=== PATIENT | female | born 1950 | race Caucasian/White ===

== ENCOUNTER 2016-04-27 16:01 | Emergency (ER) | payer MEDICARE, OTHER ==
[~2016-04-27] VITALS: Ht 152.4 cm; Wt 118.0 kg
[~2016-04-27 16:01] MED LIST: ACTO30TA10 PO; ALBU6.7H INH; AMLO10TA2 PO; AMLO2.5T PO; ATEN25TA PO; BD P31MI2; CAPT50TA PO; CARB200T PO; CARI350T20 PO; CHRO200T2; CONTOUR TEST STRIPS; CREON24 PO; CYTO5TAB PO; DICL75TA PO; ENOX60IN SQ; ENOX60P SQ; FURO1TAB60 PO; FURO40TA PO; GABA400C5 PO; GLIM1TAB PO; HUMA75IN SQ; HUMSS SQ; HYDR-3535 PO; HYDR10SO PO; INSU1INJ5 SQ; LEVO50TA4 PO; LIDO5DIS35 TOPICAL; LINA145C PO; MIRA33504 PO; NADO20TA PO; NADO40TA PO; NOVOINJ SQ; OMEP40CA2 PO; REST15CA PO; ROSU40 PO; SENN8.6T5 PO; SIME80CH CHEW; TEMA15CA PO; TRAZ100T4 PO; ZITHTAB PO; [UNRECOGNIZED DRUG - SUPPLY]
[2016-04-27 17:00] VITALS: BP 198/66; PULSE 52; RESP 18; TEMP 97.7; O2SAT 95
[2016-04-27] MEDS ORDERED: SODIUM CHLORIDE 0.9% FLUSH 5 ML FLUSH IVF PRN (17:15)
--- NOTE | 2016-04-27 17:16 | PD ---
HPI Chief Complaint: Syncope/Near-Syncope Time Seen by Provider: 16:53 Travel History International Travel<30 days: No Contact w/Intl Traveler<30days: No Traveled to known affect area: No History of Present Illness HPI The patient was seen and examined in the presence of the nurse. This patient complains of syncopal episode. She was feeling dizzy and lightheaded shortly after eating a meal at a [employer] restaurant. She passed out and fell. She struck the back of her head on the ground. She does complain of headache at the site of impact. She denies any neck pain. No other neurologic complaint. She is no longer dizzy or lightheaded. Her headache is only complaint she has. I do not consider it a distracting injury. She denies blood thinners. She does have history of hypertension and presents with a significant elevated blood pressure. She reports that she has white coat syndrome on top of her blood pressure issues and is hesitant to take anything for it and we compromised on a dose of procardia. Duration was about 5 minutes prior to the syncopal episode. Severity of symptoms is moderate. No alleviating factors PFSH Past Medical History Hx Anticoagulant Therapy: Yes (LOVENOX) Anemia: Yes Arthritis: Yes (OA, RA, SA, FIBRO) Asthma: Yes Autoimmune Disease: No Blood Disorders: Yes (pt is on lovenox ) Anxiety: Yes Depression: Yes Heart Rhythm Problems: Yes (MURMUR) Cancer: No Cardiovascular Problems: No High Cholesterol: Yes Chemotherapy: No Chest Pain: No Congestive Heart Failure: No COPD: No Cerebrovascular Accident: Yes Diabetes: Yes Diminished Hearing: No Deep Vein Thrombosis: Yes Endocrine: Yes Fibromyalgia: Yes Gastrointestinal Disorders: Yes (excessive gas,) GERD: No Genitourinary: No Hepatitis: No Hiatal Hernia: Yes Hypertension: Yes Immune Disorder: No Implanted Vascular Access Dvce: Yes Kidney Stones: No Musculoskeletal: Yes Neurologic: Yes (cva-residual none) Psychiatric: No Reproductive: Yes Respiratory: Yes (ASTHMA) Immunizations Current: Yes Migraines: No Pneumonia: Yes Radiation Therapy: No Renal Failure: No Seizures: Yes (AUGUST 2011) Sickle Cell Disease: No Sleep Apnea: No Thyroid Disease: No Ulcer: No Menopausal: Yes : 1 Para: 1 Dilation and Curettage (D&C): Yes Past Surgical History Abdominal Surgery: Yes ( ABDOMINAL TUMORS REMOVED) AICD: No Arteriovenous Shunt: No Cardiac Surgery: No Cholecystectomy: Yes Ear Surgery: No Endocrine Surgery: No Eye Surgery: No Genitourinary Surgery: Yes (R URETERAL STENT) Gynecologic Surgery: Yes (D&C X4, TOTAL HYSTERECTOMY, BILATERAL OOPHORECTOMY ) Hysterectomy: Yes Insulin Pump: No Joint Replacement: Yes (RIGHT and left KNEE) Neurologic Surgery: Yes (BRAIN -- MENINGIOMA REMOVED 1999) Oral Surgery: Yes (TONSILLECTOMY) Pacemaker: No Tonsillectomy: Yes Other Surgery: Yes (filter placed for blood clots) Social History Alcohol Use: Yes (RARELY) Tobacco Use: No Substance Use: No Allergies-Medications (Allergen,Severity, Reaction): Coded Allergies: Adhesives (Verified Allergy, Severe, skin pealing, 04/27/16) Aspirin (Verified Allergy, Severe, HIVES, 04/27/16) Clonidine (Verified Allergy, Severe, Psychosis. Leg edema, , 04/27/16) "MAKES ME FEEL LOOPY" Compazine (Verified Allergy, Severe, b/p drop, 04/27/16) Coumadin (Verified Allergy, Severe, PT DOES NOT KNOW REACTION, 04/27/16) Erythromycin (Verified Allergy, Severe, 04/27/16) Keflex (Verified Allergy, Severe, Nausea/Vomiting, 04/27/16) Mobic (Verified Allergy, Severe, 04/27/16) PT STATES SHE CAN'T TAKE NSAIDS Morphine (Verified Allergy, Severe, Hallucinations, 04/27/16) Nonsteroidal Anti-Inflammatory Agts (Verified Allergy, Severe, 04/27/16) Percocet (Verified Allergy, Severe, Hallucinations, 04/27/16) Tetracycline (Verified Allergy, Severe, UNKNOWN REACTION PER PT, 04/27/16) Theophylline (Verified Allergy, Severe, Nausea/Vomiting, 04/27/16) Amoxicillin (Verified Allergy, Intermediate, ITCHING, 04/27/16) Antivert (Verified Adverse Reaction, Severe, Nausea/Vomiting,dizzy, ) Cipro (Verified Adverse Reaction, Severe, Nausea/Vomiting, 04/27/16) Effexor (Verified Adverse Reaction, Severe, All the SE, 04/27/16) Glucophage (Verified Adverse Reaction, Severe, Got hypoglycemic and passed out x 2. Dr MAULIK Ridley , 04/27/16) advised her never to take again. Lipitor (Verified Adverse Reaction, Severe, numbness of both legs. , 04/27) Promethazine (Verified Adverse Reaction, Severe, low blood pressure, ) by history according to patient. Uncoded Allergies: NICKEL (Allergy, Severe, RASH, 08/31/13) swelling Ice (Adverse Reaction, Severe, Severe muscle spasms and cramps, 08/31/13) Reported Meds & Prescriptions Reported Meds & Active Scripts Active Lasix (Furosemide) 40 Mg Tab 40 Mg PO DAILY Diclofenac Sodium DR (Diclofenac Sodium) 75 Mg Tabdr 75 Mg PO BID Trazodone (Trazodone HCl) 100 Mg Tab 100 Mg PO HS take this with 150mg tab for sleep Carisoprodol 350 Mg Tab 350 Mg PO TID PRN Lortab (Hydrocodone-Acetaminophen) 10-325 Mg Tab 1 Tab PO Q4H PRN 1-2 three times a day for pain Linzess (Linaclotide) 145 Mcg Cap 145 Mcg PO DAILY Carbamazepine 200 Mg Tab 400 Mg PO TID Levothyroxine (Levothyroxine Sodium) 50 Mcg Tab 50 Mcg PO DAILY Crestor (Rosuvastatin Calcium) 40 Mg Tab 40 Mg PO HS Atenolol 25 Mg Tab 25 Mg PO DAILY Proventil Hfa 6.7 GM Inh (Albuterol Sulfate) 90 Mcg/Act Aer 2 Puff INH Q4HR PRN Captopril 50 Mg Tab 50 Mg PO BIDAC Take 1 hour before meals. Miralax Powder (Polyethylene Glycol 3350 Powder) 17 Gm Powd 17 Gm PO DAILY Mix and dissolve one measuring cap-ful (17 grams) in water or juice. Glimepiride 1 Mg Tab 2 Tab PO BID Take with breakfast or first main meal Actos (Pioglitazone HCl) 30 Mg Tab 30 Mg PO DAILY Temazepam 15 Mg Cap 15 Mg PO HS PRN Amlodipine (Amlodipine Besylate) 2.5 Mg Tab 2.5 Mg PO BID Nadolol 20 Mg Tab 20 Mg PO DAILY Reported Creon (Amylase/Lipase/Protease) 24,000-76,000-120,000 Units Cap 1 Cap PO BID Humalog Inj (Insulin Human Lispro) 1,000 Unit/10 Ml Vial 2-12 Units SQ ACHS Max dose at bedtime:( )units; sugars < 70,(0)units; sugars 150-199,(2)units; sugars 200-249,(4)units; sugars 250-299,(7)units; sugars 300-349,(10)units; sugars more than 349,(12)units. Levemir Flextouch Pen Inj (Insulin Detemir) 300 unit/3 ML Pen 20 Units SQ HS Simethicone 80 Mg Chw 80 Mg CHEW QID PRN Senna (Sennosides) 8.6 Mg Tab 2 Tab PO BID HOLD FOR LOOSE STOOL Lidoderm Patch 12 HR (Lidocaine) 5% Patch 1 Patch TOPICAL DAILY PRN Remove patch after 12 hours Gabapentin 400 Mg Cap 2 Cap PO BID Cytomel (Liothyronine Sodium) 5 Mcg Tab 5 Mcg PO DAILY Omeprazole 40 Mg Cap 40 Mg PO DAILY Enoxaparin Inj (Enoxaparin Sodium) 60 Mg/0.6 Ml Syr 60 Mg SQ BID Review of Systems General / Constitutional: No: Fever Eyes: No: Visual changes HENT: Positive: Headaches, Lightheadedness Cardiovascular: Positive: Syncope, No: Chest Pain or Discomfort Respiratory: No: Shortness of Breath Gastrointestinal: No: Abdominal Pain Genitourinary: No: Dysuria Musculoskeletal: No: Pain Skin: No Rash Neurologic: Positive: Dizziness, Syncope, Headache, No: Weakness Psychiatric: No: Depression Endocrine: No: Polydipsia Hematologic/Lymphatic: No: Easy Bruising Physical Exam Narrative GENERAL: Well-nourished, well-developed patient in no apparent distress. SKIN: Warm and dry. HEAD: Swollen area on the right posterior scalp without laceration. Normocephalic. EYES: Pupils equal and round. No scleral icterus. No injection or drainage. ENT: No nasal bleeding or discharge. Mucous membranes pink and moist. NECK: Trachea midline. No JVD. No midline tenderness CARDIOVASCULAR: Regular rate and rhythm. No murmur appreciated. RESPIRATORY: No accessory muscle use. Clear to auscultation. Breath sounds equal bilaterally. GASTROINTESTINAL: Abdomen soft, non-tender, nondistended. Hepatic and splenic margins not palpable. MUSCULOSKELETAL: No obvious deformities. No clubbing. No cyanosis. No edema. NEUROLOGICAL: Awake and alert. No obvious cranial nerve deficits. Motor grossly within normal limits. Normal speech. PSYCHIATRIC: Appropriate mood and affect; insight and judgment normal. Data Data Last Documented VS Vital Signs Date Time Temp Pulse Resp B/P Pulse Ox O2 Delivery O2 Flow Rate FiO2 04/27/16 17:00 97.7 52 18 198/66 95 04/27/16 17:00 Room Air Orders Electrocardiogram (04/27/16 17:08) Basic Metabolic Panel (Bmp) (04/27/16 17:08) Complete Blood Count With Diff (04/27/16 17:08) Ecg Monitoring (04/27/16 17:08) Iv Access Insert/Monitor (04/27/16 17:08) Sodium Chloride 0.9% Flush (Ns Flush) (04/27/16 17:15) Ct Brain W/O Iv Contrast(Rout) (04/27/16 ) Nifedipine (Procardia) (04/27/16 17:30) Labs Laboratory Tests Test 04/27/16 17:20 White Blood Count 3.9 TH/MM3 Red Blood Count 3.97 MIL/MM3 Hemoglobin 12.1 GM/DL Hematocrit 36.1 % Mean Corpuscular Volume 90.9 FL Mean Corpuscular Hemoglobin 30.5 PG Mean Corpuscular Hemoglobin 33.5 % Concent Red Cell Distribution Width 12.7 % Platelet Count 151 TH/MM3 Mean Platelet Volume 6.3 FL Neutrophils (%) (Auto) 55.7 % Lymphocytes (%) (Auto) 33.3 % Monocytes (%) (Auto) 6.4 % Eosinophils (%) (Auto) 4.0 % Basophils (%) (Auto) 0.6 % Neutrophils # (Auto) 2.2 TH/MM3 Lymphocytes # (Auto) 1.3 TH/MM3 Monocytes # (Auto) 0.2 TH/MM3 Eosinophils # (Auto) 0.2 TH/MM3 Basophils # (Auto) 0.0 TH/MM3 CBC Comment DIFF FINAL Differential Comment Sodium Level 130 MEQ/L Potassium Level 4.2 MEQ/L Chloride Level 94 MEQ/L Carbon Dioxide Level 29.1 MEQ/L Anion Gap 7 MEQ/L Blood Urea Nitrogen 11 MG/DL Creatinine 0.85 MG/DL Estimat Glomerular Filtration 67 ML/MIN Rate Random Glucose 161 MG/DL Calcium Level 8.2 MG/DL [facility] Medical Decision Making Medical Screen Exam Complete: Yes Emergency Medical Condition: Yes Medical Record Reviewed: Yes Differential Diagnosis Intracranial hemorrhage, concussion, vasovagal episode, cardiac arrhythmia Narrative Course I have reviewed the patient's electronic medical record. Patient is neurologically intact. Given her head injury and headache and ordered brain CT. I reviewed her EKG which shows sinus rhythm without ectopy Extended cardiac monitoring shows sinus rhythm without ectopy CBC is normal Metabolic profile is normal except for hyponatremia of 130. She says that she always has hyponatremia and does not want to alter her diuretic dosing. I gave her dose of 10 mg PO procardia and will reassess her blood pressure Repeat blood pressure is still elevated but lower Patient feels fine and wants to go home Brain CT is negative for intracranial injury She should check and record her blood pressure daily and follow up with primary care Diagnosis Primary Impression: Syncopal episodes Qualified Code: R55 - Syncope, unspecified syncope type Additional Impressions: Head injury, acute Qualified Code: S09.90XA - Head injury, acute, initial encounter Accelerated hypertension Additional Instructions: The patient was advised to follow up with their physician and return if they worsen. Check and record blood pressure daily Med/Other Pt SpecificInfo: Other Disposition: 01 DISCHARGE HOME Condition: Stable Sarkis Alaniz MD Apr 27, 2016 17:16
[2016-04-27] MEDS ORDERED: HUMALOG SQ (17:21)
[2016-04-27] MEDS ORDERED: CREON24 PO (17:21)
[2016-04-27] MEDS ORDERED: INSU1INJ5 SQ (17:21)
[2016-04-27] MEDS ORDERED: NIFEdipine 10 MG CAP PO ONE (17:30)
[2016-04-27 17:34] LABS: AUTOMATED NEUTROPHIL # 2.2 TH/MM3 (1.8-7.7); BASOPHIL % 0.6 % (0.0-2.0); EOSINOPHIL # 0.2 TH/MM3 (0-0.4); HEMATOCRIT 36.1 % (35.0-46.0); HEMO FLAGS DIFF FINAL; LYMPH % 33.3 % (9.0-44.0); LYMPHOCYTE # 1.3 TH/MM3 (1.0-4.8); MEAN CELL VOLUME 90.9 FL (80.0-100.0); MEAN CORPUSCULAR HEMOGLOBIN 30.5 PG (27.0-34.0); MEAN CORPUSCULAR HGB CONC 33.5 % (32.0-36.0); MONO % 6.4 % (0.0-8.0); NEUT % 55.7 % (16.0-70.0); PLATELET COUNT 151 TH/MM3 (150-450); RED BLOOD COUNT 3.97 MIL/MM3 (4.00-5.30); RED CELL DISTRIBUTION WIDTH 12.7 % (11.6-17.2); WHITE BLOOD COUNT 3.9 TH/MM3 (4.0-11.0)
[2016-04-27 17:41] LABS: POTASSIUM 4.2 MEQ/L (3.5-5.1)
[2016-04-27 17:44] LABS: BICARBONATE 29.1 MEQ/L (21.0-32.0)
--- NOTE | 2016-04-27 18:14 | RADHPO ---
EXAM DATE/TIME: 04/27/2016 17:37 [facility] COMPARISON: CT BRAIN W/O CONTRAST, August 27, 2015, 18:31. INDICATIONS : Syncope, mass. RADIATION DOSE: 56.75 CTDIvol (mGy) MEDICAL HISTORY : Cerebrovascular disease. Hypertension. Asthma SURGICAL HISTORY : Craniotomy. ENCOUNTER: Initial ACUITY: 1 day PAIN SCALE: 5/10 LOCATION: cranial TECHNIQUE: Multiple contiguous axial images were obtained of the head. Using automated exposure control and adj ustment of the mA and/or kV according to patient size, radiation dose was kept as low as reasonably a chievable to obtain optimal diagnostic quality images. FINDINGS: CEREBRUM: The ventricles are normal for age. Probable dystrophic type calcifications along the anterior aspect of the right temporal lobe are presumably postsurgical with a right temporoparietal craniotomy. No ev idence of midline shift, mass lesion, hemorrhage or acute infarction. No extra-axial fluid collectio ns are seen. POSTERIOR FOSSA: The cerebellum and brainstem are intact. The 4th ventricle is midline. The cerebellopontine angle i s unremarkable. EXTRACRANIAL: The visualized portion of the orbits is intact. SKULL: The calvaria is intact. No evidence of skull fracture. CONCLUSION: 1. Stable postsurgical changes in the right temporal region. 2. No acute intracranial process. Roe Salgado MD on April 27, 2016 at 18:10 Board Certified Radiologist. This report was verified electronically.
[2016-04-27 18:48] VITALS: BP 181/63; PULSE 50; RESP 18; O2SAT 95
--- NOTE | 2016-04-28 09:20 | EKG ---
Date Performed: 04/27/2016 Time Performed: 17:32:32 PTAGE: 65 years EKG: Sinus bradycardia with borderline 1st degree A-V block IV conduction defect Abnormal ECG PREVIOUS TRACING : 06/03/2015 21.44 Compared to prior tracing no significant change DOCTOR: Joey Bradshaw Interpretating Date/Time 04/28/2016 09:19:12
[2016-05-19] MEDS ORDERED: HYDR-3535 PO (11:00)
[2016-05-19] MEDS ORDERED: CARI350T20 PO (11:01)
[2016-05-21] MEDS ORDERED: OMEP40CA2 PO (11:25)
[2016-05-22] MEDS ORDERED: AMLO2.5T PO (13:22)
[2016-05-22] MEDS ORDERED: MIRA33504 PO (13:22)
[2016-05-27] MEDS ORDERED: VENTAER INH (11:56)
[2016-06-03] MEDS ORDERED: INSU1INJ5 SQ (08:50)
[2016-06-19] MEDS ORDERED: CARI350T20 PO (11:21)
[2016-06-19] MEDS ORDERED: TRAZ100T4 PO (11:22)
[2016-06-19] MEDS ORDERED: HYDR-3535 PO (15:19)
[2016-06-19] MEDS ORDERED: ATEN25TA PO (15:28)
[2016-07-03] MEDS ORDERED: HYDR-3535 PO (15:55)
[2016-07-20] MEDS ORDERED: CARI350T20 PO (19:08)
[2016-07-23] MEDS ORDERED: GABA400C5 PO (07:19)
[2016-08-04] MEDS ORDERED: NOVOLOGP2 SQ (11:38)
[2016-08-07] MEDS ORDERED: HYDR-3535 PO (15:30)
[2016-08-20] MEDS ORDERED: TRAZ100T4 PO (15:27)
[2016-08-25] MEDS ORDERED: SOMA350T PO (15:18)
[2016-08-27] MEDS ORDERED: LANTINJ SQ (09:12)
[2016-09-01] MEDS ORDERED: REST15CA PO (08:27)
[2016-09-01] MEDS ORDERED: DIFL150T PO (11:29)
[2016-09-01] MEDS ORDERED: HYDR-3535 PO (11:31)
== END 2016-04-27 18:57 | disposition home or self-care (01) ==
LOC: PHEFT 16:01
DX: R55 Syncope and collapse (principal); S09.90XA Unspecified injury of head, initial encounter; I10 Essential (primary) hypertension; R51 Headache; R94.31 Abnormal electrocardiogram [ECG] [EKG]; E78.00 Pure hypercholesterolemia, unspecified; E11.9 Type 2 diabetes mellitus without complications; W18.39XA Other fall on same level, initial encounter; Z79.01 Long term (current) use of anticoagulants; Z79.4 Long term (current) use of insulin; Z86.2 Personal history of diseases of the blood and blood-forming organs and certain disorders involving the immune mechanism; Z87.39 Personal history of other diseases of the musculoskeletal system and connective tissue; Z87.09 Personal history of other diseases of the respiratory system; Z86.79 Personal history of other diseases of the circulatory system; Z86.718 Personal history of other venous thrombosis and embolism; Z87.19 Personal history of other diseases of the digestive system; Z86.69 Personal history of other diseases of the nervous system and sense organs; Z86.73 Personal history of transient ischemic attack (TIA), and cerebral infarction without residual deficits; Z86.59 Personal history of other mental and behavioral disorders
CPT/HCPCS: 70450; 80048; 85025; 93005

== ENCOUNTER 2016-06-07 17:19 | Inpatient (IN) | payer MEDICARE, OTHER ==
[~2016-06-07 17:19] MED LIST changes: -AMLO10TA2 PO; -BD P31MI2; -CHRO200T2; -CONTOUR TEST STRIPS; -ENOX60P SQ; -FURO40TA PO; -HUMA75IN SQ; +HUMALOG SQ; -HUMSS SQ; -HYDR10SO PO; -NADO20TA PO; -NADO40TA PO; -NOVOINJ SQ; -REST15CA PO; +VENTAER INH; -ZITHTAB PO; -[UNRECOGNIZED DRUG - SUPPLY]
[2016-06-07 17:33] VITALS: BP 221/92; PULSE 61; RESP 20; TEMP 97.3; O2SAT 95
--- NOTE | 2016-06-07 18:24 | PD ---
HPI Chief Complaint: Cardiac Complaint Time Seen by Provider: 18:22 Travel History International Travel<30 days: No Contact w/Intl Traveler<30days: No Traveled to known affect area: No History of Present Illness HPI 65-year-old female with history of hypertension, recent history of syncopal episodes, has a Holter monitor and has been following up with [facility], recently, her monitor has been going off and she has had intermittent episodes of dizziness. She was sent in by Dr. Bradshaw today because she is going to need a pacemaker she is told. She denies any current chest pains, shortness of breath, or dizziness. She denies any other issues. Modifying Factors: None Associated Signs & Symptoms: Intermittent dizziness and syncopal episodes, sent in by signals intelligence analysis manager, needs pacemaker, abnormal Holter results Risk Factors: None PFSH Past Medical History Hx Anticoagulant Therapy: Yes (LOVENOX) Anemia: Yes Arthritis: Yes (OA, RA, SA, FIBRO) Asthma: Yes Autoimmune Disease: No Blood Disorders: Yes (pt is on lovenox ) Anxiety: Yes Depression: Yes Heart Rhythm Problems: Yes (MURMUR) Cancer: No Cardiovascular Problems: Yes High Cholesterol: Yes Chemotherapy: No Chest Pain: No Congestive Heart Failure: No COPD: No Cerebrovascular Accident: Yes Diabetes: Yes Patient Takes Glucophage: No Diminished Hearing: No Deep Vein Thrombosis: Yes Endocrine: Yes Fibromyalgia: Yes Gastrointestinal Disorders: Yes (excessive gas,) GERD: No Genitourinary: No Hepatitis: No Hiatal Hernia: Yes Hypertension: Yes Immune Disorder: No Implanted Vascular Access Dvce: Yes Kidney Stones: No Medical other: Yes (FIBROMYALGIA, RA, OA, PSORIATIC ARTHRITIS, STROKE, HX OF SEIZURES) Musculoskeletal: Yes Neurologic: Yes (cva-residual none) Psychiatric: No Reproductive: Yes Respiratory: Yes (ASTHMA) Immunizations Current: Yes Migraines: No Pneumonia: Yes Radiation Therapy: No Renal Failure: No Seizures: Yes (AUGUST 2011) Sickle Cell Disease: No Sleep Apnea: No Thyroid Disease: No Ulcer: No Menopausal: Yes : 1 Para: 1 Dilation and Curettage (D&C): Yes Past Surgical History Abdominal Surgery: Yes ( ABDOMINAL TUMORS REMOVED) AICD: No Arteriovenous Shunt: No Cardiac Surgery: No Cholecystectomy: Yes Ear Surgery: No Endocrine Surgery: No Eye Surgery: No Genitourinary Surgery: Yes (R URETERAL STENT) Gynecologic Surgery: Yes (D&C X4, TOTAL HYSTERECTOMY, BILATERAL OOPHORECTOMY ) Hysterectomy: Yes Insulin Pump: No Joint Replacement: Yes (RIGHT and left KNEE) Neurologic Surgery: Yes (BRAIN -- MENINGIOMA REMOVED 1999) Oral Surgery: Yes (TONSILLECTOMY) Pacemaker: No Tonsillectomy: Yes Other Surgery: Yes (filter placed for blood clots) Social History Alcohol Use: Yes (RARELY) Tobacco Use: No Substance Use: No Allergies-Medications (Allergen,Severity, Reaction): Coded Allergies: Adhesives (Verified Allergy, Severe, skin pealing, 06/07/16) Aspirin (Verified Allergy, Severe, HIVES, 06/07/16) Clonidine (Verified Allergy, Severe, Psychosis. Leg edema, , 06/07/16) "MAKES ME FEEL LOOPY" Compazine (Verified Allergy, Severe, b/p drop, 06/07/16) Coumadin (Verified Allergy, Severe, PT DOES NOT KNOW REACTION, 06/07/16) Erythromycin (Verified Allergy, Severe, 06/07/16) Keflex (Verified Allergy, Severe, Nausea/Vomiting, 06/07/16) Mobic (Verified Allergy, Severe, 06/07/16) PT STATES SHE CAN'T TAKE NSAIDS Morphine (Verified Allergy, Severe, Hallucinations, 06/07/16) Nonsteroidal Anti-Inflammatory Agts (Verified Allergy, Severe, 06/07/16) Percocet (Verified Allergy, Severe, Hallucinations, 06/07/16) Tetracycline (Verified Allergy, Severe, UNKNOWN REACTION PER PT, 06/07/16) Theophylline (Verified Allergy, Severe, Nausea/Vomiting, 06/07/16) Amoxicillin (Verified Allergy, Intermediate, ITCHING, 06/07/16) Formaldehyde (Verified Allergy, Unknown, not specifically related., ) Antivert (Verified Adverse Reaction, Severe, Nausea/Vomiting,dizzy, ) Cipro (Verified Adverse Reaction, Severe, Nausea/Vomiting, 06/07/16) Effexor (Verified Adverse Reaction, Severe, All the SE, 06/07/16) Glucophage (Verified Adverse Reaction, Severe, Got hypoglycemic and passed out x 2. Dr MAULIK Ridley , 06/07/16) advised her never to take again. Lipitor (Verified Adverse Reaction, Severe, numbness of both legs. , 06/07) Promethazine (Verified Adverse Reaction, Severe, low blood pressure, ) by history according to patient. Uncoded Allergies: NICKEL (Allergy, Severe, RASH, 08/31/13) swelling Ice (Adverse Reaction, Severe, Severe muscle spasms and cramps, 08/31/13) Reported Meds & Prescriptions Reported Meds & Active Scripts Active Ventolin Hfa 18 GM Inh (Albuterol Sulfate) 90 Mcg/Act Aer 2 Puff INH Q6H PRN Carisoprodol 350 Mg Tab 350 Mg PO TID PRN Lortab (Hydrocodone-Acetaminophen) 10-325 Mg Tab 1 Tab PO Q4H PRN 1-2 three times a day for pain Lasix (Furosemide) 40 Mg Tab 40 Mg PO DAILY Linzess (Linaclotide) 145 Mcg Cap 145 Mcg PO DAILY Carbamazepine 200 Mg Tab 400 Mg PO TID Levothyroxine (Levothyroxine Sodium) 50 Mcg Tab 50 Mcg PO DAILY Crestor (Rosuvastatin Calcium) 40 Mg Tab 40 Mg PO HS Glimepiride 1 Mg Tab 2 Tab PO BID Take with breakfast or first main meal Actos (Pioglitazone HCl) 30 Mg Tab 30 Mg PO DAILY Reported Diclofenac Sodium DR (Diclofenac Sodium) 75 Mg Tabdr 75 Mg PO DAILY Gabapentin 800 Mg Tab 800 Mg PO TID Levemir Flextouch Pen Inj (Insulin Detemir) 300 unit/3 ML Pen 20 Units SQ HS Lisinopril 20 Mg Tab 20 Mg PO HS Omeprazole 40 Mg Cap 40 Mg PO HS Miralax Powder (Polyethylene Glycol 3350 Powder) 17 Gm Powd 17 Gm PO DAILY PRN Mix and dissolve one measuring cap-ful (17 grams) in water or juice. Restoril (Temazepam) 15 Mg Cap 15 Mg PO HS Trazodone (Trazodone HCl) 100 Mg Tab 250 Mg PO HS Creon (Amylase/Lipase/Protease) 24,000-76,000-120,000 Units Cap 1 Cap PO BID Humalog Inj (Insulin Human Lispro) 1,000 Unit/10 Ml Vial 2-12 Units SQ ACHS Max dose at bedtime:( )units; sugars < 70,(0)units; sugars 150-199,(2)units; sugars 200-249,(4)units; sugars 250-299,(7)units; sugars 300-349,(10)units; sugars more than 349,(12)units. Lidoderm Patch 12 HR (Lidocaine) 5% Patch 1 Patch TOPICAL DAILY PRN Remove patch after 12 hours Cytomel (Liothyronine Sodium) 5 Mcg Tab 5 Mcg PO HS Review of Systems Except as stated in HPI: all other systems reviewed are Neg Physical Exam Narrative GENERAL: Pleasant elderly white female patient currently not in acute distress. She is awake and oriented 3. SKIN: Focused skin assessment warm/dry. HEAD: Atraumatic. Normocephalic. EYES: Pupils equal and round. No scleral icterus. No injection or drainage. ENT: No nasal bleeding or discharge. Mucous membranes pink and moist. NECK: Trachea midline. No JVD. CARDIOVASCULAR: Regular rate and rhythm. No murmur appreciated. RESPIRATORY: No accessory muscle use. Clear to auscultation. Breath sounds equal bilaterally. GASTROINTESTINAL: Abdomen soft, non-tender, nondistended. Hepatic and splenic margins not palpable. MUSCULOSKELETAL: No obvious deformities. No clubbing. No cyanosis. No edema. NEUROLOGICAL: Awake and alert. No obvious cranial nerve deficits. Motor grossly within normal limits. Normal speech. PSYCHIATRIC: Appropriate mood and affect; insight and judgment normal. Data Data Last Documented VS Vital Signs Date Time Temp Pulse Resp B/P Pulse Ox O2 Delivery O2 Flow Rate FiO2 06/07/16 18:08 18 06/07/16 17:33 97.3 61 221/92 95 Room Air Orders Electrocardiogram (06/07/16 18:17) Ckmb (Isoenzyme) Profile (06/07/16 18:17) Complete Blood Count With Diff (06/07/16 18:17) Comprehensive Metabolic Panel (06/07/16 18:17) Magnesium (Mg) (06/07/16 18:17) Prothrombin Time / Inr (Pt) (06/07/16 18:17) Act Partial Throm Time (Ptt) (06/07/16 18:17) Troponin I (06/07/16 18:17) Chest, Single Ap (06/07/16 18:17) Ecg Monitoring (06/07/16 18:17) Bilateral Bp Monitoring (06/07/16 18:17) Iv Access Insert/Monitor (06/07/16 18:17) Oximetry (06/07/16 18:17) Oxygen Administration (06/07/16 18:17) Sodium Chloride 0.9% Flush (Ns Flush) (06/07/16 18:30) Labs Laboratory Tests Test 06/07/16 18:30 White Blood Count 3.9 TH/MM3 Red Blood Count 3.61 MIL/MM3 Hemoglobin 11.1 GM/DL Hematocrit 32.8 % Mean Corpuscular Volume 90.9 FL Mean Corpuscular Hemoglobin 30.8 PG Mean Corpuscular Hemoglobin 33.8 % Concent Red Cell Distribution Width 13.5 % Platelet Count 146 TH/MM3 Mean Platelet Volume 7.4 FL Neutrophils (%) (Auto) 36.4 % Lymphocytes (%) (Auto) 48.1 % Monocytes (%) (Auto) 9.2 % Eosinophils (%) (Auto) 5.5 % Basophils (%) (Auto) 0.8 % Neutrophils # (Auto) 1.4 TH/MM3 Lymphocytes # (Auto) 1.9 TH/MM3 Monocytes # (Auto) 0.4 TH/MM3 Eosinophils # (Auto) 0.2 TH/MM3 Basophils # (Auto) 0.0 TH/MM3 CBC Comment DIFF FINAL Differential Comment Prothrombin Time 10.4 SEC Prothromb Time International 0.9 RATIO Ratio Activated Partial 28.3 SEC Thromboplast Time MDM Medical Decision Making Medical Screen Exam Complete: Yes Emergency Medical Condition: Yes Medical Record Reviewed: Yes Differential Diagnosis Syncopal episodes, dizziness, abnormal heart rhythmsrule out metabolic issues versus dehydration, versus current dysrhythmia Narrative Course Lab work and chest x-ray ordered for the patient. Physician Communication Physician Communication Case signed out to Dr. Lang at 7 PM awaiting workup. Planning for admission. Diagnosis Primary Impression: Dysrhythmias Additional Impression: Syncope Admitting Information Admitting Physician Requests: Admit Laura Berrios MD Jun 07, 2016 18:24
[2016-06-07] MEDS ORDERED: SODIUM CHLORIDE 0.9% FLUSH 10 ML FLUSH IVF PRN (18:30)
[2016-06-07] MEDS ORDERED: TRAZ100T4 PO (18:56)
[2016-06-07] MEDS ORDERED: REST15CA PO (18:56)
[2016-06-07 18:57] LABS: AUTOMATED NEUTROPHIL # 1.4 TH/MM3 (1.8-7.7); BASOPHIL % 0.8 % (0.0-2.0); EOSINOPHIL # 0.2 TH/MM3 (0-0.4); EOSINOPHIL % 5.5 % (0.0-4.0); HEMATOCRIT 32.8 % (35.0-46.0); HEMO FLAGS DIFF FINAL; LYMPH % 48.1 % (9.0-44.0); LYMPHOCYTE # 1.9 TH/MM3 (1.0-4.8); MEAN CELL VOLUME 90.9 FL (80.0-100.0); MEAN CORPUSCULAR HEMOGLOBIN 30.8 PG (27.0-34.0); MEAN CORPUSCULAR HGB CONC 33.8 % (32.0-36.0); MONO % 9.2 % (0.0-8.0); NEUT % 36.4 % (16.0-70.0); PLATELET COUNT 146 TH/MM3 (150-450); RED BLOOD COUNT 3.61 MIL/MM3 (4.00-5.30); RED CELL DISTRIBUTION WIDTH 13.5 % (11.6-17.2); WHITE BLOOD COUNT 3.9 TH/MM3 (4.0-11.0)
[2016-06-07] MEDS ORDERED: OMEP40CA2 PO (18:59)
[2016-06-07] MEDS ORDERED: MIRA33504 PO (18:59)
[2016-06-07] MEDS ORDERED: LISI-515 PO (18:59)
[2016-06-07] MEDS ORDERED: INSU1INJ5 SQ (19:01)
[2016-06-07] MEDS ORDERED: GABA800T PO (19:03)
[2016-06-07] MEDS ORDERED: DICL75TA PO (19:05)
[2016-06-07 19:08] LABS: APTT (PATIENT) 28.3 SEC (24.3-30.1); INTERNATIONAL NORMALIZED RATIO 0.9 RATIO; PROTHROMBIN TIME - PATIENT 10.4 SEC (9.8-11.6)
[2016-06-07 19:17] LABS: ANION GAP 9 MEQ/L (5-15); AST (GOT) 22 U/L (15-37); BICARBONATE 27.5 MEQ/L (21.0-32.0); BLOOD UREA NITROGEN 15 MG/DL (7-18); CHLORIDE 92 MEQ/L (98-107); GLOMERULAR FILTRATION RATE 68 ML/MIN (>89); SODIUM (NA) 128 MEQ/L (136-145)
[2016-06-07 19:24] LABS: POTASSIUM 4.5 MEQ/L (3.5-5.1)
[2016-06-07 19:27] LABS: ALKALINE PHOSPHATASE 84 U/L (45-117); ALT (GPT) 25 U/L (10-53); CREATINE KINASE 229 U/L (26-192); TOTAL BILIRUBIN ADULT 0.3 MG/DL (0.2-1.0)
[2016-06-07 19:29] VITALS: BP 174/74; PULSE 51; RESP 16; TEMP 98; O2SAT 95
--- NOTE | 2016-06-07 19:36 | RADRPT ---
EXAM DATE/TIME: 06/07/2016 18:41 [facility] COMPARISON: CHEST SINGLE AP, August 08, 2014, 19:40. INDICATIONS : Shortness of breath. MEDICAL HISTORY : Diabetes mellitus type II. Hiatal hernia. Hypertension. Asthma SURGICAL HISTORY : Cholecystectomy. ENCOUNTER: Initial ACUITY: 1 day PAIN SCORE: 0/10 LOCATION: Bilateral chest FINDINGS: A single view of the chest demonstrates the lungs to be symmetrically aerated without evidence of mas s, infiltrate or effusion. Minimal basilar atelectasis. The cardiomediastinal contours are mildly pro minent. Osseous structures are intact. CONCLUSION: 1. Cardiomegaly with minimal basilar atelectasis. Salvatore Oleary MD on June 07, 2016 at 19:34 Board Certified Radiologist. This report was verified electronically.
[2016-06-07 19:40] LABS: CKMB 5.9 NG/ML (0.5-3.6)
--- NOTE | 2016-06-07 20:11 | PD ---
Data Data Last Documented VS Vital Signs Date Time Temp Pulse Resp B/P Pulse Ox O2 Delivery O2 Flow Rate FiO2 06/07/16 19:29 98.0 51 16 174/74 95 Room Air Orders Electrocardiogram (06/07/16 18:17) Ckmb (Isoenzyme) Profile (06/07/16 18:17) Complete Blood Count With Diff (06/07/16 18:17) Comprehensive Metabolic Panel (06/07/16 18:17) Magnesium (Mg) (06/07/16 18:17) Prothrombin Time / Inr (Pt) (06/07/16 18:17) Act Partial Throm Time (Ptt) (06/07/16 18:17) Troponin I (06/07/16 18:17) Chest, Single Ap (06/07/16 18:17) Ecg Monitoring (06/07/16 18:17) Bilateral Bp Monitoring (06/07/16 18:17) Iv Access Insert/Monitor (06/07/16 18:17) Oximetry (06/07/16 18:17) Oxygen Administration (06/07/16 18:17) Sodium Chloride 0.9% Flush (Ns Flush) (06/07/16 18:30) CKMB (06/07/16 18:30) CKMB% (06/07/16 18:30) Sodium Chlor 0.9% 1000 Ml Inj (Ns 1000 M (06/07/16 20:15) Admit Order (Ed Use Only) (06/07/16 20:22) Labs Laboratory Tests Test 06/07/16 18:30 White Blood Count 3.9 TH/MM3 Red Blood Count 3.61 MIL/MM3 Hemoglobin 11.1 GM/DL Hematocrit 32.8 % Mean Corpuscular Volume 90.9 FL Mean Corpuscular Hemoglobin 30.8 PG Mean Corpuscular Hemoglobin 33.8 % Concent Red Cell Distribution Width 13.5 % Platelet Count 146 TH/MM3 Mean Platelet Volume 7.4 FL Neutrophils (%) (Auto) 36.4 % Lymphocytes (%) (Auto) 48.1 % Monocytes (%) (Auto) 9.2 % Eosinophils (%) (Auto) 5.5 % Basophils (%) (Auto) 0.8 % Neutrophils # (Auto) 1.4 TH/MM3 Lymphocytes # (Auto) 1.9 TH/MM3 Monocytes # (Auto) 0.4 TH/MM3 Eosinophils # (Auto) 0.2 TH/MM3 Basophils # (Auto) 0.0 TH/MM3 CBC Comment DIFF FINAL Differential Comment Prothrombin Time 10.4 SEC Prothromb Time International 0.9 RATIO Ratio Activated Partial 28.3 SEC Thromboplast Time Sodium Level 128 MEQ/L Potassium Level 4.5 MEQ/L Chloride Level 92 MEQ/L Carbon Dioxide Level 27.5 MEQ/L Anion Gap 9 MEQ/L Blood Urea Nitrogen 15 MG/DL Creatinine 0.84 MG/DL Estimat Glomerular Filtration 68 ML/MIN Rate Random Glucose 103 MG/DL Calcium Level 8.4 MG/DL Magnesium Level 2.0 MG/DL Total Bilirubin 0.3 MG/DL Aspartate Amino Transf 22 U/L (AST/SGOT) Alanine Aminotransferase 25 U/L (ALT/SGPT) Alkaline Phosphatase 84 U/L Total Creatine Kinase 229 U/L Creatine Kinase MB 5.9 NG/ML Creatine Kinase MB % 2.6 % Troponin I LESS THAN 0.02 NG/ML Total Protein 7.2 GM/DL Albumin 3.9 GM/DL [facility] Medical Record Reviewed: Yes Supervised Visit with LITTLE: No Narrative Course CBC & BMP Diagram 06/07/16 18:30 Total CK 229 Tn < 0.02 INR 0.9 The patient assessed at about 8 PM. No complaints are p.m. The patient will be admitted to the family law attorney service. Discussed with Dr. Greenfield. Diagnosis Primary Impression: Dysrhythmias Qualified Code: I49.9 - Cardiac arrhythmia, unspecified cardiac arrhythmia type Additional Impression: Syncope Qualified Code: R55 - Syncope, unspecified syncope type Admitting Information Admitting Physician Requests: Admit Eder Lang MD Jun 07, 2016 20:11
[2016-06-07] MEDS ORDERED: SODIUM CHLOR 0.9% 1000 ML INJ 1,000 ML IV ONE (20:15)
--- NOTE | 2016-06-07 20:20 | HHI.HP ---
[facility] Service Family Medicine Primary Care Physician Javier Dill MD Admission Diagnosis Diagnoses: International Travel<30 Days: No Contact w/Intl Traveler<30days: No Known Affected Area: No History of Present Illness This is a 65-year-old female with history of multiple syncopal episodes in the past 2 years who is being followed by heel pricker Dr. Sanders and cardiothoracic surgeon Dr. Bradshaw. The patient has had a Holter monitor placed which has been recording episodes of dysrhythmia. Recently, her monitor has been going off more than usual. Over the past 24 hours she has had "countless" episodes where she has felt dizzy. She does not feel palpitations, however she feels them" in her head." She feels very dizzy during these episodes and must sit down. She called her heel pricker who informed her to come to the emergency room where she will be admitted with cardiology consultation for a pacemaker placement during this hospitalization. Otherwise, the patient is doing fine and has no complaints. Denies chest pain, nausea, vomiting, shortness of breath. No dysuria. Review of Systems Constitutional: DENIES: Fever, Chills Eyes: DENIES: Blurred vision, Diplopia Respiratory: DENIES: Apneas, Cough Cardiovascular: COMPLAINS OF: Syncope, DENIES: Chest pain, Palpitations Gastrointestinal: DENIES: Abdominal pain, Black stools, Bloody stools, Constipation, Diarrhea, Nausea, Vomiting Genitourinary: DENIES: Urinary frequency, Urinary incontinence, Dysuria Musculoskeletal: COMPLAINS OF: Joint pain, Muscle aches Integumentary: DENIES: Pruritus, Rash Neurologic: DENIES: Abnormal gait, Headache Psychiatric: DENIES: Anxiety, Confusion Past Family Social History Past Medical History Benign Meningioma 1999 with recurrance 2001 (13 mo later) UTI w/hospitalization Oct 2011 Low back pain Arthritis Edema Constipation Seizures Hypothyroid Hyperlipidemia Diabetes- takes 20 units of Levemir nightly with lispro sliding scale. Insomnia Past Surgical History TRINIDAD & BSO [address] 21 [address] Frank Wilder D&C x 4 before that 70-71 T&A age 18 Laparoscopy age 39 R Knee replace 2004 Dr Bermudez Reported Medications Reported Meds & Active Scripts Active Ventolin Hfa 18 GM Inh (Albuterol Sulfate) 90 Mcg/Act Aer 2 Puff INH Q6H PRN Carisoprodol 350 Mg Tab 350 Mg PO TID PRN Lortab (Hydrocodone-Acetaminophen) 10-325 Mg Tab 1 Tab PO Q4H PRN 1-2 three times a day for pain Lasix (Furosemide) 40 Mg Tab 40 Mg PO DAILY Linzess (Linaclotide) 145 Mcg Cap 145 Mcg PO DAILY Carbamazepine 200 Mg Tab 400 Mg PO TID- seizures Levothyroxine (Levothyroxine Sodium) 50 Mcg Tab 50 Mcg PO DAILY Crestor (Rosuvastatin Calcium) 40 Mg Tab 40 Mg PO HS Glimepiride 1 Mg Tab 2 Tab PO BID Take with breakfast or first main meal Actos (Pioglitazone HCl) 30 Mg Tab 30 Mg PO DAILY Reported Diclofenac Sodium DR (Diclofenac Sodium) 75 Mg Tabdr 75 Mg PO DAILY Gabapentin 800 Mg Tab 800 Mg PO TID -seizures Levemir Flextouch Pen Inj (Insulin Detemir) 300 unit/3 ML Pen 20 Units SQ HS Lisinopril 20 Mg Tab 20 Mg PO HS Omeprazole 40 Mg Cap 40 Mg PO HS Miralax Powder (Polyethylene Glycol 3350 Powder) 17 Gm Powd 17 Gm PO DAILY PRN Mix and dissolve one measuring cap-ful (17 grams) in water or juice. Restoril (Temazepam) 15 Mg Cap 15 Mg PO HS Trazodone (Trazodone HCl) 100 Mg Tab 250 Mg PO HS Creon (Amylase/Lipase/Protease) 24,000-76,000-120,000 Units Cap 1 Cap PO BID Humalog Inj (Insulin Human Lispro) 1,000 Unit/10 Ml Vial 2-12 Units SQ ACHS Max dose at bedtime:( )units; sugars < 70,(0)units; sugars 150-199,(2)units; sugars 200-249,(4)units; sugars 250-299,(7)units; sugars 300-349,(10)units; sugars more than 349,(12)units. Lidoderm Patch 12 HR (Lidocaine) 5% Patch 1 Patch TOPICAL DAILY PRN Remove patch after 12 hours Cytomel (Liothyronine Sodium) 5 Mcg Tab 5 Mcg PO HS Allergies: Coded Allergies: Adhesives (Verified Allergy, Severe, skin pealing, 06/07/16) Aspirin (Verified Allergy, Severe, HIVES, 06/07/16) Clonidine (Verified Allergy, Severe, Psychosis. Leg edema, , 06/07/16) "MAKES ME FEEL LOOPY" Compazine (Verified Allergy, Severe, b/p drop, 06/07/16) Coumadin (Verified Allergy, Severe, PT DOES NOT KNOW REACTION, 06/07/16) Erythromycin (Verified Allergy, Severe, 06/07/16) Keflex (Verified Allergy, Severe, Nausea/Vomiting, 06/07/16) Mobic (Verified Allergy, Severe, 06/07/16) PT STATES SHE CAN'T TAKE NSAIDS Morphine (Verified Allergy, Severe, Hallucinations, 06/07/16) Nonsteroidal Anti-Inflammatory Agts (Verified Allergy, Severe, 06/07/16) Percocet (Verified Allergy, Severe, Hallucinations, 06/07/16) Tetracycline (Verified Allergy, Severe, UNKNOWN REACTION PER PT, 06/07/16) Theophylline (Verified Allergy, Severe, Nausea/Vomiting, 06/07/16) Amoxicillin (Verified Allergy, Intermediate, ITCHING, 06/07/16) Formaldehyde (Verified Allergy, Unknown, not specifically related., ) Antivert (Verified Adverse Reaction, Severe, Nausea/Vomiting,dizzy, ) Cipro (Verified Adverse Reaction, Severe, Nausea/Vomiting, 06/07/16) Effexor (Verified Adverse Reaction, Severe, All the SE, 06/07/16) Glucophage (Verified Adverse Reaction, Severe, Got hypoglycemic and passed out x 2. Dr MAULIK Ridley , 06/07/16) advised her never to take again. Lipitor (Verified Adverse Reaction, Severe, numbness of both legs. , 06/07) Promethazine (Verified Adverse Reaction, Severe, low blood pressure, ) by history according to patient. Uncoded Allergies: NICKEL (Allergy, Severe, RASH, 08/31/13) swelling Ice (Adverse Reaction, Severe, Severe muscle spasms and cramps, 08/31/13) Active Ordered Medications Active Medications Sodium Chloride (NS 1000 ml Inj) 1,000 ml @ 999 mls/hr BOLUS ONCE IV; Start at 20:15; Stop 06/07/16 at 21:15 Sodium Chloride 2 ml 2 ml UNSCH PRN IVF; Start 06/07/16 at 18:30 Family History CAD with 2 5way bypasses before DM 2 in real mother Cancers: Fathers great aunt ovarian cancer. Mother of pancreatic cancer . Social History Marrital Status: x 3. 3 times. Lost 3rd one over a yr ago. Living Situation: mobile home. Lives alone. Education: BA in Safety[employer] and Social Work history: Currently disabled and just got her disability approved. Tobacco: 2 mo of smoking in teens. Alcohol: Never Illicit drug use: none Physical Exam Vital Signs Vital Signs Date Time Temp Pulse Resp B/P Pulse Ox O2 Delivery O2 Flow Rate FiO2 06/07/16 19:29 98.0 51 16 174/74 95 Room Air 06/07/16 19:29 94 Room Air 06/07/16 18:08 18 06/07/16 17:33 97.3 61 20 221/92 95 Room Air Physical Exam GENERAL: This is a well-nourished, well-developed patient, in no apparent distress. SKIN: No rashes. Lower left leg ecchymoses. Cool and dry. HEAD: Atraumatic. Normocephalic. No temporal or scalp tenderness. EYES: Pupils equal round and reactive. Extraocular motions intact. No scleral icterus. No injection or drainage. ENT: Nose without bleeding, purulent drainage or septal hematoma. Throat without erythema, tonsillar hypertrophy or exudate. Uvula midline. Airway patent. NECK: Trachea midline. No JVD or lymphadenopathy. Supple, nontender, no meningeal signs. CARDIOVASCULAR: Regular rate and rhythm without murmurs, gallops, or rubs. RESPIRATORY: Clear to auscultation. Breath sounds equal bilaterally. No wheezes , rales, or rhonchi. GASTROINTESTINAL: Abdomen soft, non-tender, nondistended. No hepato-splenomegaly , or palpable masses. No guarding. MUSCULOSKELETAL: Extremities without clubbing, cyanosis, or edema. No joint tenderness, effusion, or edema noted. No calf tenderness. Negative Homans sign bilaterally. NEUROLOGICAL: Awake and alert. Cranial nerves II through XII intact. Motor and sensory grossly within normal limits. Five out of 5 muscle strength in all muscle groups. Normal speech. Laboratory Laboratory Tests Test 06/07/16 18:30 White Blood Count 3.9 Red Blood Count 3.61 Hemoglobin 11.1 Hematocrit 32.8 Mean Corpuscular Volume 90.9 Mean Corpuscular Hemoglobin 30.8 Mean Corpuscular Hemoglobin 33.8 Concent Red Cell Distribution Width 13.5 Platelet Count 146 Mean Platelet Volume 7.4 Neutrophils (%) (Auto) 36.4 Lymphocytes (%) (Auto) 48.1 Monocytes (%) (Auto) 9.2 Eosinophils (%) (Auto) 5.5 Basophils (%) (Auto) 0.8 Neutrophils # (Auto) 1.4 Lymphocytes # (Auto) 1.9 Monocytes # (Auto) 0.4 Eosinophils # (Auto) 0.2 Basophils # (Auto) 0.0 CBC Comment DIFF FINAL Differential Comment Prothrombin Time 10.4 Prothromb Time International 0.9 Ratio Activated Partial 28.3 Thromboplast Time Sodium Level 128 Potassium Level 4.5 Chloride Level 92 Carbon Dioxide Level 27.5 Anion Gap 9 Blood Urea Nitrogen 15 Creatinine 0.84 Estimat Glomerular Filtration 68 Rate Random Glucose 103 Calcium Level 8.4 Magnesium Level 2.0 Total Bilirubin 0.3 Aspartate Amino Transf 22 (AST/SGOT) Alanine Aminotransferase 25 (ALT/SGPT) Alkaline Phosphatase 84 Total Creatine Kinase 229 Creatine Kinase MB 5.9 Creatine Kinase MB % 2.6 Troponin I LESS THAN 0.02 Total Protein 7.2 Albumin 3.9 Result Diagram: 06/07/16182906/07/161829 Imaging Last Impressions Chest X-Ray 06/07/161816 Signed Impressions: Service Date/Time: Tuesday, June 07, 2016 18:41 - CONCLUSION: 1. Cardiomegaly with minimal basilar atelectasis. Salvatore Oleary MD Assessment and Plan Assessment and Plan 65-year-old female with history of multiple syncopal episodes presents after contacting her heel pricker office with episodes of dizziness and in which her Holter monitor showed episodes of long pauses between beats. Patient will be admitted for cardiology consultation for pacemaker implantation. Code Status Full Discussed Condition With Dr. Dill; he is out of town and will not be able to partake in the patient' s care Problem List: (1) Dysrhythmias Status: Acute Plan: Patient has known dysrhythmia which is caused syncopal episodes. She presents with dizziness from this. That is post Holter monitor implantation. Patient will be admitted for pacemaker implantation. Cardiology consulted, Dr. Bradshaw Nothing by mouth after midnight for expected procedure Place patient on telemetry (2) FEN/PPX Status: Acute Plan: Fluids: Normal saline 100 mils per hour while the patient is nothing by mouth Electrolytes: Monitor and replace when necessary Nutrition: Heart healthy diet. Nothing by mouth after midnight for expected procedure Prophylaxis: Bilateral SCDs Chronic medical problems: * Low back pain- continue Soma 350 mg 3 times a day when necessary, Lortab every 4 hours when necessary * Arthritis- continue pain medications as above * Edema- continue Lasix 40 mg daily * Constipation- continue when necessary stool softeners/laxatives * Seizures- continue carbamazepine 200 mg by mouth 3 times a day * Hypothyroid- continue Synthroid 50 g by mouth daily * Hyperlipidemia- continue Crestor * Diabetes- normally patient takes 20 units of Levemir nightly with lispro sliding scale; will decrease to 5 units Levemir as the patient will be nothing by mouth at midnight. Cover with sliding scale. Holding oral diabetic medications * Insomnia- continue trazodone 250 mg by mouth at bedtime, temazepam 15 mg by mouth at bedtime Physician Certification 2 Midnight Certification Type: Admission for Inpatient Services Order for Inpatient Services The services are ordered in accordance with Medicare regulations or non- Medicare payer requirements, as applicable. In the case of services not specified as inpatient-only, they are appropriately provided as inpatient services in accordance with the 2-midnight benchmark. Estimated LOS (days): 2 days is the estimated time the patient will need to remain in the hospital, assuming treatment plan goals are met and no additional complications. Post-Hospital Plan: Not yet determined Problem Qualifiers (1) Dysrhythmias: Qualified Code: I49.9 - Cardiac arrhythmia, unspecified cardiac arrhythmia type Matthew Greenfield MD R2 Jun 07, 2016 20:20
[2016-06-07] MEDS ORDERED: SODIUM CHLOR 0.9% 1000 ML INJ 1,000 ML IV SCH (21:00)
[2016-06-07] MEDS ORDERED: DEXTROSE 50% IN WATER 50 ML VIAL(D50) IV PUSH PRN (21:15)
[2016-06-07] MEDS ORDERED: POLYETHYLENE GLYCOL 17 GM PKG PO PRN (21:15)
[2016-06-07] MEDS ORDERED: GLUCAGON 1 MG/ML VIAL OTHER PRN (21:15)
[2016-06-07] MEDS ORDERED: PILL SPLITTER OTHER PRN (21:15)
[2016-06-07] MEDS ORDERED: ACETAMINOPHEN/HYDROcodone 325 MG/10 MG TAB PO PRN (21:15)
[2016-06-07] MEDS ORDERED: ALBUTEROL SULFATE 90 MCG/ACT HFA 8 GM INHALER INH PRN (21:15)
[2016-06-07] MEDS ORDERED: SODIUM CHLORIDE 0.9% FLUSH 10 ML FLUSH IV FLUSH PRN (21:15)
[2016-06-07] MEDS ORDERED: NALOXONE HCL 0.4 MG/ML AMP IV PRN (21:15)
[2016-06-07] MEDS ORDERED: INSULIN DETEMIR 100 UNITS/ML VIAL SQ SCH (21:15)
[2016-06-07 22:12] VITALS: BP 211/88; PULSE 54; RESP 20; TEMP 98; O2SAT 98
[2016-06-07] MEDS ORDERED: LISINOPRIL 20 MG TAB PO ONE (23:15)
[2016-06-07] MEDS: hydrALAZINE HCL 20 MG/ML VIAL IV PRN (23:20)
[2016-06-07 23:28] VITALS: BP 177/76; PULSE 57; RESP 21; O2SAT 97
[2016-06-08] VITALS (19 sets, daily range): BP systolic 138–181; BP diastolic 62–77; PULSE 55–63; RESP 16–20; TEMP 97.4–97.9; O2SAT 94–99
[2016-06-08] MEDS ORDERED: PROMETHAZINE HCL 25 MG TAB PO ONE (02:30)
[2016-06-08] MEDS: CARISOPRODOL 350 MG TAB PO PRN ×2 (04:24→21:28)
[2016-06-08 05:14] LABS: AUTOMATED NEUTROPHIL # 1.8 TH/MM3 (1.8-7.7); BASOPHIL % 0.6 % (0.0-2.0); EOSINOPHIL # 0.2 TH/MM3 (0-0.4); EOSINOPHIL % 5.2 % (0.0-4.0); HEMATOCRIT 31.7 % (35.0-46.0); HEMO FLAGS DIFF FINAL; LYMPH % 36.6 % (9.0-44.0); LYMPHOCYTE # 1.3 TH/MM3 (1.0-4.8); MEAN CELL VOLUME 90.2 FL (80.0-100.0); MEAN CORPUSCULAR HEMOGLOBIN 31.4 PG (27.0-34.0); MEAN CORPUSCULAR HGB CONC 34.8 % (32.0-36.0); MONO % 8.6 % (0.0-8.0); PLATELET COUNT 133 TH/MM3 (150-450); RED BLOOD COUNT 3.52 MIL/MM3 (4.00-5.30); RED CELL DISTRIBUTION WIDTH 13.9 % (11.6-17.2); WHITE BLOOD COUNT 3.6 TH/MM3 (4.0-11.0)
[2016-06-08 05:24] LABS: ALKALINE PHOSPHATASE 78 U/L (45-117); ALT (GPT) 22 U/L (10-53); ANION GAP 8 MEQ/L (5-15); AST (GOT) 15 U/L (15-37); BICARBONATE 27.7 MEQ/L (21.0-32.0); BLOOD UREA NITROGEN 12 MG/DL (7-18); CHLORIDE 93 MEQ/L (98-107); GLOMERULAR FILTRATION RATE 84 ML/MIN (>89); POTASSIUM 4.4 MEQ/L (3.5-5.1); SODIUM (NA) 129 MEQ/L (136-145); TOTAL BILIRUBIN ADULT 0.4 MG/DL (0.2-1.0)
[2016-06-08] MEDS: LEVOTHYROXINE SODIUM 50 MCG TAB PO SCH (05:52)
[2016-06-08] MEDS: INSULIN NovoLIN REGULAR SUPPLEMENTAL SCALE SQ SCH ×4 (07:00→21:25)
[2016-06-08] MEDS ORDERED: SODIUM CHLOR 0.9% 1000 ML INJ 1,000 ML IV SCH (07:43)
[2016-06-08] MEDS ORDERED: CHLORHEXIDINE GLUCONATE 2 % 1 PACK (2 CLOTHS) TOP SCH (07:45)
[2016-06-08] MEDS ORDERED: POVIDONE IODINE 5% (ANTISEPSIS KIT) 4 APPLICATIONS EACH NARE SCH (07:45)
[2016-06-08] MEDS ORDERED: MUPIROCIN 2% OINT 1 APPLIC/GM SYR NASAL SCH (07:45)
[2016-06-08] MEDS: LIPASE/PROTEASE/AMYLASE (24,000/76,000/120,000) CAP PO SCH ×2 (08:29→21:28)
[2016-06-08] MEDS: SODIUM CHLORIDE 0.9% FLUSH 10 ML FLUSH IV FLUSH SCH ×2 (08:30→21:00)
[2016-06-08] MEDS: carBAMazepine 200 MG TAB PO SCH ×3 (08:31→17:25)
[2016-06-08] MEDS: FUROSEMIDE 40 MG TAB PO SCH (08:31)
[2016-06-08] MEDS: GABAPENTIN 400 MG CAP PO SCH ×3 (08:31→17:25)
--- NOTE | 2016-06-08 08:31 | MB ---
cc: GREYSON KRISHNAMURTHY M.D. DATE OF CONSULTATION 06/08/2016 REASON FOR CONSULTATION Evaluation treatment of symptomatic bradycardia. HISTORY OF PRESENT ILLNESS Binta Flaherty is a 65-year-old female initially referred to me by Dr. Ronny Sanders last week for pauses detected on an extended awning erector. The patient has a 2-1/2-year history of syncope and presyncopal episodes as much as two times in a week. I saw her in the office last week and her last report episode was 13 days ago. She has been having further episodes, not of complete syncope but close enough to scare her; she lives alone and has been quite worried. She was currently contacted after having a very prolonged pause I am told in the 3 to 6 second range and someone got hold of her and told her to come into the ER. She was admitted through the ER yesterday. She has not had any complete syncope and has not had any trauma. She denies any angina. She has a sedentary lifestyle. She has not been diagnosed with sleep apnea, denies any snoring. She had chest pain in the past and had an abnormal stress test. She has some mild chronic lower extremity edema and otherwise denies any acute illnesses. She has not had any recent infections that she is aware of. She has no dysuria, no cough, no sore throat. MEDICATIONS Her medication list is quite extensive, she is on - 1. Carbamazepine 4 mg every 12 hours. 2. Carisoprodol 350 mg t.i.d. and at bedtime. 3. Chromium picolinate 200 mcg daily artery oral capsules 2 b.i.d. 4. Diclofenac 75 daily p.r.n. 5. Folic acid 400 mcg daily. 6. Gabapentin 800 mg daily. 7. Glimepiride 2 mg b.i.d. 8. Furosemide 40 mg daily 11. 9. Levemir insulin with individualized dosing. 10. Levofloxacin 50 mcg daily. 11. Linzess 145 mcg oral capsule once daily on empty stomach, at least 30 minutes before the first meal of the day. 12. Liothyronine 5 mcg tablet daily. 13. She is on Lovenox 60 mg every 12 hours but has not had this now for at least a day. 14. Omeprazole 40 mg daily. 15. Pioglitazone 30 mg daily. 16. Rosuvastatin 40 mg at bedtime. 17. Temazepam 15 mg at bedtime as needed. 18. Trazodone 100 mg daily at bedtime. 19. Vitamin D 50,000 units weekly. ALLERGIES List is extensive includes - AMOXICILLIN. ANTIVERT. ASPIRIN. CIPROFLOXACIN. CODEINE. COUMADIN. EFFEXOR. ERYTHROMYCIN. GLUCOPHAGE. KEFLEX. MOBIC. MORPHINE. PERCOCET. TETRACYCLINE I have asked specifically and she has not had an allergic history to the x-ray contrast. FAMILY HISTORY Positive for coronary artery disease. Her father had two five-way bypasses. Her mother of pancreatic cancer. SOCIAL HISTORY She has occasional wine only. Tobacco she has never smoked. She is . REVIEW OF SYSTEMS Unremarkable. PHYSICAL EXAMINATION GENERAL: Physical exam reveals a morbidly obese, anxious white female, otherwise in no acute distress. VITAL SIGNS: She is mildly bradycardic. Blood pressure has been normal to elevated here in the hospital. HEENT: Exam is unremarkable. NECK: Reveals no obvious JVD. Carotid upstrokes are normal. There are no bruits. CHEST: Clear to auscultation. CARDIAC: Exam shows a normal S1-S2 with mild bradycardia and no murmurs, no gallops. ABDOMEN: Soft. No masses or tenderness. EXTREMITIES: Slight venous insufficiency with trace edema. NEUROLOGICALLY: She is alert and oriented with appropriate mood and affect. SKIN: Shows no rashes or xanthoma. EKG Her EKG demonstrates sinus bradycardia. There are nondiagnostic Q-waves in the lateral leads. Her axis is -28 degrees. LABORATORY DATA Her laboratory work shows a serum sodium of 129, potassium normal at 4.4, creatinine normal at 0.7. Troponin yesterday was less than 0.02. PT/PTT are normal. White count is depressed at 3600, hematocrit is depressed at 31.7, platelet count is mildly depressed at 133. CHEST X-RAY Her chest x-ray shows cardiomegaly with minimal basilar atelectasis. Verbal report from Dr. Sanders is that she has had a recent echo showing preserved left ventricular systolic function. She has she has been wearing a awning erector. She has had multiple pauses in excess of 3 seconds. IMPRESSION 1. Symptomatic bradycardia. She was referred to me last week for pacemaker. I believe that she needs a permanent pacemaker. I have obtained informed consent for dual-chamber pacemaker. First availability from Anesthesia is today at about 10:30 in the morning, so will plan to place it about that time. 2. Mild pancytopenia, etiology unclear. This will be handled by her primary service. 3. Hyponatremia, etiology unclear. This will be handled by her primary service. 4. Morbid obesity. 5. Hypertension. Blood pressure is mildly elevated. She is very anxious right now. The bradycardia may be causing some increased catecholamine state. I am not going to aggressively add anything at this point and I think inserting the pacemaker would be the next best step. PLAN Plan is to insert a dual-chamber pacemaker. She is right handed so will place it in the left chest. I have gone over the risks and benefits, indications and alternatives with the patient. Her risks are elevated due to her morbid obesity but I told her I would be as careful as possible. We will have an IV in her left arm to help with contrast administration to eliminate her vein to make her subclavian stick easier. We will practice usual infection prophylaxis with preop antibiotics as well as nasal Bactroban and Hibiclens bath prior to her procedure. Thank you for asking me to see her. MD WILLIAM Herbert/TAM /7:38 AM /8:00 AM
[2016-06-08] MEDS ORDERED: PT:LINZESS 145 MCG PO SCH (09:00)
[2016-06-08] MEDS ORDERED: NON-FORMULARY DRUG (Linaclotide (Linzess) 145 MCG) PO SCH (09:00)
[2016-06-08] MEDS ORDERED: VANCOMYCIN INJ 1,000 MG in SODIUM CHLOR 0.9% 250 ML INJ 250 ML IV SCH (10:00)
[2016-06-08] MEDS ORDERED: VANCOMYCIN 500 MG VIAL ONE (10:04)
[2016-06-08] MEDS ORDERED: VANCOMYCIN HCL 1000 MG VIAL ONE (10:05)
[2016-06-08] MEDS ORDERED: SODIUM CHLOR 0.9% 250 ML INJ 250 ML ONE (10:05)
[2016-06-08] MEDS ORDERED: LIDOCAINE HCL 2% 50 ML VIAL ONE (10:05)
[2016-06-08] MEDS ORDERED: ACETAMINOPHEN 325 MG TAB PO PRN (12:15)
--- NOTE | 2016-06-08 13:06 | HHI.HP ---
[facility] Service Family Medicine Primary Care Physician Javier Dill MD Admission Diagnosis Diagnoses: (1) Dysrhythmias Diagnosis: Principal (2) FEN/PPX Diagnosis: Principal International Travel<30 Days: No Contact w/Intl Traveler<30days: No Known Affected Area: No History of Present Illness Ms Flaherty is a 65-year-old female with history of multiple syncopal episodes in the past 2 years who is being followed by cardiologists Dr. Sanders and Dr. Bradshaw. The patient has had a Holter monitor placed which has been recording episodes of dysrhythmia. Recently, her monitor has been going off more than usual. Over the past 24 hours she has had "countless" episodes where she has felt dizzy. She does not feel palpitations, however she feels them" in her head." She feels very dizzy during these episodes and must sit down. She called her bicycle subassembler who informed her to come to the emergency room where she will be admitted with cardiology consultation for a pacemaker placement during this hospitalization. Otherwise, the patient is doing fine and has no complaints. Denies chest pain, nausea, vomiting, shortness of breath. No dysuria. She received her pacemaker this am and feels improved so far. She is concerned about her possibility of bleeding or clotting as she has had so many problems in the past. She is back on her seizure meds and other meds now but was concerned about missing some doses when she was NPO. Review of Systems Other Constitutional: DENIES: Fever, Chills Eyes: DENIES: Blurred vision, Diplopia Respiratory: DENIES: Apneas, Cough Cardiovascular: COMPLAINS OF: Syncope, DENIES: Chest pain, Palpitations Gastrointestinal: DENIES: Abdominal pain, Black stools, Bloody stools, Constipation, Diarrhea, Nausea, Vomiting Genitourinary: DENIES: Urinary frequency, Urinary incontinence, Dysuria Musculoskeletal: COMPLAINS OF: Joint pain, Muscle aches Integumentary: DENIES: Pruritus, Rash Neurologic: DENIES: Abnormal gait, Headache Psychiatric: DENIES: Anxiety, Confusion Past Family Social History Past Medical History Benign Meningioma 1999 with recurrance 2001 (13 mo later) UTI w/hospitalization Oct 2011 Low back pain Arthritis Edema Constipation Seizures Hypothyroid Hyperlipidemia Diabetes- takes 20 units of Levemir nightly with lispro sliding scale. Insomnia retroperitoneal bleed in past and history of clots Past Surgical History TRINIDAD & BSO [address] 21 [address] Frank Wilder D&C x 4 before that 70-71 T&A age 18 Laparoscopy age 39 R Knee replaced 2004 Dr Bermudez Allergies: Coded Allergies: Adhesives (Verified Allergy, Severe, skin pealing, 06/07/16) Aspirin (Verified Allergy, Severe, HIVES, 06/07/16) Clonidine (Verified Allergy, Severe, Psychosis. Leg edema, , 06/07/16) "MAKES ME FEEL LOOPY" Compazine (Verified Allergy, Severe, b/p drop, 06/07/16) Coumadin (Verified Allergy, Severe, PT DOES NOT KNOW REACTION, 06/07/16) Erythromycin (Verified Allergy, Severe, 06/07/16) Keflex (Verified Allergy, Severe, Nausea/Vomiting, 06/07/16) Mobic (Verified Allergy, Severe, 06/07/16) PT STATES SHE CAN'T TAKE NSAIDS Morphine (Verified Allergy, Severe, Hallucinations, 06/07/16) Nonsteroidal Anti-Inflammatory Agts (Verified Allergy, Severe, 06/07/16) Percocet (Verified Allergy, Severe, Hallucinations, 06/07/16) Tetracycline (Verified Allergy, Severe, UNKNOWN REACTION PER PT, 06/07/16) Theophylline (Verified Allergy, Severe, Nausea/Vomiting, 06/07/16) Amoxicillin (Verified Allergy, Intermediate, ITCHING, 06/07/16) Formaldehyde (Verified Allergy, Unknown, not specifically related., ) Antivert (Verified Adverse Reaction, Severe, Nausea/Vomiting,dizzy, ) Cipro (Verified Adverse Reaction, Severe, Nausea/Vomiting, 06/07/16) Effexor (Verified Adverse Reaction, Severe, All the SE, 06/07/16) Glucophage (Verified Adverse Reaction, Severe, Got hypoglycemic and passed out x 2. Dr MAULIK Ridley , 06/07/16) advised her never to take again. Lipitor (Verified Adverse Reaction, Severe, numbness of both legs. , 06/07) Promethazine (Verified Adverse Reaction, Severe, low blood pressure, ) by history according to patient. Uncoded Allergies: NICKEL (Allergy, Severe, RASH, 08/31/13) swelling Ice (Adverse Reaction, Severe, Severe muscle spasms and cramps, 08/31/13) Family History CAD with 2 5way bypasses before DM 2 in real mother Cancers: Fathers great aunt ovarian cancer. Mother of pancreatic cancer . Social History Marrital Status: x 3. 3 times. Lost 3rd one over a yr ago. Living Situation: mobile home. Lives alone. Education: BA in [employer] and Social Work history: Currently disabled and just got her disability approved. Tobacco: 2 mo of smoking in teens. Alcohol: Never Illicit drug use: none Physical Exam Vital Signs Vital Signs Date Time Temp Pulse Resp B/P Pulse Ox O2 Delivery O2 Flow Rate FiO2 06/08/16 07:00 97.4 56 18 165/69 97 06/08/16 06:22 56 06/08/16 05:53 150/67 06/08/16 05:10 60 06/08/16 04:59 97.4 62 16 181/70 94 06/08/16 03:28 98 06/07/16 23:28 57 21 177/76 97 Room Air 06/07/16 22:12 98.0 54 20 211/88 98 Room Air 06/07/16 19:29 98.0 51 16 174/74 95 Room Air 06/07/16 19:29 94 Room Air 06/07/16 18:08 18 06/07/16 17:33 97.3 61 20 221/92 95 Room Air Physical Exam GENERAL: This is a well-nourished, well-developed patient, in no apparent distress. has arm bandaged on left SKIN: No rashes. Lower left leg ecchymoses. Cool and dry. HEAD: Atraumatic. Normocephalic. EYES: Pupils equal round and reactive. Extraocular motions intact. No scleral icterus. No injection or drainage. ENT: Nose without bleeding, purulent drainage or septal hematoma. Throat without erythema, tonsillar hypertrophy or exudate. Uvula midline. Airway patent. NECK: Trachea midline. No JVD or lymphadenopathy. Supple, nontender, no meningeal signs. CARDIOVASCULAR: Regular rate and rhythm without murmurs, gallops, or rubs. RESPIRATORY: Clear to auscultation. Breath sounds equal bilaterally. No wheezes , rales, or rhonchi. GASTROINTESTINAL: Abdomen soft, non-tender, nondistended. No hepato-splenomegaly , or palpable masses. No guarding. MUSCULOSKELETAL: Extremities without clubbing, cyanosis, or edema. No joint tenderness, effusion, or edema noted. No calf tenderness. Negative Homans sign bilaterally. NEUROLOGICAL: Awake and alert. Cranial nerves II through XII intact. Motor and sensory grossly within normal limits. Five out of 5 muscle strength in all muscle groups. Normal speech. Laboratory Laboratory Tests Test 06/07/16 06/08/16 18:30 04:54 White Blood Count 3.9 3.6 Red Blood Count 3.61 3.52 Hemoglobin 11.1 11.1 Hematocrit 32.8 31.7 Mean Corpuscular Volume 90.9 90.2 Mean Corpuscular Hemoglobin 30.8 31.4 Mean Corpuscular Hemoglobin 33.8 34.8 Concent Red Cell Distribution Width 13.5 13.9 Platelet Count 146 133 Mean Platelet Volume 7.4 6.9 Neutrophils (%) (Auto) 36.4 49.0 Lymphocytes (%) (Auto) 48.1 36.6 Monocytes (%) (Auto) 9.2 8.6 Eosinophils (%) (Auto) 5.5 5.2 Basophils (%) (Auto) 0.8 0.6 Neutrophils # (Auto) 1.4 1.8 Lymphocytes # (Auto) 1.9 1.3 Monocytes # (Auto) 0.4 0.3 Eosinophils # (Auto) 0.2 0.2 Basophils # (Auto) 0.0 0.0 CBC Comment DIFF FINAL DIFF FINAL Differential Comment Prothrombin Time 10.4 Prothromb Time International 0.9 Ratio Activated Partial 28.3 Thromboplast Time Sodium Level 128 129 Potassium Level 4.5 4.4 Chloride Level 92 93 Carbon Dioxide Level 27.5 27.7 Anion Gap 9 8 Blood Urea Nitrogen 15 12 Creatinine 0.84 0.70 Estimat Glomerular Filtration 68 84 Rate Random Glucose 103 132 Calcium Level 8.4 8.5 Magnesium Level 2.0 Total Bilirubin 0.3 0.4 Aspartate Amino Transf 22 15 (AST/SGOT) Alanine Aminotransferase 25 22 (ALT/SGPT) Alkaline Phosphatase 84 78 Total Creatine Kinase 229 Creatine Kinase MB 5.9 Creatine Kinase MB % 2.6 Troponin I LESS THAN 0.02 Total Protein 7.2 6.6 Albumin 3.9 3.9 Result Diagram: 06/08/16 0454 06/08/16 0454 Imaging Last Impressions Chest X-Ray 06/07/167 Signed Impressions: Service Date/Time: Tuesday, June 07, 2016 18:41 - CONCLUSION: 1. Cardiomegaly with minimal basilar atelectasis. Salvatore Oleary MD Assessment and Plan Assessment and Plan 65-year-old female with history of multiple syncopal episodes presents after contacting her bicycle subassembler office with episodes of dizziness and in which her Holter monitor showed episodes of long pauses between beats. Patient was admitted for cardiology consultation for pacemaker implantation. Problem List: (1) Dysrhythmias Status: Acute Plan: Patient has known dysrhythmia which is caused syncopal episodes. She presents with dizziness from this. That is post Holter monitor implantation. Patient will be admitted for pacemaker implantation. Cardiology consulted, Dr. Bradshaw Placed patient on telemetry she had her pacer placed this am (2) FEN/PPX Status: Acute Plan: Fluids: Normal saline 100 mils per hour while the patient is nothing by mouth, can heplock as she is taking po now Electrolytes: Monitor and replace when necessary Nutrition: Heart healthy diet. Nothing by mouth after midnight for expected procedure Prophylaxis: Bilateral SCDs Chronic medical problems: * Low back pain- continue Soma 350 mg 3 times a day when necessary, Lortab every 4 hours when necessary * Arthritis- continue pain medications as above * Edema- continue Lasix 40 mg daily * Constipation- continue when necessary stool softeners/laxatives * Seizures- continue carbamazepine 200 mg by mouth 3 times a day * Hypothyroid- continue Synthroid 50 g by mouth daily * Hyperlipidemia- continue Crestor * Diabetes- normally patient takes 20 units of Levemir nightly with lispro sliding scale; will decrease to 5 units Levemir as the patient will be nothing by mouth at midnight. Cover with sliding scale. Holding oral diabetic medications * Insomnia- continue trazodone 250 mg by mouth at bedtime, temazepam 15 mg by mouth at bedtime * because of bleeding history and clotting, will consult Hematology Physician Certification 2 Midnight Certification Type: Admission for Inpatient Services Order for Inpatient Services The services are ordered in accordance with Medicare regulations or non- Medicare payer requirements, as applicable. In the case of services not specified as inpatient-only, they are appropriately provided as inpatient services in accordance with the 2-midnight benchmark. Estimated LOS (days): 3 3 days is the estimated time the patient will need to remain in the hospital, assuming treatment plan goals are met and no additional complications. Post-Hospital Plan: Home Problem Qualifiers (1) Dysrhythmias: Qualified Code: I49.9 - Cardiac arrhythmia, unspecified cardiac arrhythmia type Ceci Mckinnon MD Jun 08, 2016 13:06
--- NOTE | 2016-06-08 13:16 | RADRPT ---
EXAM DATE/TIME: 06/08/2016 12:31 [place] COMPARISON: CHEST SINGLE AP, June 07, 2016, 18:41. INDICATIONS : Short of breath, evaluate for pneumothorax post pacemaker insertion MEDICAL HISTORY : Diabetes mellitus type II. Hiatal hernia. Hypertension. Asthma SURGICAL HISTORY : Cholecystectomy. Pacemaker. ENCOUNTER: Subsequent ACUITY: 2 days PAIN SCORE: 10/10 LOCATION: Bilateral chest FINDINGS: Pacemaker is present on the left without pneumothorax. Lungs clear, heart and pulmonary vascularity normal. Portion of bony skeleton visualized unremarkable. CONCLUSION: Pacer in good position without pneumothorax. Dony Hinojosa MD FACR on June 08, 2016 at 13:10 Board Certified Radiologist. This report was verified electronically.
[2016-06-08] MEDS ORDERED: MIDAZOLAM HCL 2 MG/2 ML VIAL ONE (13:35)
[2016-06-08] MEDS: ACETAMINOPHEN/HYDROcodone 325 MG/5 MG TAB PO PRN (17:36)
[2016-06-08] MEDS ORDERED: NON-FORMULARY DRUG (Omeprazole 40 MG) PO SCH (21:00)
[2016-06-08] MEDS ORDERED: NON-FORMULARY DRUG (Rosuvastatin (Crestor) 40 MG) PO SCH (21:00)
[2016-06-08] MEDS: ATORVASTATIN 80 MG TAB PO SCH (21:00)
[2016-06-08] MEDS: INSULIN DETEMIR 100 UNITS/ML VIAL SQ SCH (21:25)
[2016-06-08] MEDS: LISINOPRIL 20 MG TAB PO SCH (21:27)
[2016-06-08] MEDS: PANTOPRAZOLE SOD 40 MG DELAYED RELEASE TAB PO SCH (21:28)
[2016-06-08] MEDS: ACETAMINOPHEN/HYDROcodone 325 MG/10 MG TAB PO PRN (22:03)
[2016-06-08] MEDS: TEMAZEPAM 15 MG CAP PO SCH (22:45)
[2016-06-08] MEDS: traZODone HCL 100 MG TAB PO SCH (22:46)
[2016-06-09] VITALS (29 sets, daily range): BP systolic 112–190; BP diastolic 41–70; PULSE 58–70; RESP 18; TEMP 97.6–98.3; O2SAT 92–99
[2016-06-09] MEDS: INSULIN NovoLIN REGULAR SUPPLEMENTAL SCALE SQ SCH ×4 (05:52→21:28)
[2016-06-09] MEDS: LEVOTHYROXINE SODIUM 50 MCG TAB PO SCH (06:00)
[2016-06-09 06:03] LABS: AUTOMATED NEUTROPHIL # 2.1 TH/MM3 (1.8-7.7); BASOPHIL % 0.8 % (0.0-2.0); EOSINOPHIL # 0.2 TH/MM3 (0-0.4); EOSINOPHIL % 3.9 % (0.0-4.0); HEMATOCRIT 31.8 % (35.0-46.0); HEMO FLAGS DIFF FINAL; LYMPH % 35.8 % (9.0-44.0); LYMPHOCYTE # 1.5 TH/MM3 (1.0-4.8); MEAN CELL VOLUME 90.8 FL (80.0-100.0); MEAN CORPUSCULAR HEMOGLOBIN 30.6 PG (27.0-34.0); MEAN CORPUSCULAR HGB CONC 33.7 % (32.0-36.0); MONO % 8.6 % (0.0-8.0); NEUT % 50.9 % (16.0-70.0); PLATELET COUNT 118 TH/MM3 (150-450); RED BLOOD COUNT 3.51 MIL/MM3 (4.00-5.30); RED CELL DISTRIBUTION WIDTH 13.4 % (11.6-17.2); WHITE BLOOD COUNT 4.2 TH/MM3 (4.0-11.0)
[2016-06-09 06:25] LABS: POTASSIUM 4.2 MEQ/L (3.5-5.1)
[2016-06-09] MEDS: FUROSEMIDE 40 MG TAB PO SCH (08:01)
[2016-06-09] MEDS: GABAPENTIN 400 MG CAP PO SCH ×3 (08:01→17:09)
[2016-06-09] MEDS: carBAMazepine 200 MG TAB PO SCH ×3 (08:01→17:10)
[2016-06-09] MEDS: LIPASE/PROTEASE/AMYLASE (24,000/76,000/120,000) CAP PO SCH ×2 (08:01→21:28)
[2016-06-09] MEDS: hydrALAZINE HCL 20 MG/ML VIAL IV PRN (08:02)
[2016-06-09] MEDS: SODIUM CHLORIDE 0.9% FLUSH 10 ML FLUSH IV FLUSH SCH ×2 (08:02→21:00)
--- NOTE | 2016-06-09 11:17 | HHI.FPPN ---
Subjective Remarks Ms Flaherty feels much better overall after her pacemaker placement. She is able to get up and walk in the zayas and was shown her new wonderfully regular heart rhythm. She still feels some "dizziness" on exertion but does not have any presyncopal episodes or syncope since her pacer was placed. She is very anxious as she had so many problems before she came in with such frequent 5 second or more pauses. She had many episodes of syncope and problems prior to this. She was seen by PT today who felt she did not need rehab or PT at home as she has good strength and balance. She was reported to be orthostatic so she is getting a bolus of fluid and can be reassessed. Had a discussion with her about her heart rhythm and the problems these pauses were causing in blood flow to her brain and muscles. Explained that her recent weakness and "spells" should all be improved now that her lowest heart rate was about 60 on the monitor. Objective Vitals Vital Signs Date Time Temp Pulse Resp B/P Pulse Ox O2 Delivery O2 Flow Rate FiO2 06/09/16 10:24 60 06/09/16 10:08 60 06/09/16 09:30 65 06/09/16 08:35 146/66 06/09/16 08:00 60 06/09/16 07:45 97.8 60 18 190/59 99 06/09/16 07:00 59 06/09/16 06:00 58 06/09/16 05:00 60 06/09/16 04:00 60 06/09/16 04:00 97.8 60 18 163/65 96 06/09/16 03:00 60 06/09/16 02:00 58 06/09/16 01:00 58 06/09/16 00:00 97.9 59 18 140/68 96 06/09/16 00:00 59 06/08/16 23:00 58 06/08/16 22:00 60 06/08/16 21:00 61 06/08/16 20:00 59 06/08/16 20:00 97.9 60 18 141/72 96 06/08/16 19:00 58 06/08/16 18:21 61 06/08/16 17:48 59 06/08/16 17:27 138/62 06/08/16 16:07 60 06/08/16 15:34 97.8 60 17 152/63 95 06/08/16 15:00 61 06/08/16 14:41 63 06/08/16 13:00 58 06/08/16 12:30 60 06/08/16 12:30 61 20 156/77 99 I/O 06/08/16 06/08/16 06/08/16 06/09/16 06/09/16 06/09/16 07:00 15:00 23:00 07:00 15:00 23:00 Intake Total 533 ml 680 ml 480 ml Output Total 1750 ml Balance 533 ml -1070 ml 480 ml Intake Oral 0 ml 480 ml 480 ml IV Total 533 ml 200 ml Output Urine Total 1750 ml # Voids 2 2 # Bowel Movements 0 Result Diagram: 06/09/16 0435 06/09/16434 Objective Remarks GENERAL: This is a well-nourished, well-developed patient, in no apparent distress except anxiety over all her recent problems. SKIN: No rashes. Lower left leg ecchymoses. Cool and dry. HEAD: Atraumatic. Normocephalic. EYES: Pupils equal round and reactive. Extraocular motions intact. No scleral icterus. No injection or drainage. ENT: Nose without bleeding, purulent drainage or septal hematoma. Airway patent. NECK: Trachea midline. No JVD or lymphadenopathy. Supple, nontender, no meningeal signs. CARDIOVASCULAR: Regular rate and rhythm without murmurs, gallops, or rubs. RESPIRATORY: Clear to auscultation. Breath sounds equal bilaterally. No wheezes , rales, or rhonchi. GASTROINTESTINAL: Abdomen soft, non-tender, nondistended. No hepato-splenomegaly , or palpable masses. No guarding. MUSCULOSKELETAL: Extremities without clubbing, cyanosis, or edema. No joint tenderness, effusion, or edema noted. No calf tenderness. Negative Homans sign bilaterally. NEUROLOGICAL: Awake and alert. Cranial nerves II through XII intact. Motor and sensory grossly within normal limits. Five out of 5 muscle strength in all muscle groups. Normal speech. 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 Patient was admitted for cardiology consultation for pacemaker implantation. Problem List: (1) Dysrhythmias Status: Acute Plan: Patient has known dysrhythmia which is caused syncopal episodes. She presented with dizziness from this as shown by her Holter monitor. She was admitted for pacemaker implantation and is improved with her new pacer Cardiology consulted, Dr. Bradshaw she had her pacer placed this yesterday am and was cleared by Cardiology to go home. She was also cleared by PT to go home and does not need rehab, however, she was reported to be orthostatic and will receive a bolus of fluid and be re assessed. (2) FEN/PPX Status: Acute Plan: Fluids: getting bolus today. she was taking po yesterday but her BUN is elevated compared to before. Electrolytes: Monitor and replace when necessary, her sodium is slightly low but improving since admission. she probably had some CHF with all her bradycardia/pauses Nutrition: Heart healthy diet. Prophylaxis: Bilateral SCDs. will start back on her usual 60 mg BID Lovenox tomorrow Chronic medical problems: * Low back pain- continue Soma 350 mg 3 times a day when necessary, Lortab every 4 hours when necessary * Arthritis- continue pain medications as above * Edema- continue Lasix 40 mg daily, she may be able cut down on this as her bradycardia and pauses are gone now * Constipation- continue when necessary stool softeners/laxatives * Seizures- continue carbamazepine 200 mg by mouth 3 times a day * Hypothyroid- continue Synthroid 50 g by mouth daily * Hyperlipidemia- continue Crestor * Diabetes- normally patient takes 20 units of Levemir nightly with lispro sliding scale; will decrease to 5 units Levemir as the patient was nothing by mouth at midnight. Cover with sliding scale. Holding oral diabetic medications * Insomnia- continue trazodone 250 mg by mouth at bedtime, temazepam 15 mg by mouth at bedtime * because of bleeding history and clotting, consulted Hematology, spoke to them and will follow their instructions (3) Clotting disorder Status: Chronic Plan: Her anticoagulation was held with her procedure. On discussion with Hematology, the recommendation is to go back to her Lovenox 60 mg BID that she has been taking for about 4 years, starting tomorrow. She will follow up with Hematology as she was scheduled to be seen 4 - 6 months after her January 2016 appointment. Problem Qualifiers (1) Dysrhythmias: Qualified Code: I49.9 - Cardiac arrhythmia, unspecified cardiac arrhythmia type Ceci Mckinnon MD Jun 09, 2016 11:17
[2016-06-09] MEDS ORDERED: ENOX60IN SQ (11:39)
[2016-06-09] MEDS ORDERED: ONDANSETRON HCL 4 MG/2 ML VIAL IV PUSH PRN (12:00)
[2016-06-09] MEDS ORDERED: SODIUM CHLOR 0.9% 1000 ML INJ 1,000 ML IV ONE (12:15)
[2016-06-09] MEDS: ACETAMINOPHEN/HYDROcodone 325 MG/10 MG TAB PO PRN ×2 (14:54→21:33)
--- NOTE | 2016-06-09 15:49 | HHI.FF ---
Face to Face Verification Diagnosis: (1) Syncopal episodes Physical Therapy Order: Evaluate and Treat, Improve ambulation, Strength and gait training Home Health Nursing Order: Medical education Signs/symptoms of disease process Nursing assessment with vital signs I have seen patient Yanet Flaherty on 06/09/16. My clinical findings support the need for the requested home health care services because: Ltd mobility - disease progression High risk of falls I certify that my clinical findings support that this patient is homebound because: Post-op weakness Unsteady gait/balance Brett Porter MD R3 Jun 09, 2016 15:49
[2016-06-09] MEDS: ATORVASTATIN 80 MG TAB PO SCH (21:00)
[2016-06-09] MEDS: LISINOPRIL 20 MG TAB PO SCH (21:28)
[2016-06-09] MEDS: PANTOPRAZOLE SOD 40 MG DELAYED RELEASE TAB PO SCH (21:28)
[2016-06-09] MEDS: INSULIN DETEMIR 100 UNITS/ML VIAL SQ SCH (21:29)
[2016-06-09] MEDS: traZODone HCL 100 MG TAB PO SCH (22:11)
[2016-06-09] MEDS: TEMAZEPAM 15 MG CAP PO SCH (22:11)
[2016-06-09] MEDS: CARISOPRODOL 350 MG TAB PO PRN (22:11)
[2016-06-10] VITALS (11 sets, daily range): BP systolic 142–157; BP diastolic 60–71; PULSE 58–60; RESP 18; TEMP 97.6–98; O2SAT 96
[2016-06-10] MEDS: LEVOTHYROXINE SODIUM 50 MCG TAB PO SCH (06:33)
[2016-06-10] MEDS: INSULIN NovoLIN REGULAR SUPPLEMENTAL SCALE SQ SCH ×2 (06:51→11:00)
[2016-06-10] MEDS: SODIUM CHLORIDE 0.9% FLUSH 10 ML FLUSH IV FLUSH SCH (09:00)
[2016-06-10] MEDS ORDERED: ENOXAPARIN SODIUM 40 MG/0.4 ML SYRINGE SQ SCH (09:00)
[2016-06-10] MEDS: LIPASE/PROTEASE/AMYLASE (24,000/76,000/120,000) CAP PO SCH (09:07)
[2016-06-10] MEDS: GABAPENTIN 400 MG CAP PO SCH (09:07)
[2016-06-10] MEDS: carBAMazepine 200 MG TAB PO SCH (09:07)
[2016-06-10] MEDS: FUROSEMIDE 40 MG TAB PO SCH (09:07)
--- NOTE | 2016-06-10 10:24 | HHI.FPPN ---
Subjective Remarks Patient seen this morning. No acute events overnight. Vitals this morning are essentially WNL. Ms. Flaherty feels ready for DC home today. Has been ambulating without assistance. No dizziness, CP, or SOB. Tolerating PO diet. Appetite good. Trying to drink >64 oz water per day. She has no complaints today. Denies any F/C. (Brett Porter MD R3) Objective Vitals Vital Signs Date Time Temp Pulse Resp B/P Pulse Ox O2 Delivery O2 Flow Rate FiO2 06/10/16 06:00 60 06/10/16 05:00 59 06/10/16 05:00 97.6 60 18 157/71 96 06/10/16 04:00 59 06/10/16 03:00 59 06/10/16 02:00 60 06/10/16 01:00 60 06/10/16 00:00 97.9 60 18 147/65 96 06/10/16 00:00 58 06/09/16 23:00 62 06/09/16 22:00 68 06/09/16 21:00 58 06/09/16 20:00 61 06/09/16 20:00 97.6 64 18 120/67 96 06/09/16 19:00 58 06/09/16 18:08 60 06/09/16 17:23 59 06/09/16 16:28 61 06/09/16 16:27 59 06/09/16 15:45 138/64 136/66 136/69 06/09/16 15:45 98.0 64 18 115/41 97 06/09/16 14:11 70 06/09/16 13:00 64 06/09/16 12:05 60 06/09/16 11:15 98.3 68 18 112/70 92 06/09/16 11:00 59 06/09/16 10:24 60 I/O 06/09/16 06/09/16 06/09/16 06/10/16 06/10/16 06/10/16 07:00 15:00 23:00 07:00 15:00 23:00 Intake Total 480 ml 1720 ml 360 ml Balance 480 ml 1720 ml 360 ml Intake Oral 480 ml 720 ml 360 ml IV Total 1000 ml # Voids 2 2 2 (Brett Porter MD R3) Result Diagram: 06/09/16 0435 06/09/16 043 Objective Remarks GENERAL: Well-appearing, well-developed patient. Sitting up in bed this morning. In NAD. SKIN: No rashes. Lower left leg ecchymoses. Cool and dry. Dressing over left chest at site of pacemaker placement present. Wound appears c/d/i. NECK: Trachea midline. No JVD or lymphadenopathy. Supple, nontender, no meningeal signs. CARDIOVASCULAR: Regular rate and rhythm without murmurs, gallops, or rubs. RESPIRATORY: Clear to auscultation. Breath sounds equal bilaterally. No wheezes , rales, or rhonchi. GASTROINTESTINAL: Abdomen soft, non-tender, nondistended. No hepato-splenomegaly , or palpable masses. No guarding. MUSCULOSKELETAL: Extremities without clubbing, cyanosis, or edema. No joint tenderness, effusion, or edema noted. No calf tenderness. Negative Homans sign bilaterally. NEUROLOGICAL: Awake and alert. Cranial nerves II through XII intact. Motor and sensory grossly within normal limits. Five out of 5 muscle strength in all muscle groups. Normal speech. 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 Patient was admitted for cardiology consultation for pacemaker implantation. Now s/p placement of PPM on 06/08. Discharge Planning Discharge home with HH today. Seen and discussed with Dr. Mckinnon (Brett Porter MD R3) Attending Attestation Patient seen and examined. Case reviewed and discussed with the resident team. Agree with plan of care as discussed with me and documented in the resident note. she is doing very well this am. she asked first thing about going home and wanted her daughter and her to see on the monitor how well her heart rate was. She delighted in it's regularity. Can consider decreasing her meds over the next days to weeks as she should be much better overall with her cardiac function. she has a follow up with Cardiology next week (Ceci Mckinnon MD ) Problem List: (1) Dysrhythmias Status: Acute Plan: Patient has known dysrhythmia which is caused syncopal episodes. She presented with dizziness from this as shown by her Holter monitor. She was admitted for pacemaker implantation and is improved with her new pacer Cardiology consulted, Dr. Bradshaw 06/08. -cleared for DC by cards -cleared by PT yesterday with suggestion of possible HH with PT. Did have orthostasis yesterday, which resolved with 1L fluid bolus. (2) Clotting disorder Status: Chronic Plan: Her anticoagulation was held with her procedure. On discussion with Hematology, the recommendation is to go back to her Lovenox 60 mg BID that she has been taking for about 4 years, starting today. She will follow up with Hematology as she was scheduled to be seen 4 - 6 months after her January 2016 appointment. (3) FEN/PPX Status: Acute Plan: Fluids: SLIV. Received fluid bolus yesterday. Electrolytes: Monitor and replace when necessary, her sodium is slightly low but improving since admission. she probably had some CHF with all her bradycardia/pauses Nutrition: Heart healthy diet. Prophylaxis: Bilateral SCDs. will start back on her usual 60 mg BID Lovenox today Chronic medical problems: * Low back pain- continue Soma 350 mg 3 times a day when necessary, Lortab every 4 hours when necessary * Arthritis- continue pain medications as above * Edema- continue Lasix 40 mg daily, she may be able cut down on this as her bradycardia and pauses are gone now. Defer to cardiology. * Constipation- continue when necessary stool softeners/laxatives * Seizures- continue carbamazepine 200 mg by mouth 3 times a day * Hypothyroid- continue Synthroid 50 g by mouth daily * Hyperlipidemia- continue Crestor * Diabetes- 2u ss requirement over the past 24 hours. On 5u HS levemir here in the hospital. Resume home regimen on discharge. * Insomnia- continue trazodone 250 mg by mouth at bedtime, temazepam 15 mg by mouth at bedtime * because of bleeding history and clotting, consulted Hematology, spoke to them and will follow their instructions (Brett Porter MD R3) Problem Qualifiers (1) Dysrhythmias: Qualified Code: I49.9 - Cardiac arrhythmia, unspecified cardiac arrhythmia type Brett Porter MD R3 Jun 10, 2016 10:24 Ceci Mckinnon MD Jun 10, 2016 14:33
--- NOTE | 2016-06-10 10:29 | MP ---
cc: GREYSON KRISHNAMURTHY MD DATE OF SURGERY 06/08/2016 PROCEDURE PERFORMED Permanent pacemaker implant PREOPERATIVE DIAGNOSIS Symptomatic bradycardia POSTOPERATIVE DIAGNOSIS Symptomatic bradycardia PROCEDURE Insertion of dual chamber rate responsive MRI safe pacemaker. DESCRIPTION OF PROCEDURE The patient was brought to the cardiac geochemical laboratory technician in a fasting state. She had a slew of drug allergies. She was not allergic to vancomycin so she received one gram of vancomycin preoperatively. Sedation was provided by Anesthesia. She was prepped and draped in a sterile fashion. Using 1% lidocaine for local anesthesia, an incision was made parallel to and below the left clavicle. Using blunt and sharp dissection with Bovie for hemostasis, a pocket was fashioned above the pectoralis muscle. Next, the left subclavian vein was then punctured twice a utilizing fluoroscopy with two guidewires placed into the superior vena cava. Over the first guidewire, a 7-Afghan peel-away sheath was introduced. Through this, a ventricle lead was inserted and screwed into the right ventricle at the very lower portion of the septum with excellent sensing and pacing thresholds. The peel-away sheath was removed over the second guidewire and a 7-Afghan peel-away sheath was introduced. Through this, the atrial lead was inserted and screwed into the right atrial appendage with good sensing and pacing thresholds. Both leads were then secured to the underlying fascia using three 2-0 silk sutures for each Silastic cuff and making sure the adequate slack was on each lead. The leads were then connected to the pacemaker generator which was then secured to the floor of the pocket with the leads coiled behind it and it was secured to the floor of the pocket with a single 2-0 silk suture. The wound was then irrigated with antibiotic solution and then closed in layers using several interrupted 2-0 Vicryl sutures for the deep fascial layers, multiple 3-0 Vicryl subcutaneous stitches and then a running 4-0 Monocryl stitch and then Steri-Strips and a 4x4 dressing. Estimated blood loss was about 30 cc. There were no complications. The patient tolerated the procedure well. She is being moved back to the DOC unit while this is being dictated. The pacemaker is a Medtronic model A2DR01, one model number Advisa DRMRI, serial number [id number]. The atrial lead is a Medtronic CapSureFix Novus model 4076, length 45 cm, serial number [id number] with a P-wave of 5.4 mV, threshold of 1.3 volts, impedance of 785 ohms. The ventricular lead is a Medtronic model 22936, length 52-cm serial number [id number] with an R-wave of 10.8 mV, threshold of a 0.9 volts and an impedance of 1218 ohms. The pacemaker is programmed in an MVP mode at a rate of 60-130 with a paced AV delay of 180 and a sensed AV delay of 150 with 3.5 volts output for atrial and ventricular leads. Chest x-ray pending. MD WILLIAM Herbert/PJ /12:23 PM /10:17 AM
[2016-06-10] MEDS: ACETAMINOPHEN/HYDROcodone 325 MG/5 MG TAB PO PRN (12:16)
--- NOTE | 2016-06-10 20:41 | EKG ---
Date Performed: 06/07/2016 Time Performed: 19:23:23 PTAGE: 65 years EKG: SINUS BRADYCARDIA WITH FIRST DEGREE AV BLOCK POSSIBLE LATERAL MYOCARDIAL INFARCTION ABNORMA L ECG PREVIOUS TRACING : 04/27/2016 17.32 Compared to prior tracing no significant change DOCTOR: Ben Aguayo Interpretating Date/Time 06/10/2016 20:39:33
--- NOTE | 2016-06-12 16:37 | HHI.FPPN ---
Addendum to progress note ADDENDUM Reason for addendum: Additonal documentation Additional information Additional documentation from 06/09/2016 - Discussed discharge needs with PT in the AM. Physical therapist recommended patient could go home without HH PT, however, there was concern over significant orthostasis. Apparently blood pressure on standing dropped to 81/49 when checked by physical therapy. Patient also endorsed dizziness with standing at that time. A 1L fluid bolus was ordered. Orthostatic vitals were re-checked at 1545 and were WNL. I discussed plan to discharge with nursing, at which point I was informed patient c/o significant dizziness and concern for potential fall at home. I shared this concern with attending physician (Dr. Mckinnon) and decision was made to keep patient an additional night for observation, push PO fluids, and reassess in the AM. Brett Porter MD R3 Jun 12, 2016 16:36
[2016-06-19] MEDS ORDERED: CARI350T20 PO (11:21)
[2016-06-19] MEDS ORDERED: TRAZ100T4 PO (11:22)
[2016-06-19] MEDS ORDERED: HYDR-3535 PO (15:19)
[2016-06-19] MEDS ORDERED: ATEN25TA PO (15:28)
[2016-07-03] MEDS ORDERED: HYDR-3535 PO (15:55)
[2016-07-20] MEDS ORDERED: CARI350T20 PO (19:08)
[2016-07-23] MEDS ORDERED: GABA400C5 PO (07:19)
[2016-08-04] MEDS ORDERED: NOVOLOGP2 SQ (11:38)
[2016-08-07] MEDS ORDERED: HYDR-3535 PO (15:30)
--- NOTE | 2016-08-13 11:56 | HHI.DS ---
Discharge Summary Admission Date Jun 07, 2016 at 20:24 Discharge Date: Jun 12, 2016 Admitting Diagnosis (1) Dysrhythmias Diagnosis: Principal Plan: Patient has known dysrhythmia which is caused syncopal episodes. She presented with dizziness from this as shown by her Holter monitor. She was admitted for pacemaker implantation and is improved with her new pacer Cardiology consulted, Dr. Bradshaw 06/08. -cleared for DC by cards -cleared by PT yesterday with suggestion of possible HH with PT. Did have orthostasis yesterday, which resolved with 1L fluid bolus. (2) Clotting disorder Diagnosis: Secondary Plan: Her anticoagulation was held with her procedure. On discussion with Hematology, the recommendation is to go back to her Lovenox 60 mg BID that she has been taking for about 4 years, starting today. She will follow up with Hematology as she was scheduled to be seen 4 - 6 months after her January 2016 appointment. (3) FEN/PPX Diagnosis: Secondary Plan: Fluids: SLIV. Received fluid bolus yesterday. Electrolytes: Monitor and replace when necessary, her sodium is slightly low but improving since admission. she probably had some CHF with all her bradycardia/pauses Nutrition: Heart healthy diet. Prophylaxis: Bilateral SCDs. will start back on her usual 60 mg BID Lovenox today Chronic medical problems: * Low back pain- continue Soma 350 mg 3 times a day when necessary, Lortab every 4 hours when necessary * Arthritis- continue pain medications as above * Edema- continue Lasix 40 mg daily, she may be able cut down on this as her bradycardia and pauses are gone now. Defer to cardiology. * Constipation- continue when necessary stool softeners/laxatives * Seizures- continue carbamazepine 200 mg by mouth 3 times a day * Hypothyroid- continue Synthroid 50 g by mouth daily * Hyperlipidemia- continue Crestor * Diabetes- 2u ss requirement over the past 24 hours. On 5u HS levemir here in the hospital. Resume home regimen on discharge. * Insomnia- continue trazodone 250 mg by mouth at bedtime, temazepam 15 mg by mouth at bedtime * because of bleeding history and clotting, consulted Hematology, spoke to them and will follow their instructions Brief History Ms Flaherty is a 65-year-old female with history of multiple syncopal episodes in the past 2 years who is being followed by cardiologists Dr. Sanders and Dr. Bradshaw. The patient has had a Holter monitor placed which has been recording episodes of dysrhythmia. Recently, her monitor has been going off more than usual. Over the past 24 hours she has had "countless" episodes where she has felt dizzy. She does not feel palpitations, however she feels them" in her head." She feels very dizzy during these episodes and must sit down. She called her cash applications analyst who informed her to come to the emergency room where she will be admitted with cardiology consultation for a pacemaker placement during this hospitalization. Otherwise, the patient is doing fine and has no complaints. Denies chest pain, nausea, vomiting, shortness of breath. No dysuria. She received her pacemaker this am and feels improved so far. She is concerned about her possibility of bleeding or clotting as she has had so many problems in the past. She is back on her seizure meds and other meds now but was concerned about missing some doses when she was NPO. PE at Discharge GENERAL: Well-appearing, well-developed patient. Sitting up in bed this morning. In NAD. SKIN: No rashes. Lower left leg ecchymoses. Cool and dry. Dressing over left chest at site of pacemaker placement present. Wound appears c/d/i. NECK: Trachea midline. No JVD or lymphadenopathy. Supple, nontender, no meningeal signs. CARDIOVASCULAR: Regular rate and rhythm without murmurs, gallops, or rubs. RESPIRATORY: Clear to auscultation. Breath sounds equal bilaterally. No wheezes , rales, or rhonchi. GASTROINTESTINAL: Abdomen soft, non-tender, nondistended. No hepato-splenomegaly , or palpable masses. No guarding. MUSCULOSKELETAL: Extremities without clubbing, cyanosis, or edema. No joint tenderness, effusion, or edema noted. No calf tenderness. Negative Homans sign bilaterally. NEUROLOGICAL: Awake and alert. Cranial nerves II through XII intact. Motor and sensory grossly within normal limits. Five out of 5 muscle strength in all muscle groups. Normal speech. Hospital Course 66 year-old female admitted with c/o syncope. Known h/o dysrhythmia. Sent by cash applications analyst for pacemaker placement. Dual chamber pacemaker placed 06/08. PT consulted. Dizziness improved with pacemaker placement, but did have orthostatic hypotension when evaluated by PT 06/09 with BP 81/49. A 1L fluid bolus was given and repeat orthostatic vitals were WNL. Plan was to discharge patient home that day, however, she continued to c/o significant dizziness and concern for potential fall at home. Patient was kept overnight after discussion with attending physician. Patient was encouraged to push fluids overnight. By , dizziness had significantly improved and patient was discharged home with scheduled cards f/u. Pt Condition on Discharge: Stable Discharge Disposition: Discharge Home Discharge Instructions DIET: Follow Instructions for: Heart Healthy Diet Activities you can perform: Regular-No Restrictions Brett Porter MD R3 Aug 13, 2016 11:56
[2016-08-20] MEDS ORDERED: TRAZ100T4 PO (15:27)
[2016-08-25] MEDS ORDERED: SOMA350T PO (15:18)
[2016-08-27] MEDS ORDERED: LANTINJ SQ (09:12)
[2016-09-01] MEDS ORDERED: REST15CA PO (08:27)
[2016-09-01] MEDS ORDERED: DIFL150T PO (11:29)
[2016-09-01] MEDS ORDERED: HYDR-3535 PO (11:31)
== END 2016-06-10 12:29 | disposition home health service (06) | DRG 243 ==
LOC: NEPC 17:19 → NEDA 20:24 → NEDH 06-08 00:03 → HCIS 06-08 03:38
PROVIDERS: ADMIT Family Medicine; ATTEND Family Medicine
PROC: 02H63JZ Insertion of Pacemaker Lead into Right Atrium, Percutaneous Approach (ICD-10-PCS; 2016-06-08)
PROC: 02HK3JZ Insertion of Pacemaker Lead into Right Ventricle, Percutaneous Approach (ICD-10-PCS; 2016-06-08)
PROC: 0JH606Z Insertion of Pacemaker, Dual Chamber into Chest Subcutaneous Tissue and Fascia, Open Approach (ICD-10-PCS; principal; 2016-06-08 10:30)
PROC: 4B02XSZ Measurement of Cardiac Pacemaker, External Approach (ICD-10-PCS; 2016-06-09)
DX: R00.1 Bradycardia, unspecified (principal); E87.1 Hypo-osmolality and hyponatremia; D61.818 Other pancytopenia; D68.9 Coagulation defect, unspecified; I50.9 Heart failure, unspecified; E66.01 Morbid (severe) obesity due to excess calories; F32.9 Major depressive disorder, single episode, unspecified; F41.9 Anxiety disorder, unspecified; J45.909 Unspecified asthma, uncomplicated; M06.9 Rheumatoid arthritis, unspecified; M19.90 Unspecified osteoarthritis, unspecified site; M79.7 Fibromyalgia; E78.00 Pure hypercholesterolemia, unspecified; E11.9 Type 2 diabetes mellitus without complications; K59.00 Constipation, unspecified; I10 Essential (primary) hypertension; Z79.4 Long term (current) use of insulin; Z88.1 Allergy status to other antibiotic agents; Z88.5 Allergy status to narcotic agent; Z88.8 Allergy status to other drugs, medicaments and biological substances; Z86.73 Personal history of transient ischemic attack (TIA), and cerebral infarction without residual deficits; M54.5 Low back pain; E03.9 Hypothyroidism, unspecified; E78.5 Hyperlipidemia, unspecified; G47.00 Insomnia, unspecified; G40.909 Epilepsy, unspecified, not intractable, without status epilepticus; Z83.3 Family history of diabetes mellitus; Z82.49 Family history of ischemic heart disease and other diseases of the circulatory system; Z80.41 Family history of malignant neoplasm of ovary; Z79.02 Long term (current) use of antithrombotics/antiplatelets; Z80.8 Family history of malignant neoplasm of other organs or systems
CPT/HCPCS: 33208; 36415; 71010; 80048; 80053; 82550; 82552; 82948; 83735; 84484; 85025; 85610; 85730; 87641; 93005; C1785; C1898; J0360; J1650; J2250; J2405; J3010; J3370; J7030; J7050; Q0169

== ENCOUNTER 2016-06-24 16:24 | Observation (INO) | payer MEDICARE, OTHER ==
[~2016-06-24] VITALS: Ht 175.3 cm; Wt 100.0 kg
[~2016-06-24 16:24] MED LIST changes: -ALBU6.7H INH; -AMLO2.5T PO; -CAPT50TA PO; -GABA400C5 PO; +GABA800T PO; +LISI-515 PO; +REST15CA PO; -SENN8.6T5 PO; -SIME80CH CHEW; -TEMA15CA PO
[2016-06-24 16:41] VITALS: BP 185/74; PULSE 62; RESP 18; TEMP 98.6; O2SAT 98
[2016-06-24] MEDS ORDERED: SODIUM CHLORIDE 0.9% FLUSH 10 ML FLUSH IVF PRN (16:45)
[2016-06-24] MEDS: NITROGLYCERIN 0.4 MG SL 25 TABS/BTL SL SCH ×3 (16:50→17:19)
[2016-06-24 16:52] VITALS: BP_SYST 166; BP_SYST 168; BP_DIAS 72; BP_DIAS 79; PULSE 60; RESP 16; O2SAT 98
--- NOTE | 2016-06-24 16:59 | PD ---
HPI Chief Complaint: Chest Pain Time Seen by Provider: 16:55 Travel History International Travel<30 days: No Contact w/Intl Traveler<30days: No Traveled to known affect area: No History of Present Illness HPI Patient comes in complaining of substernal chest pain has been ongoing since having a pacemaker placed twice last month. Patient states last night she had pain in her left jaw and tingling in her left fingers as well with this. Patient denies anything making this better. Pain is worse with exertion. Patient reports associated night sweats and dyspnea. Denies any nausea, vomiting, or headaches. Patient states she has not with her lead recoverer about this yet has an appointment with Dr. Bradshaw, who placed the pacemaker, tomorrow , but her lead recoverer is Dr. Sanders. [facility] Past Medical History Hx Anticoagulant Therapy: Yes (LOVENOX) Anemia: Yes Arthritis: Yes (OA, RA, SA, FIBRO) Asthma: Yes Autoimmune Disease: No Blood Disorders: Yes (pt is on lovenox ) Anxiety: Yes Depression: Yes Heart Rhythm Problems: Yes (MURMUR) Cancer: No Cardiac Catheterization: No Cardiovascular Problems: Yes High Cholesterol: Yes Chemotherapy: No Chest Pain: No Congestive Heart Failure: No COPD: No Cerebrovascular Accident: Yes Diabetes: Yes Patient Takes Glucophage: No Diminished Hearing: No Deep Vein Thrombosis: Yes Endocrine: Yes Fibromyalgia: Yes Gastrointestinal Disorders: Yes (excessive gas,) GERD: No Genitourinary: No Hepatitis: No Hiatal Hernia: Yes Hypertension: Yes Immune Disorder: No Implanted Vascular Access Dvce: Yes Kidney Stones: No Musculoskeletal: Yes Neurologic: Yes (cva-residual none) Psychiatric: No Reproductive: Yes Respiratory: Yes (ASTHMA) Immunizations Current: Yes Migraines: No Pneumonia: Yes Radiation Therapy: No Renal Failure: No Seizures: Yes (AUGUST 2011) Sickle Cell Disease: No Sleep Apnea: No Thyroid Disease: No Ulcer: No Influenza Vaccination: No ?: Unknown Menopausal: Yes : 1 Para: 1 Dilation and Curettage (D&C): Yes Past Surgical History Abdominal Aneurysm Repair: No Abdominal Surgery: Yes ( ABDOMINAL TUMORS REMOVED) AICD: No Appendectomy: No Arteriovenous Shunt: No Cardiac Surgery: No Cholecystectomy: No Coronary Artery Bypass Graft: No Coronary Stent: No Ear Surgery: No Endocrine Surgery: No Eye Surgery: No Genitourinary Surgery: Yes (R URETERAL STENT) Gynecologic Surgery: Yes (D&C X4, TOTAL HYSTERECTOMY, BILATERAL OOPHORECTOMY ) Hysterectomy: Yes (1971) Insulin Pump: No Joint Replacement: No Mastectomy: No Neurologic Surgery: Yes (BRAIN -- MENINGIOMA REMOVED 1999) Oral Surgery: Yes (TA) Pacemaker: No Prostatectomy: No Tonsillectomy: No Tympanostomy Tube: No Valve Replacement: No Other Surgery: Yes (filter placed for blood clots) Social History Alcohol Use: No Tobacco Use: No Substance Use: No Allergies-Medications (Allergen,Severity, Reaction): Coded Allergies: Adhesives (Verified Allergy, Severe, skin pealing, 06/24/16) Aspirin (Verified Allergy, Severe, HIVES, 06/24/16) Clonidine (Verified Allergy, Severe, Psychosis. Leg edema, , 06/24/16) "MAKES ME FEEL LOOPY" Compazine (Verified Allergy, Severe, b/p drop, 06/24/16) Coumadin (Verified Allergy, Severe, PT DOES NOT KNOW REACTION, 06/24/16) Erythromycin (Verified Allergy, Severe, 06/24/16) Keflex (Verified Allergy, Severe, Nausea/Vomiting, 06/24/16) Mobic (Verified Allergy, Severe, 06/24/16) PT STATES SHE CAN'T TAKE NSAIDS Morphine (Verified Allergy, Severe, Hallucinations, 06/24/16) Nonsteroidal Anti-Inflammatory Agts (Verified Allergy, Severe, 06/24/16) Percocet (Verified Allergy, Severe, Hallucinations, 06/24/16) Tetracycline (Verified Allergy, Severe, UNKNOWN REACTION PER PT, 06/24/16) Theophylline (Verified Allergy, Severe, Nausea/Vomiting, 06/24/16) Amoxicillin (Verified Allergy, Intermediate, ITCHING, 06/24/16) Formaldehyde (Verified Allergy, Unknown, not specifically related., ) Antivert (Verified Adverse Reaction, Severe, Nausea/Vomiting,dizzy, ) Cipro (Verified Adverse Reaction, Severe, Nausea/Vomiting, 06/24/16) Effexor (Verified Adverse Reaction, Severe, All the SE, 06/24/16) Glucophage (Verified Adverse Reaction, Severe, Got hypoglycemic and passed out x 2. Dr MAULIK Ridley , 06/24/16) advised her never to take again. Lipitor (Verified Adverse Reaction, Severe, numbness of both legs. , 06/24) Promethazine (Verified Adverse Reaction, Severe, low blood pressure, ) by history according to patient. Uncoded Allergies: NICKEL (Allergy, Severe, RASH, 08/31/13) swelling Ice (Adverse Reaction, Severe, Severe muscle spasms and cramps, 08/31/13) Reported Meds & Prescriptions Reported Meds & Active Scripts Active Atenolol 25 Mg Tab 25 Mg PO DAILY Lortab (Hydrocodone-Acetaminophen) 10-325 Mg Tab 1 Tab PO Q4H PRN 1-2 three times a day for pain Trazodone (Trazodone HCl) 100 Mg Tab 250 Mg PO HS Carisoprodol 350 Mg Tab 350 Mg PO TID PRN Ventolin Hfa 18 GM Inh (Albuterol Sulfate) 90 Mcg/Act Aer 2 Puff INH Q6H PRN Lasix (Furosemide) 40 Mg Tab 40 Mg PO DAILY Linzess (Linaclotide) 145 Mcg Cap 145 Mcg PO DAILY Carbamazepine 200 Mg Tab 400 Mg PO TID Levothyroxine (Levothyroxine Sodium) 50 Mcg Tab 50 Mcg PO DAILY Crestor (Rosuvastatin Calcium) 40 Mg Tab 40 Mg PO HS Glimepiride 1 Mg Tab 2 Tab PO BID Take with breakfast or first main meal Actos (Pioglitazone HCl) 30 Mg Tab 30 Mg PO DAILY Reported Enoxaparin Inj (Enoxaparin Sodium) 60 Mg/0.6 Ml Syr 60 Mg SQ BID Diclofenac Sodium DR (Diclofenac Sodium) 75 Mg Tabdr 75 Mg PO DAILY Gabapentin 800 Mg Tab 800 Mg PO TID Levemir Flextouch Pen Inj (Insulin Detemir) 300 unit/3 ML Pen 20 Units SQ HS Lisinopril 20 Mg Tab 20 Mg PO HS Omeprazole 40 Mg Cap 40 Mg PO HS Miralax Powder (Polyethylene Glycol 3350 Powder) 17 Gm Powd 17 Gm PO DAILY PRN Mix and dissolve one measuring cap-ful (17 grams) in water or juice. Restoril (Temazepam) 15 Mg Cap 15 Mg PO HS Creon (Amylase/Lipase/Protease) 24,000-76,000-120,000 Units Cap 1 Cap PO BID Humalog Inj (Insulin Human Lispro) 1,000 Unit/10 Ml Vial 2-12 Units SQ ACHS Max dose at bedtime:( )units; sugars < 70,(0)units; sugars 150-199,(2)units; sugars 200-249,(4)units; sugars 250-299,(7)units; sugars 300-349,(10)units; sugars more than 349,(12)units. Lidoderm Patch 12 HR (Lidocaine) 5% Patch 1 Patch TOPICAL DAILY PRN Remove patch after 12 hours Cytomel (Liothyronine Sodium) 5 Mcg Tab 5 Mcg PO HS Review of Systems Except as stated in HPI: all other systems reviewed are Neg Physical Exam Narrative GENERAL: Well-developed, overly nourished, in no acute distress, and non-ill appearing. SKIN: Focused skin assessment warm and dry. HEAD: Atraumatic. Normocephalic. EYES: Pupils equal and round. EOMI. No scleral icterus. No injection or drainage. ENT: No nasal bleeding or discharge. Mucous membranes pink and moist. NECK: Trachea midline. No JVD. Supple. No nuclear rigidity. CARDIOVASCULAR: Regular rate and rhythm. No murmur appreciated. RESPIRATORY: No accessory muscle use. No respiratory distress. Clear to auscultation. Breath sounds equal bilaterally. MUSCULOSKELETAL: No obvious deformities. No clubbing. No cyanosis. No edema. Full range of motion. NEUROLOGICAL: Awake and alert. No obvious cranial nerve deficits. Motor grossly within normal limits. Normal speech. PSYCHIATRIC: Appropriate mood and affect; insight and judgment normal. Data Data Last Documented VS Vital Signs Date Time Temp Pulse Resp B/P Pulse Ox O2 Delivery O2 Flow Rate FiO2 06/24/16 16:52 60 16 168/72 98 Room Air 166/79 06/24/16 16:41 98.6 Orders Electrocardiogram (06/24/16 16:45) Basic Metabolic Panel (Bmp) (06/24/16 16:45) Ckmb (Isoenzyme) Profile (06/24/16 16:45) Complete Blood Count With Diff (06/24/16 16:45) Magnesium (Mg) (06/24/16 16:45) Prothrombin Time / Inr (Pt) (06/24/16 16:45) Act Partial Throm Time (Ptt) (06/24/16 16:45) Troponin I (06/24/16 16:45) Chest, Single Ap (06/24/16 16:45) Ecg Monitoring (06/24/16 16:45) Bilateral Bp Monitoring (06/24/16 16:45) Iv Access Insert/Monitor (06/24/16 16:45) Oximetry (06/24/16 16:45) Oxygen Administration (06/24/16 16:45) Sodium Chloride 0.9% Flush (Ns Flush) (06/24/16 16:45) Nitroglycerin Sl (Nitrostat Sl) (06/24/16 16:45) CKMB (06/24/16 17:00) CKMB% (06/24/16 17:00) Labs Laboratory Tests Test 06/24/16 17:00 White Blood Count 3.7 TH/MM3 Red Blood Count 3.46 MIL/MM3 Hemoglobin 10.6 GM/DL Hematocrit 31.9 % Mean Corpuscular Volume 92.2 FL Mean Corpuscular Hemoglobin 30.5 PG Mean Corpuscular Hemoglobin 33.1 % Concent Red Cell Distribution Width 13.9 % Platelet Count 146 TH/MM3 Mean Platelet Volume 6.9 FL Neutrophils (%) (Auto) 43.5 % Lymphocytes (%) (Auto) 43.0 % Monocytes (%) (Auto) 8.3 % Eosinophils (%) (Auto) 4.0 % Basophils (%) (Auto) 1.2 % Neutrophils # (Auto) 1.6 TH/MM3 Lymphocytes # (Auto) 1.6 TH/MM3 Monocytes # (Auto) 0.3 TH/MM3 Eosinophils # (Auto) 0.1 TH/MM3 Basophils # (Auto) 0.0 TH/MM3 CBC Comment DIFF FINAL Differential Comment Prothrombin Time 10.8 SEC Prothromb Time International 1.0 RATIO Ratio Activated Partial 28.5 SEC Thromboplast Time Sodium Level 135 MEQ/L Potassium Level 4.3 MEQ/L Chloride Level 100 MEQ/L Carbon Dioxide Level 30.1 MEQ/L Anion Gap 5 MEQ/L Blood Urea Nitrogen 18 MG/DL Creatinine 0.83 MG/DL Estimat Glomerular Filtration 69 ML/MIN Rate Random Glucose 135 MG/DL Calcium Level 8.7 MG/DL Magnesium Level 2.0 MG/DL Total Creatine Kinase 259 U/L Creatine Kinase MB 5.3 NG/ML Creatine Kinase MB % 2.0 % Troponin I 0.02 NG/ML MDM Medical Decision Making Medical Screen Exam Complete: Yes Emergency Medical Condition: Yes Interpretation(s) EKG reviewed by Dr. Nicholas, shows paced rhythm with a rate of 59. No STEMI. Differential Diagnosis Acute coronary syndrome, atypical chest pain, pneumonia, electrolyte abnormality , other Narrative Course 1820 patient reassessed resting comfortably in bed in no acute distress. Reports no chest pain currently. Patient is uncertain if the nitroglycerin helped her chest pain or not. [address] Nicholas who recommends touching base with patients lead recoverer. 1836 discussed all findings and plan of care with patient was agreeable for admission. All questions were answered. Physician Communication Physician Communication [phone] Peralta, lead recoverer on-call for Dr. Sanders, who recommends and patient placed in the chest pain center. Diagnosis Primary Impression: Chest pain Qualified Code: R07.9 - Chest pain, unspecified type Admitting Information Admitting Physician Requests: Observation Condition: Stable Sabino Reich Jun 24, 2016 16:58
--- NOTE | 2016-06-24 17:31 | RADRPT ---
EXAM DATE/TIME: 06/24/2016 16:45 [facility] COMPARISON: CHEST SINGLE AP, June 08, 2016, 12:31. INDICATIONS : Chest pain. MEDICAL HISTORY : Cerebrovascular disease. Hypertension. Asthma. SURGICAL HISTORY : Craniotomy. ENCOUNTER: Initial ACUITY: 1 week PAIN SCORE: 5/10 LOCATION: Bilateral chest FINDINGS: Cardiomegaly. Clear lungs. Dual-lead pacer again noted. Osseous structures are intact. CONCLUSION: No acute disease. Osei Schrader MD on June 24, 2016 at 17:30 Board Certified Radiologist. This report was verified electronically.
[2016-06-24 17:51] LABS: AUTOMATED NEUTROPHIL # 1.6 TH/MM3 (1.8-7.7); BASOPHIL % 1.2 % (0.0-2.0); EOSINOPHIL # 0.1 TH/MM3 (0-0.4); HEMATOCRIT 31.9 % (35.0-46.0); HEMO FLAGS DIFF FINAL; LYMPHOCYTE # 1.6 TH/MM3 (1.0-4.8); MEAN CELL VOLUME 92.2 FL (80.0-100.0); MEAN CORPUSCULAR HEMOGLOBIN 30.5 PG (27.0-34.0); MEAN CORPUSCULAR HGB CONC 33.1 % (32.0-36.0); MONO % 8.3 % (0.0-8.0); NEUT % 43.5 % (16.0-70.0); PLATELET COUNT 146 TH/MM3 (150-450); RED BLOOD COUNT 3.46 MIL/MM3 (4.00-5.30); RED CELL DISTRIBUTION WIDTH 13.9 % (11.6-17.2); WHITE BLOOD COUNT 3.7 TH/MM3 (4.0-11.0)
[2016-06-24 17:59] LABS: APTT (PATIENT) 28.5 SEC (24.3-30.1); PROTHROMBIN TIME - PATIENT 10.8 SEC (9.8-11.6)
[2016-06-24 18:12] LABS: BICARBONATE 30.1 MEQ/L (21.0-32.0); POTASSIUM 4.3 MEQ/L (3.5-5.1)
[2016-06-24 18:28] LABS: CKMB 5.3 NG/ML (0.5-3.6)
[2016-06-24 20:11] VITALS: BP 184/77; PULSE 62; RESP 20; TEMP 97.9; O2SAT 100
[2016-06-24 21:00] VITALS: PULSE 63
[2016-06-24] MEDS: SODIUM CHLORIDE 0.9% FLUSH 10 ML FLUSH IV FLUSH PRN (22:02)
[2016-06-24 22:15] LABS: CKMB 4.4 NG/ML (0.5-3.6)
[2016-06-24] MEDS ORDERED: traZODone HCL 100 MG TAB PO PRN (23:15)
[2016-06-24] MEDS ORDERED: TEMAZEPAM 15 MG CAP PO PRN (23:15)
[2016-06-24 23:55] VITALS: BP 189/86; PULSE 60; RESP 20; TEMP 98.5; O2SAT 99
[2016-06-25] VITALS: PULSE 59
[2016-06-25 00:29] LABS: CKMB 4.4 NG/ML (0.5-3.6)
[2016-06-25 03:44] VITALS: BP 186/72; PULSE 60; RESP 20; TEMP 98.5; O2SAT 96
[2016-06-25 04:00] VITALS: PULSE 60
[2016-06-25 08:51] VITALS: PULSE 61
[2016-06-25] MEDS ORDERED: ONDANSETRON HCL 4 MG/2 ML VIAL IV PRN (09:00)
[2016-06-25] MEDS ORDERED: NITROGLYCERIN 0.4 MG SL 25 TABS/BTL SL PRN (09:00)
[2016-06-25] MEDS ORDERED: FUROSEMIDE 40 MG TAB PO SCH (09:00)
[2016-06-25] MEDS ORDERED: LEVOTHYROXINE SODIUM 50 MCG TAB PO SCH (09:00)
[2016-06-25] MEDS ORDERED: ATENOLOL 25 MG TAB PO SCH (09:00)
[2016-06-25] MEDS ORDERED: REGADENOSON INJ 0.4 MG/5 ML SYR ONE (09:35)
--- NOTE | 2016-06-25 09:36 | HHI.HP ---
HPI Primary Care Physician Javier Dill MD Chief Complaint Chest pain History of Present Illness 66-year-old female with diabetes, hypertension, hyperlipidemia, and recent pacemaker placed presents to the emergency room for further evaluation of chest discomfort. Pacemaker placed 06/08/16 and since this time she has had intermittent substernal chest discomfort. After speaking with one of her friends she decided she should have further evaluation she states "I've never had chest discomfort until after pacemaker was placed." Chest discomfort starts in substernal area with radiation under her left breast, duration last seconds, characterized as a "small elephant sitting on my chest." No associated symptoms. Endorses over the last couple of nights she has had night sweats and dyspnea. Chest discomfort is nonexertional. No known precipitating factors. Relieving factors occasionally is putting pressure on affected area. Endorses Wednesday evening she was awakened from left jaw pain and left arm numbness, no chest discomfort during this episode. Review of Systems General: No fatigue,weakness, fever, chills, or recent illness HEENT: No HAWKINS, no vision changes, no nasal congestion or drainage, no dysphasia CV: As stated above, No current CP. No pressure, palpitations, intermittent leg pain, dizziness RESP: No SOB, cough, wheeze, or asthma GI: No nausea, vomiting, bowel changes, diarrhea, constipation, pain, distention , melena, blood in the stool. No change in appetite, no unintentional weight gain or weight loss : No dysuria, urgency, frequency EXT: No lower leg edema, no paraesthesias MS: No discomfort or change in ROM NEURO: No change in memory, dizziness, difficulty with balance, LOC, motor/ sensory deficits PSYCH: No anxiety or depression SKIN: No rashes, no concerning lesions Past Family Social History Allergies: Coded Allergies: Adhesives (Verified Allergy, Severe, skin pealing, 06/24/16) Aspirin (Verified Allergy, Severe, HIVES, 06/24/16) Clonidine (Verified Allergy, Severe, Psychosis. Leg edema, , 06/24/16) "MAKES ME FEEL LOOPY" Compazine (Verified Allergy, Severe, b/p drop, 06/24/16) Coumadin (Verified Allergy, Severe, PT DOES NOT KNOW REACTION, 06/24/16) Erythromycin (Verified Allergy, Severe, 06/24/16) Keflex (Verified Allergy, Severe, Nausea/Vomiting, 06/24/16) Mobic (Verified Allergy, Severe, 06/24/16) PT STATES SHE CAN'T TAKE NSAIDS Morphine (Verified Allergy, Severe, Hallucinations, 06/24/16) Nonsteroidal Anti-Inflammatory Agts (Verified Allergy, Severe, 06/24/16) Percocet (Verified Allergy, Severe, Hallucinations, 06/24/16) Tetracycline (Verified Allergy, Severe, UNKNOWN REACTION PER PT, 06/24/16) Theophylline (Verified Allergy, Severe, Nausea/Vomiting, 06/24/16) Amoxicillin (Verified Allergy, Intermediate, ITCHING, 06/24/16) Formaldehyde (Verified Allergy, Unknown, not specifically related., ) Antivert (Verified Adverse Reaction, Severe, Nausea/Vomiting,dizzy, ) Cipro (Verified Adverse Reaction, Severe, Nausea/Vomiting, 06/24/16) Effexor (Verified Adverse Reaction, Severe, All the SE, 06/24/16) Glucophage (Verified Adverse Reaction, Severe, Got hypoglycemic and passed out x 2. Dr MAULIK Ridley , 06/24/16) advised her never to take again. Lipitor (Verified Adverse Reaction, Severe, numbness of both legs. , 06/24) Promethazine (Verified Adverse Reaction, Severe, low blood pressure, ) by history according to patient. Uncoded Allergies: NICKEL (Allergy, Severe, RASH, 08/31/13) swelling Ice (Adverse Reaction, Severe, Severe muscle spasms and cramps, 08/31/13) Past Medical History Diabetes, hypertension, hyperlipidemia, CVA, asthma, pacemaker, hyperhomocysteinemia Past Surgical History Hysterectomy, bilateral oophorectomy, right total knee replacement, meningioma removed, right ureteral stent Reported Medications Reported Meds & Active Scripts Active Atenolol 25 Mg Tab 25 Mg PO DAILY Lortab (Hydrocodone-Acetaminophen) 10-325 Mg Tab 1 Tab PO Q4H PRN 1-2 three times a day for pain Trazodone (Trazodone HCl) 100 Mg Tab 250 Mg PO HS Carisoprodol 350 Mg Tab 350 Mg PO TID PRN Ventolin Hfa 18 GM Inh (Albuterol Sulfate) 90 Mcg/Act Aer 2 Puff INH Q6H PRN Lasix (Furosemide) 40 Mg Tab 40 Mg PO DAILY Linzess (Linaclotide) 145 Mcg Cap 145 Mcg PO DAILY Carbamazepine 200 Mg Tab 400 Mg PO TID Levothyroxine (Levothyroxine Sodium) 50 Mcg Tab 50 Mcg PO DAILY Crestor (Rosuvastatin Calcium) 40 Mg Tab 40 Mg PO HS Glimepiride 1 Mg Tab 2 Tab PO BID Take with breakfast or first main meal Reported Enoxaparin Inj (Enoxaparin Sodium) 60 Mg/0.6 Ml Syr 60 Mg SQ BID Diclofenac Sodium DR (Diclofenac Sodium) 75 Mg Tabdr 75 Mg PO DAILY Gabapentin 800 Mg Tab 800 Mg PO TID Levemir Flextouch Pen Inj (Insulin Detemir) 300 unit/3 ML Pen 20 Units SQ HS Lisinopril 20 Mg Tab 20 Mg PO HS Omeprazole 40 Mg Cap 40 Mg PO HS Miralax Powder (Polyethylene Glycol 3350 Powder) 17 Gm Powd 17 Gm PO DAILY PRN Mix and dissolve one measuring cap-ful (17 grams) in water or juice. Restoril (Temazepam) 15 Mg Cap 15 Mg PO HS Creon (Amylase/Lipase/Protease) 24,000-76,000-120,000 Units Cap 1 Cap PO BID Humalog Inj (Insulin Human Lispro) 1,000 Unit/10 Ml Vial 2-12 Units SQ ACHS Max dose at bedtime:( )units; sugars < 70,(0)units; sugars 150-199,(2)units; sugars 200-249,(4)units; sugars 250-299,(7)units; sugars 300-349,(10)units; sugars more than 349,(12)units. Lidoderm Patch 12 HR (Lidocaine) 5% Patch 1 Patch TOPICAL DAILY PRN Remove patch after 12 hours Cytomel (Liothyronine Sodium) 5 Mcg Tab 5 Mcg PO HS Active Ordered Medications Current Medications Medications (Trade) Dose Ordered Sig/Tamara Route Start Time Stop Time Status Last Admin (NS Flush) 2 ml UNSCH PRN IVF 06/24/16 16:45 (NS Flush) 2 ml UNSCH PRN IV FLUSH 06/24/16 18:45 06/24/16 22:02 (Restoril) 15 mg HS PRN PO 06/24/16 23:15 06/24/16 23:21 (Desyrel) 200 mg HS PRN PO 4/12/17 23:15 06/24/16 23:21 (Zofran Inj) 4 mg Q6H PRN IV 06/25/16 09:00 UNV (Nitrostat Sl) 0.4 mg Q5M PRN SL 06/25/16 09:00 UNV (Tenormin) 25 mg DAILY PO 06/25/16 09:00 UNV (TEGretol) 400 mg TID PO 06/25/16 09:00 UNV (Lovenox Inj) 60 mg BID SQ 06/25/16 09:00 UNV (Lasix) 40 mg DAILY PO 06/25/16 09:00 UNV (Neurontin) 800 mg TID PO 06/25/16 09:00 UNV (Synthroid) 50 mcg DAILY PO 06/25/16 09:00 UNV (Prinivil) 20 mg HS PO 06/25/16 21:00 UNV Non-Formulary Medication 40 mg HS PO 06/25/16 21:00 UNV Non-Formulary Medication 40 mg HS PO 06/25/16 21:00 UNV Social History Known diabetes, hyperlipidemia, and hypertension. Lifelong nonsmoker. Denies any alcohol or illegal drug use. Past cardiac testing September 2015reports "completely normal stress test." Test completed in [place]. Patient's paste maker is Dr. Ronny Sanders. Dr. Joey Bradshaw placed her pacemaker 06/08/16. Physical Exam Vital Signs Vital Signs Date Time Temp Pulse Resp B/P Pulse Ox O2 Delivery O2 Flow Rate FiO2 06/25/16 08:51 61 06/25/16 04:00 60 06/25/16 03:44 98.5 60 20 186/72 96 06/25/16 00:00 59 06/24/16 23:55 98.5 60 20 189/86 99 06/24/16 21:00 63 06/24/16 20:11 97.9 62 20 184/77 100 06/24/16 16:52 60 16 168/72 98 Room Air 166/79 06/24/16 16:41 61 18 98 Room Air 06/24/16 16:41 98.6 62 18 185/74 98 Room Air Physical Exam GENERAL: Alert WN, WD, NAD, pleasant, obese, female HEAD: NC, AT EYES: Sclera clear, conjunctiva without injection, pupils equal and round NECK: Supple, no masses, trachea midline CV: RRR, without murmur, rub, gallop, no JVD, S1-S2 no S3-S4. RESP: Clear lungs throughout bilateral, no crackles, wheeze, rhonchi, symmetrical chest rise, nonlabored, able to speak in full sentences ABD: Soft, NT, ND, no masses, positive bowel tones EXT: Pulses +24, no dependent edema MS: Normal tone 4 extremities, nontender, no obvious deformities, full range of motion NEURO: CN II through CN XII grossly intact, motor strength 5/5, gait WNL PSYCH: A+O 3, pleasant affect, appropriate speech, appropriate mood and affect , insight and judgment SKIN: Normal turgor, normal texture, no lesions, no rashes, brisk cap refill, even hair distribution Laboratory Laboratory Tests Test 06/24/16 06/24/16 06/24/16 17:00 20:00 23:20 White Blood Count 3.7 Red Blood Count 3.46 Hemoglobin 10.6 Hematocrit 31.9 Mean Corpuscular Volume 92.2 Mean Corpuscular Hemoglobin 30.5 Mean Corpuscular Hemoglobin 33.1 Concent Red Cell Distribution Width 13.9 Platelet Count 146 Mean Platelet Volume 6.9 Neutrophils (%) (Auto) 43.5 Lymphocytes (%) (Auto) 43.0 Monocytes (%) (Auto) 8.3 Eosinophils (%) (Auto) 4.0 Basophils (%) (Auto) 1.2 Neutrophils # (Auto) 1.6 Lymphocytes # (Auto) 1.6 Monocytes # (Auto) 0.3 Eosinophils # (Auto) 0.1 Basophils # (Auto) 0.0 CBC Comment DIFF FINAL Differential Comment Prothrombin Time 10.8 Prothromb Time International 1.0 Ratio Activated Partial 28.5 Thromboplast Time Sodium Level 135 Potassium Level 4.3 Chloride Level 100 Carbon Dioxide Level 30.1 Anion Gap 5 Blood Urea Nitrogen 18 Creatinine 0.83 Estimat Glomerular Filtration 69 Rate Random Glucose 135 Calcium Level 8.7 Magnesium Level 2.0 Total Creatine Kinase 259 232 203 Creatine Kinase MB 5.3 4.4 4.4 Creatine Kinase MB % 2.0 1.9 2.2 Troponin I 0.02 0.02 0.02 Result Diagram: 06/24/16 1700 06/24/16 1700 Imaging Last Impressions Chest X-Ray 06/24/16 1645 Signed Impressions: Service Date/Time: Friday, June 24, 2016 16:45 - CONCLUSION: No acute disease. Osei Schrader MD Course EKGs Electronic Atrial paced rhythm Assessment and Plan Assessment and Plan #1 Chest painadmitted to chest pain center. Ruled out with 3 EKGs, cardiac enzymes, and monitored overnight. Was seen and evaluated by Dr. Jania Mcmillan. Call patient's paste maker, Dr. Ronny Sanders, requesting chemical stress test. Further disposition to follow chemical stress test. #2 DiabetesSSI coverage #3 Hypertensioncontinue lisinopril #4 Hyperlipidemiacontinue Crestor #5 Hyperhomocysteinemia-continue Lovenox #6 Hypothyroidismcontinue levothyroxine Sary Fernandez Jun 25, 2016 09:36
[2016-06-25] MEDS ORDERED: ENOXAPARIN SODIUM 60 MG/0.6 ML SYRINGE SQ SCH (11:00)
[2016-06-25] MEDS ORDERED: GLUCAGON 1 MG/ML VIAL OTHER PRN (11:45)
[2016-06-25] MEDS ORDERED: DEXTROSE 50% IN WATER 50 ML VIAL(D50) IV PUSH PRN (11:45)
--- NOTE | 2016-06-25 11:57 | RADRPT ---
EXAM DATE/TIME: 06/25/2016 09:13 [facility] COMPARISON: MYOCARDIAL PERF PHARM SPECT, GATED W/EF, June 30, 2014, 15:20. INDICATIONS : Substernal chest pain radiating to left jaw and left hand with diaphoresis and dyspnea. Angina. DOSE: 35.0 mCi Tc99m Myoview at stress. 11.0 mCi Tc99m Myoview at rest. 0.4 mg Lexiscan STRESS SYMPTOMS: Dyspnea and chest pain. EJECTION FRACTION: 68% MEDICAL HISTORY : Hypercholesterolemia. Hypertension. Deep venous thrombosis. Asthma. SURGICAL HISTORY : Hysterectomy. Pacemaker. Total knee replacement, right. ENCOUNTER: Initial ACUITY: 1 month PAIN SCALE: 6/10 LOCATION: Substernal chest TECHNIQUE: The patient underwent pharmacologic stress with infusion of prescribed dose. Continuous ECG tracing was monitored during stress. Gated SPECT imaging was performed after stress and conventional SPECT i maging was performed at rest. The examination was performed on a SPECT/CT scanner, both attenuation and non-corrected datasets were reviewed. FINDINGS: DISTRIBUTION: The maximum perfused segment at stress is in the inferoseptal wall. PERFUSION STUDY: No fixed or reversible perfusion defect is identified. GATED STUDY: There is intact wall motion and thickening without hypokinetic or dyskinetic segments. CONCLUSION: 1. No fixed or reversible perfusion defect is identified. 2. Normal left ventricle wall motion with calculated ejection fraction of 68%. RISK CATEGORY: Low (<1% Annual Mortality Rate) Magdaleno Gama MD on June 25, 2016 at 11:49 Board Certified Radiologist. This report was verified electronically.
[2016-06-25 11:59] VITALS: BP 212/94; PULSE 60; RESP 22; TEMP 97.5; O2SAT 99
--- NOTE | 2016-06-25 12:03 | HHI.DCPOC ---
Discharge Care Plan Diagnosis: (1) Atypical chest pain Goals to Promote Your Health * To prevent worsening of your condition and complications * To maintain your health at the optimal level Directions to Meet Your Goals Take your medications as prescribed Follow your dietary instruction Follow activity as directed Keep your appointments as scheduled Take your immunizations and boosters as scheduled If your symptoms worsen call your PCP, if no PCP go to Urgent Care Center or Emergency Room Smoking is Dangerous to Your Health. Avoid second hand smoke Call the 24-hour hour crisis hotline for domestic abuse at Sary Fernandez Jun 25, 2016 12:03
[2016-06-25] MEDS: SODIUM CHLORIDE 0.9% FLUSH 10 ML FLUSH IV FLUSH PRN ×2 (12:27→13:14)
[2016-06-25] MEDS: GABAPENTIN 400 MG CAP PO SCH ×2 (13:00→14:03)
[2016-06-25] MEDS: carBAMazepine 200 MG TAB PO SCH ×2 (13:00→14:02)
[2016-06-25] MEDS ORDERED: LISINOPRIL 20 MG TAB PO SCH ×2 (13:00→21:00)
[2016-06-25 14:18] VITALS: BP 172/90
[2016-06-25] MEDS ORDERED: INSULIN ASPART SUPPLEMENTAL SCALE SQ SCH (16:00)
[2016-06-25] MEDS ORDERED: ATORVASTATIN 80 MG TAB PO SCH (21:00)
[2016-06-25] MEDS ORDERED: PANTOPRAZOLE SOD 40 MG DELAYED RELEASE TAB PO SCH (21:00)
--- NOTE | 2016-06-26 11:38 | TR ---
Date Performed: 06/25/2016 Time Performed: 10:19:53 DOCTOR: Jania Mcmillan DRUG LIST: CATAPRES Restoril CLINICAL HISTORY: HTN CVA ANGINA DAIEBTES REASON FOR TEST: REASON FOR ENDING: OBSERVATION: CONCLUSION: Lexiscan stress test was performed under standard four minute protocol. Radionuclid e was injected one minute prior to ending the test. No electrocardiographic abormalities were present to suggest ischemia. Nuclear imaging and interpretation are pending. COMMENTS:
--- NOTE | 2016-06-26 11:39 | EKG ---
Date Performed: 06/24/2016 Time Performed: 23:14:13 PTAGE: 66 years EKG: ELECTRONIC ATRIAL PACEMAKER POSSIBLE LATERAL MYOCARDIAL INFARCTION ABNORMAL RHYTHM ECG Sinc e PREVIOUS TRACING , no significant change noted PREVIOUS TRACIN06/24/2016 20.06 DOCTOR: Jania Mcmillan Interpretating Date/Time 06/26/2016 11:37:36
--- NOTE | 2016-06-26 11:40 | EKG ---
Date Performed: 06/24/2016 Time Performed: 20:06:21 PTAGE: 66 years EKG: ELECTRONIC ATRIAL PACEMAKER BORDERLINE LEFT AXIS DEVIATION MODERATE INTRAVENTRICULAR CONDUC TION DELAY ABNORMAL RHYTHM ECG Since PREVIOUS TRACING , no significant change noted PREVIOUS TRACIN06/24/2016 17.05 DOCTOR: Jania Mcmillan Interpretating Date/Time 06/26/2016 11:39:39
--- NOTE | 2016-06-26 11:40 | EKG ---
Date Performed: 06/24/2016 Time Performed: 17:05:20 PTAGE: 66 years EKG: ELECTRONIC ATRIAL PACEMAKER BORDERLINE LEFT AXIS DEVIATION MODERATE INTRAVENTRICULAR CONDUC TION DELAY ABNORMAL RHYTHM ECG Since PREVIOUS TRACING , no significant change noted PREVIOUS TRACIN06/07/2016 19.23 DOCTOR: Jania Mcmillan Interpretating Date/Time 06/26/2016 11:38:26
[2016-07-03] MEDS ORDERED: HYDR-3535 PO (15:55)
[2016-07-20] MEDS ORDERED: CARI350T20 PO (19:08)
[2016-07-23] MEDS ORDERED: GABA400C5 PO (07:19)
[2016-08-04] MEDS ORDERED: NOVOLOGP2 SQ (11:38)
[2016-08-07] MEDS ORDERED: HYDR-3535 PO (15:30)
[2016-08-20] MEDS ORDERED: TRAZ100T4 PO (15:27)
[2016-08-25] MEDS ORDERED: SOMA350T PO (15:18)
[2016-08-27] MEDS ORDERED: LANTINJ SQ (09:12)
[2016-09-01] MEDS ORDERED: REST15CA PO (08:27)
[2016-09-01] MEDS ORDERED: DIFL150T PO (11:29)
[2016-09-01] MEDS ORDERED: HYDR-3535 PO (11:31)
== END 2016-06-25 15:55 | disposition home or self-care (01) ==
LOC: NEPC 16:24 → NEDA 18:39 → NEPHCDU 19:58
PROVIDERS: ADMIT Internal Medicine Cardiovascular Disease; ATTEND Internal Medicine Cardiovascular Disease
DX: R07.89 Other chest pain (principal); E11.9 Type 2 diabetes mellitus without complications; E78.5 Hyperlipidemia, unspecified; E03.9 Hypothyroidism, unspecified; E72.11 Homocystinuria; I10 Essential (primary) hypertension; J45.909 Unspecified asthma, uncomplicated; D64.9 Anemia, unspecified; F41.9 Anxiety disorder, unspecified; F32.9 Major depressive disorder, single episode, unspecified; E78.00 Pure hypercholesterolemia, unspecified; M79.7 Fibromyalgia; Z86.718 Personal history of other venous thrombosis and embolism; Z86.73 Personal history of transient ischemic attack (TIA), and cerebral infarction without residual deficits; Z87.01 Personal history of pneumonia (recurrent); Z88.6 Allergy status to analgesic agent; Z88.1 Allergy status to other antibiotic agents; Z88.5 Allergy status to narcotic agent; Z88.0 Allergy status to penicillin; Z88.8 Allergy status to other drugs, medicaments and biological substances; Z79.4 Long term (current) use of insulin; Z95.0 Presence of cardiac pacemaker; Z96.651 Presence of right artificial knee joint; Z86.011 Personal history of benign neoplasm of the brain
CPT/HCPCS: 71010; 78452; 80048; 82550; 82552; 83735; 84484; 85025; 85610; 85730; 93005; 93017; 99285; A9502; G0378; J1650; J2785

== ENCOUNTER 2016-07-28 13:07 | Emergency (ER) | payer MEDICARE, OTHER ==
[~2016-07-28] VITALS: Ht 165.1 cm; Wt 123.5 kg
[~2016-07-28 13:07] MED LIST changes: -ACTO30TA10 PO; +GABA400C5 PO; -GABA800T PO
[2016-07-28 13:16] VITALS: BP 172/74; PULSE 57; RESP 16; TEMP 98; O2SAT 97
--- NOTE | 2016-07-28 13:45 | PD ---
HPI Chief Complaint: Head Injury Time Seen by Provider: 13:20 Travel History International Travel<30 days: No Contact w/Intl Traveler<30days: No Traveled to known affect area: No History of Present Illness HPI This is a 66-year-old female who presents to the emergency department having had an episode of syncope 3 days ago. The patient has a complicated medical history. She has history of DVT and pulmonary emboli, and recently had a pacemaker placed in late May for positive and recurrent syncope. She reports that she was sitting at her pentecostalism this weekend in a chair when she fell out of her chair and hit her head. She says she started with a bump on her right head but since the bump is traveled under her left head. She says she's had a moderate severity headache since then, constant, with no associated vomiting. She is supposed to be on Lovenox but hasn't been taking it ever since her fall. She says she's been suffering mostly with a headache since then. She saw her oncologist today who told her to come to the emergency department immediately. PFSH Past Medical History Hx Anticoagulant Therapy: Yes (LOVENOX) Anemia: Yes Arthritis: Yes (OA, RA, SA, FIBRO) Asthma: Yes Autoimmune Disease: No Blood Disorders: Yes (pt is on lovenox ) Anxiety: Yes Depression: Yes Heart Rhythm Problems: Yes (MURMUR) Cancer: No Cardiac Catheterization: No Cardiovascular Problems: Yes (NEW PACERMAKER, CHOL, HTN) High Cholesterol: Yes Chemotherapy: No Chest Pain: No Congestive Heart Failure: No COPD: No Cerebrovascular Accident: Yes (CVA) Diabetes: Yes Diminished Hearing: No Deep Vein Thrombosis: Yes Endocrine: Yes Fibromyalgia: Yes Gastrointestinal Disorders: Yes (excessive gas,) GERD: No Genitourinary: No Hepatitis: No Hiatal Hernia: Yes Hypertension: Yes Immune Disorder: No Implanted Vascular Access Dvce: Yes Kidney Stones: No Musculoskeletal: Yes Neurologic: Yes (cva-residual none) Psychiatric: No Reproductive: Yes Respiratory: Yes (ASTHMA) Immunizations Current: Yes Migraines: No Pneumonia: Yes Radiation Therapy: No Renal Failure: No Seizures: Yes (AUGUST 2011) Sickle Cell Disease: No Sleep Apnea: No Thyroid Disease: No Ulcer: No ?: Not Menopausal: Yes : 1 Para: 1 Dilation and Curettage (D&C): Yes Past Surgical History Abdominal Aneurysm Repair: No Abdominal Surgery: Yes ( ABDOMINAL TUMORS REMOVED) AICD: No Appendectomy: No Arteriovenous Shunt: No Cardiac Surgery: No Cholecystectomy: No Coronary Artery Bypass Graft: No Coronary Stent: No Ear Surgery: No Endocrine Surgery: No Eye Surgery: No Genitourinary Surgery: Yes (R URETERAL STENT) Gynecologic Surgery: Yes (D&C X4, TOTAL HYSTERECTOMY, BILATERAL OOPHORECTOMY ) Hysterectomy: Yes (1971) Insulin Pump: No Joint Replacement: No Mastectomy: No Neurologic Surgery: Yes (BRAIN -- MENINGIOMA REMOVED 1999) Oral Surgery: Yes (TA) Pacemaker: No Prostatectomy: No Tonsillectomy: No Tympanostomy Tube: No Valve Replacement: No Other Surgery: Yes (filter placed for blood clots) Social History Alcohol Use: No Tobacco Use: No Substance Use: No Allergies-Medications (Allergen,Severity, Reaction): Coded Allergies: Adhesives (Verified Allergy, Severe, skin pealing, 07/28/16) Aspirin (Verified Allergy, Severe, HIVES, 07/28/16) Clonidine (Verified Allergy, Severe, Psychosis. Leg edema, , 07/28/16) "MAKES ME FEEL LOOPY" Compazine (Verified Allergy, Severe, b/p drop, 07/28/16) Coumadin (Verified Allergy, Severe, PT DOES NOT KNOW REACTION, 07/28/16) Erythromycin (Verified Allergy, Severe, 07/28/16) Keflex (Verified Allergy, Severe, Nausea/Vomiting, 07/28/16) Mobic (Verified Allergy, Severe, 07/28/16) PT STATES SHE CAN'T TAKE NSAIDS Morphine (Verified Allergy, Severe, Hallucinations, 07/28/16) Nonsteroidal Anti-Inflammatory Agts (Verified Allergy, Severe, 07/28/16) Percocet (Verified Allergy, Severe, Hallucinations, 07/28/16) Tetracycline (Verified Allergy, Severe, UNKNOWN REACTION PER PT, 07/28/16) Theophylline (Verified Allergy, Severe, Nausea/Vomiting, 07/28/16) Amoxicillin (Verified Allergy, Intermediate, ITCHING, 07/28/16) Formaldehyde (Verified Allergy, Unknown, not specifically related., ) Antivert (Verified Adverse Reaction, Severe, Nausea/Vomiting,dizzy, ) Cipro (Verified Adverse Reaction, Severe, Nausea/Vomiting, 07/28/16) Effexor (Verified Adverse Reaction, Severe, All the SE, 07/28/16) Glucophage (Verified Adverse Reaction, Severe, Got hypoglycemic and passed out x 2. Dr MAULIK Ridley , 07/28/16) advised her never to take again. Lipitor (Verified Adverse Reaction, Severe, numbness of both legs. , 07/28) Promethazine (Verified Adverse Reaction, Severe, low blood pressure, ) by history according to patient. Uncoded Allergies: NICKEL (Allergy, Severe, RASH, 08/31/13) swelling Ice (Adverse Reaction, Severe, Severe muscle spasms and cramps, 08/31/13) Reported Meds & Prescriptions Reported Meds & Active Scripts Active Restoril (Temazepam) 15 Mg Cap 15 Mg PO HS Gabapentin 400 Mg Cap 800 Cap PO TID 2 tabs (800ng) three times daily Carisoprodol 350 Mg Tab 350 Mg PO TID PRN Lortab (Hydrocodone-Acetaminophen) 10-325 Mg Tab 1 Tab PO Q4H PRN 1-2 three times a day for pain Trazodone (Trazodone HCl) 100 Mg Tab 250 Mg PO HS Ventolin Hfa 18 GM Inh (Albuterol Sulfate) 90 Mcg/Act Aer 2 Puff INH Q6H PRN Lasix (Furosemide) 40 Mg Tab 40 Mg PO DAILY Linzess (Linaclotide) 145 Mcg Cap 145 Mcg PO DAILY Carbamazepine 200 Mg Tab 400 Mg PO TID Levothyroxine (Levothyroxine Sodium) 50 Mcg Tab 50 Mcg PO DAILY Crestor (Rosuvastatin Calcium) 40 Mg Tab 40 Mg PO HS Glimepiride 1 Mg Tab 2 Tab PO BID Take with breakfast or first main meal Reported Enoxaparin Inj (Enoxaparin Sodium) 60 Mg/0.6 Ml Syr 60 Mg SQ BID Diclofenac Sodium DR (Diclofenac Sodium) 75 Mg Tabdr 75 Mg PO DAILY Levemir Flextouch Pen Inj (Insulin Detemir) 300 unit/3 ML Pen 18 Units SQ HS Lisinopril 20 Mg Tab 20 Mg PO HS Omeprazole 40 Mg Cap 40 Mg PO HS Miralax Powder (Polyethylene Glycol 3350 Powder) 17 Gm Powd 17 Gm PO DAILY PRN Mix and dissolve one measuring cap-ful (17 grams) in water or juice. Creon (Amylase/Lipase/Protease) 24,000-76,000-120,000 Units Cap 1 Cap PO BID Humalog Inj (Insulin Human Lispro) 1,000 Unit/10 Ml Vial 2-12 Units SQ ACHS Max dose at bedtime:( )units; sugars < 70,(0)units; sugars 150-199,(2)units; sugars 200-249,(4)units; sugars 250-299,(7)units; sugars 300-349,(10)units; sugars more than 349,(12)units. Lidoderm Patch 12 HR (Lidocaine) 5% Patch 1 Patch TOPICAL DAILY PRN Remove patch after 12 hours Cytomel (Liothyronine Sodium) 5 Mcg Tab 5 Mcg PO HS Review of Systems Except as stated in HPI: all other systems reviewed are Neg Physical Exam Narrative GENERAL: Morbidly obese. SKIN: Focused skin assessment warm and dry. HEAD: Atraumatic. Normocephalic. EYES: Pupils equal and round. No injection or drainage. ENT: Moist mucous membranes NECK: Trachea midline. CARDIOVASCULAR: Regular rate and rhythm. 2/6 systolic murmur. RESPIRATORY: Clear to auscultation. Breath sounds equal bilaterally. GASTROINTESTINAL: Abdomen soft, non-tender, nondistended. MUSCULOSKELETAL: No obvious deformities. NEUROLOGICAL: Awake and alert. No obvious cranial nerve deficits. Moving all extremities. PSYCHIATRIC: Appropriate mood and affect; insight and judgment normal. Data Data Last Documented VS Vital Signs Date Time Temp Pulse Resp B/P Pulse Ox O2 Delivery O2 Flow Rate FiO2 07/28/16 13:16 98.0 57 16 172/[address] Brain W/O Iv Contrast(Rout) (07/28/16 ) Ct Cerv Spine W/O Contrast (07/28/16 ) Complete Blood Count With Diff (07/28/16 13:28) Comprehensive Metabolic Panel (07/28/16 13:28) ^ Insert Iv (07/28/16 13:28) Electrocardiogram (07/28/16 ) Labs Laboratory Tests Test 07/28/16 15:16 White Blood Count 4.0 TH/MM3 Red Blood Count 3.72 MIL/MM3 Hemoglobin 11.4 GM/DL Hematocrit 34.2 % Mean Corpuscular Volume 92.0 FL Mean Corpuscular Hemoglobin 30.8 PG Mean Corpuscular Hemoglobin 33.5 % Concent Red Cell Distribution Width 12.9 % Platelet Count 142 TH/MM3 Mean Platelet Volume 6.8 FL Neutrophils (%) (Auto) 43.0 % Lymphocytes (%) (Auto) 43.7 % Monocytes (%) (Auto) 8.6 % Eosinophils (%) (Auto) 4.1 % Basophils (%) (Auto) 0.6 % Neutrophils # (Auto) 1.7 TH/MM3 Lymphocytes # (Auto) 1.8 TH/MM3 Monocytes # (Auto) 0.3 TH/MM3 Eosinophils # (Auto) 0.2 TH/MM3 Basophils # (Auto) 0.0 TH/MM3 CBC Comment DIFF FINAL Differential Comment Sodium Level 128 MEQ/L Potassium Level 4.1 MEQ/L Chloride Level 92 MEQ/L Carbon Dioxide Level 28.5 MEQ/L Anion Gap 8 MEQ/L Blood Urea Nitrogen 20 MG/DL Creatinine 0.83 MG/DL Estimat Glomerular Filtration 69 ML/MIN Rate Random Glucose 124 MG/DL Calcium Level 8.6 MG/DL Total Bilirubin 0.3 MG/DL Aspartate Amino Transf 15 U/L (AST/SGOT) Alanine Aminotransferase 22 U/L (ALT/SGPT) Alkaline Phosphatase 89 U/L Total Protein 7.1 GM/DL Albumin 4.1 GM/DL MDM Medical Decision Making Medical Screen Exam Complete: Yes Emergency Medical Condition: Yes Interpretation(s) Afebrile, bradycardic, hypertensive No leukocytosis Mild anemia Hyponatremia EKG: Paced rhythm CT head and cervical spine are reassuring Differential Diagnosis Arrhythmia, electrolyte abnormality, dehydration, intracranial hemorrhage, cervical spine fracture Narrative Course This is a 66-year-old female who presents to the emergency department having had an episode of syncope several days ago with closed head injury. Her maintenance supervisor sent her here because she was on Lovenox prior to the head injury. She has a normal neurologic exam. She is placed on a monitor and an IV was established. EKG is reassuring. Pacemaker was interrogated and was normal functioning. CT of the head and cervical spine were obtained which were reassuring. Labs were obtained which demonstrate hyponatremia. I recommended that the patient hold her Lasix for a day or 2 but she doesn't want to and says that her baseline sodium level. I don't think she has any reason to be admitted to the hospital. She is closely followed by multiple subspecialists. She seems to have a personality disorder that's contributing to her behavior and complicates her interactions with the health care system. She has multiple stated allergies to adhesives, nickel, and "ice" as well as numerous medications , and presents difficulties with routine testing like obtaining an EKG. She seems somatically preoccupied and is asking me why a lump on her head and has moved to the other side of her head, and she approached my desk after discharge with concerns, getting very close to me physically, and violating the privacy of other patients. She certainly has real disease but also seems to have a psychatric or somatiform component to what is going on. Diagnosis Primary Impression: Closed head injury Qualified Code: S09.90XA - Closed head injury, initial encounter Patient Instructions: General Instructions Additional Instructions: If you develop severe chest pain, shortness of breath, sweating, lightheadedness , dizziness or difficulty breathing return to the emergency department immediately. Followup with your primary care physician in 2-3 days if your symptoms are not resolved. Med/Other Pt SpecificInfo: Existing Med Changed (restart your Lovenox) Disposition: 01 DISCHARGE HOME Condition: Stable Shakira Ling MD July 28, 2016 13:45
[2016-07-28] MEDS ORDERED: REST15CA PO (13:53)
--- NOTE | 2016-07-28 14:35 | RADHPO ---
EXAM DATE/TIME: 07/28/2016 14:00 [facility] COMPARISON: CT BRAIN W/O CONTRAST, May 29, 2015, 17:42. CT BRAIN W/O CONTRAST, April 27, 2016, 17:37. INDICATIONS : Patient fell and struck her head 3 days ago. RADIATION DOSE: 59.30 CTDIvol (mGy) MEDICAL HISTORY : Hypertension. Seizures. SURGICAL HISTORY : Craniotomy. Pacemaker. ENCOUNTER: Initial ACUITY: 3 days PAIN SCALE: 8/10 LOCATION: cranial TECHNIQUE: Multiple contiguous axial images were obtained of the head. Using automated exposure control and adj ustment of the mA and/or kV according to patient size, radiation dose was kept as low as reasonably a chievable to obtain optimal diagnostic quality images. FINDINGS: Imaging through the brain demonstrates a smaller area of calcification along the anterior aspect of t he right temporal lobe this is unchanged in appearance compared to prior examination. There is a cran iotomy defect immediately above this. No acute intracranial hemorrhage is identified. The ventricles are normal in size and configuration. There is a small lacunar infarct in the left basal ganglia. This is stable compared to previous exami [facility] as well. Bone window images again demonstrate postcraniotomy changes in the right parietal skull. There is a s mall hematoma within the scalp on the left. CONCLUSION: 1. No acute intracranial hemorrhage. 2. Stable area of calcification along the anterior aspect of the right temporal lobe. There is a cran iotomy defect immediately above this. Eder Hinojosa MD on July 28, 2016 at 14:17 Board Certified Radiologist. This report was verified electronically.
--- NOTE | 2016-07-28 14:49 | RADHPO ---
EXAM DATE/TIME: 07/28/2016 14:00 [facility] COMPARISON: CT CERVICAL SPINE W/O CONTRAST, May 29, 2015, 17:42. INDICATIONS : Patient fell and struck her head and neck 3 days ago. RADIATION DOSE: 26.66 CTDIvol (mGy) MEDICAL HISTORY : Seizures. Hypertension. SURGICAL HISTORY : Pacemaker. IVC Filter placement. ENCOUNTER: Initial ACUITY: 3 days PAIN SCALE: 8/10 LOCATION: neck TECHNIQUE: Volumetric scanning of the cervical spine was performed. Multiplanar reconstructions in the sagittal, coronal and oblique axial planes were performed. Using automated exposure control and adjustment o f the mA and/or kV according to patient size, radiation dose was kept as low as reasonably achievable to obtain optimal diagnostic quality images. FINDINGS: VERTEBRAE: Normal vertebral body height. Multilevel degenerative changes. Posterior disc osteophyte complexes ar e seen at C3-4, C5-6 and C6-7 levels. No canal stenosis. Hypertrophic facets. ALIGNMENT: No evidence of subluxation. CONCLUSION: 1. No fracture or subluxation. 2. Multilevel degenerative changes. 3. No change. German Washington MD on July 28, 2016 at 14:43 Board Certified Radiologist. This report was verified electronically.
[2016-07-28 15:32] LABS: AUTOMATED NEUTROPHIL # 1.7 TH/MM3 (1.8-7.7); BASOPHIL % 0.6 % (0.0-2.0); EOSINOPHIL # 0.2 TH/MM3 (0-0.4); EOSINOPHIL % 4.1 % (0.0-4.0); HEMATOCRIT 34.2 % (35.0-46.0); HEMO FLAGS DIFF FINAL; LYMPH % 43.7 % (9.0-44.0); LYMPHOCYTE # 1.8 TH/MM3 (1.0-4.8); MEAN CORPUSCULAR HEMOGLOBIN 30.8 PG (27.0-34.0); MEAN CORPUSCULAR HGB CONC 33.5 % (32.0-36.0); MONO % 8.6 % (0.0-8.0); PLATELET COUNT 142 TH/MM3 (150-450); RED BLOOD COUNT 3.72 MIL/MM3 (4.00-5.30); RED CELL DISTRIBUTION WIDTH 12.9 % (11.6-17.2)
[2016-07-28 15:47] LABS: CHLORIDE 92 MEQ/L (98-107); POTASSIUM 4.1 MEQ/L (3.5-5.1); SODIUM (NA) 128 MEQ/L (136-145)
[2016-07-28 15:51] LABS: ANION GAP 8 MEQ/L (5-15); BICARBONATE 28.5 MEQ/L (21.0-32.0); BLOOD UREA NITROGEN 20 MG/DL (7-18)
[2016-07-28 15:54] LABS: ALT (GPT) 22 U/L (10-53); AST (GOT) 15 U/L (15-37); GLOMERULAR FILTRATION RATE 69 ML/MIN (>89)
[2016-07-28 15:55] LABS: TOTAL BILIRUBIN ADULT 0.3 MG/DL (0.2-1.0)
[2016-07-28 15:57] LABS: ALKALINE PHOSPHATASE 89 U/L (45-117)
[2016-07-28 16:29] VITALS: BP 139/88
--- NOTE | 2016-07-29 11:04 | EKG ---
Date Performed: 07/28/2016 Time Performed: 13:39:12 PTAGE: 66 years EKG: A-V sequential pacemaker Pacemaker rhythm - no further analysis Abnormal ECG PREVIOUS TRACING : 06/24/2016 23.14 DOCTOR: Sunday Peralta Interpretating Date/Time 07/29/2016 11:03:50
[2016-08-04] MEDS ORDERED: NOVOLOGP2 SQ (11:38)
[2016-08-07] MEDS ORDERED: HYDR-3535 PO (15:30)
[2016-08-20] MEDS ORDERED: TRAZ100T4 PO (15:27)
[2016-08-25] MEDS ORDERED: SOMA350T PO (15:18)
[2016-08-27] MEDS ORDERED: LANTINJ SQ (09:12)
[2016-09-01] MEDS ORDERED: REST15CA PO (08:27)
[2016-09-01] MEDS ORDERED: DIFL150T PO (11:29)
[2016-09-01] MEDS ORDERED: HYDR-3535 PO (11:31)
== END 2016-07-28 16:32 | disposition home or self-care (01) ==
LOC: PHED 13:07
DX: S09.90XA Unspecified injury of head, initial encounter (principal); R55 Syncope and collapse; E87.1 Hypo-osmolality and hyponatremia; R00.1 Bradycardia, unspecified; D64.9 Anemia, unspecified; E11.9 Type 2 diabetes mellitus without complications; I10 Essential (primary) hypertension; W07.XXXA Fall from chair, initial encounter; Z95.0 Presence of cardiac pacemaker
CPT/HCPCS: 70450; 72125; 80053; 85025; 93005

== ENCOUNTER 2016-08-27 11:11 | Inpatient (IN) | payer MEDICARE, MEDICAID ==
[~2016-08-27] VITALS: Ht 165.1 cm; Wt 121.8 kg
[~2016-08-27 11:11] MED LIST changes: -ATEN25TA PO; -HUMALOG SQ; +LANTINJ SQ; +NOVOLOGP2 SQ; +SOMA350T PO
[2016-08-27 11:14] VITALS: BP 172/72; PULSE 65; RESP 20; TEMP 98.2; O2SAT 98
--- NOTE | 2016-08-27 11:26 | PD ---
Physical Exam Time Seen by Provider: 11:23 Narrative 66yo F sent by Dr. Dill, oncology, because of low sodium. Sodium 121 yesterday. REports memory loss, stuttering, disorganization, headache. Denies chest pain. Reports SOB since pacemaker placed June 08. Patient seen in triage. VS reviewed. Awaiting bed placement. Data Data Last Documented VS Vital Signs Date Time Temp Pulse Resp B/P Pulse Ox O2 Delivery O2 Flow Rate FiO2 08/27/16 11:14 98.2 65 20 172/72 98 Room Air MDM Supervised Visit with LITTLE: Saira Aguilar Aug 27, 2016 11:26
[2016-08-27 12:18] LABS: HEMATOCRIT 37.7 % (35.0-46.0); MEAN CELL VOLUME 94.9 FL (80.0-100.0); MEAN CORPUSCULAR HEMOGLOBIN 31.3 PG (27.0-34.0); PLATELET COUNT 129 TH/MM3 (150-450); RED BLOOD COUNT 3.98 MIL/MM3 (4.00-5.30); RED CELL DISTRIBUTION WIDTH 13.6 % (11.6-17.2); REVIEW FLAG FINAL; WHITE BLOOD COUNT 3.5 TH/MM3 (4.0-11.0)
--- NOTE | 2016-08-27 12:18 | PD ---
HPI Chief Complaint: Abnormal Results Time Seen by Provider: 12:18 Travel History International Travel<30 days: No Contact w/Intl Traveler<30days: No Traveled to known affect area: No History of Present Illness HPI 66-year-old female with history of CVA with no residual effect, meningioma resection in 1999, seizure disorder, pacemaker placement in May of this year, hypertension presents to the emergency department for evaluation of low sodium. Patient states over the last week or so she has been having difficulty remembering things and noticed word stuttering. She had lab work done yesterday that revealed a sodium of 121. Patient was advised to come to the emergency department by her primary care provider Dr. Dill. She denies any chest pain or tightness. States that she has not felt 100% well since having her pacemaker placed, but she has not had any recent illnesses, fever, chills. Denies any nausea or vomiting. Denies any focal deficits or weakness. No headache. She has no other symptoms to report. PFSH Past Medical History Hx Anticoagulant Therapy: Yes (LOVENOX) Anemia: Yes Arthritis: Yes (OA, RA, SA, FIBRO) Asthma: Yes Autoimmune Disease: No Blood Disorders: Yes (pt is on lovenox ) Anxiety: Yes Depression: Yes Heart Rhythm Problems: Yes (MURMUR) Cancer: No Cardiac Catheterization: No Cardiovascular Problems: Yes High Cholesterol: Yes Chemotherapy: No Chest Pain: No Congestive Heart Failure: No COPD: No Cerebrovascular Accident: Yes (CVA) Diabetes: Yes Diminished Hearing: No Deep Vein Thrombosis: Yes Endocrine: Yes Fibromyalgia: Yes Gastrointestinal Disorders: Yes (excessive gas,) GERD: No Genitourinary: No Hepatitis: No Hiatal Hernia: Yes Hypertension: Yes Immune Disorder: No Implanted Vascular Access Dvce: Yes Kidney Stones: No Musculoskeletal: Yes Neurologic: Yes (cva-residual none) Psychiatric: No Reproductive: Yes Respiratory: Yes (ASTHMA) Immunizations Current: Yes Migraines: No Pneumonia: Yes Radiation Therapy: No Renal Failure: No Seizures: Yes (AUGUST 2011) Sickle Cell Disease: No Sleep Apnea: No Thyroid Disease: No Ulcer: No Menopausal: Yes : 1 Para: 1 Dilation and Curettage (D&C): Yes Past Surgical History Abdominal Aneurysm Repair: No Abdominal Surgery: Yes ( ABDOMINAL TUMORS REMOVED) AICD: No Appendectomy: No Arteriovenous Shunt: No Cardiac Surgery: Yes (pacer) Cholecystectomy: No Coronary Artery Bypass Graft: No Coronary Stent: No Ear Surgery: No Endocrine Surgery: No Eye Surgery: No Genitourinary Surgery: Yes (R URETERAL STENT) Gynecologic Surgery: Yes (D&C X4, TOTAL HYSTERECTOMY, BILATERAL OOPHORECTOMY ) Hysterectomy: Yes (1971) Insulin Pump: No Joint Replacement: No Mastectomy: No Neurologic Surgery: Yes (BRAIN -- MENINGIOMA REMOVED 1999) Oral Surgery: Yes (TA) Pacemaker: No Prostatectomy: No Tonsillectomy: No Tympanostomy Tube: No Valve Replacement: No Other Surgery: Yes (filter placed for blood clots) Social History Alcohol Use: No Tobacco Use: No Substance Use: No Allergies-Medications (Allergen,Severity, Reaction): Coded Allergies: Adhesives (Verified Allergy, Severe, skin pealing, 08/04/16) Aspirin (Verified Allergy, Severe, HIVES, 08/04/16) Clonidine (Verified Allergy, Severe, Psychosis. Leg edema, , 08/04/16) "MAKES ME FEEL LOOPY" Compazine (Verified Allergy, Severe, b/p drop, 08/04/16) Coumadin (Verified Allergy, Severe, PT DOES NOT KNOW REACTION, 08/04/16) Erythromycin (Verified Allergy, Severe, 08/04/16) Keflex (Verified Allergy, Severe, Nausea/Vomiting, 08/27/16) Mobic (Verified Allergy, Severe, 08/27/16) PT STATES SHE CAN'T TAKE NSAIDS Morphine (Verified Allergy, Severe, Hallucinations, 08/27/16) Nonsteroidal Anti-Inflammatory Agts (Verified Allergy, Severe, 08/27/16) Percocet (Verified Allergy, Severe, Hallucinations, 08/27/16) Tetracycline (Verified Allergy, Severe, UNKNOWN REACTION PER PT, 08/27/16) Theophylline (Verified Allergy, Severe, Nausea/Vomiting, 08/27/16) Amoxicillin (Verified Allergy, Intermediate, ITCHING, 08/27/16) Formaldehyde (Verified Allergy, Unknown, not specifically related., ) Antivert (Verified Adverse Reaction, Severe, Nausea/Vomiting,dizzy, ) Cipro (Verified Adverse Reaction, Severe, Nausea/Vomiting, 08/27/16) Effexor (Verified Adverse Reaction, Severe, All the SE, 08/27/16) Glucophage (Verified Adverse Reaction, Severe, Got hypoglycemic and passed out x 2. Dr MAULIK Ridley , 08/27/16) advised her never to take again. Lipitor (Verified Adverse Reaction, Severe, numbness of both legs. , 08/27) Promethazine (Verified Adverse Reaction, Severe, low blood pressure, ) by history according to patient. Uncoded Allergies: NICKEL (Allergy, Severe, RASH, 08/31/13) swelling Ice (Adverse Reaction, Severe, Severe muscle spasms and cramps, 08/31/13) Reported Meds & Prescriptions Reported Meds & Active Scripts Active Lantus Solostar Pen Inj (Insulin Glargine) 300 Unit/3 Ml Pen 20 Units SQ DAILY Soma (Carisoprodol) 350 Mg Tab 350 Mg PO TID PRN Trazodone (Trazodone HCl) 100 Mg Tab 250 Mg PO HS Lortab (Hydrocodone-Acetaminophen) 10-325 Mg Tab 1 Tab PO Q4H PRN 1-2 three times a day for pain Novolog Inj (Insulin Aspart) 1,000 Unit/10 Ml Vial 2-12 Units SQ ACHS As directed by sliding scale. Restoril (Temazepam) 15 Mg Cap 15 Mg PO HS Gabapentin 400 Mg Cap 800 Cap PO TID 2 tabs (800ng) three times daily Ventolin Hfa 18 GM Inh (Albuterol Sulfate) 90 Mcg/Act Aer 2 Puff INH Q6H PRN Lasix (Furosemide) 40 Mg Tab 40 Mg PO DAILY Linzess (Linaclotide) 145 Mcg Cap 145 Mcg PO DAILY Carbamazepine 200 Mg Tab 400 Mg PO TID Levothyroxine (Levothyroxine Sodium) 50 Mcg Tab 50 Mcg PO DAILY Crestor (Rosuvastatin Calcium) 40 Mg Tab 40 Mg PO HS Glimepiride 1 Mg Tab 2 Tab PO BID Take with breakfast or first main meal Reported Enoxaparin Inj (Enoxaparin Sodium) 60 Mg/0.6 Ml Syr 60 Mg SQ BID Diclofenac Sodium DR (Diclofenac Sodium) 75 Mg Tabdr 75 Mg PO DAILY Levemir Flextouch Pen Inj (Insulin Detemir) 300 unit/3 ML Pen 18 Units SQ HS Lisinopril 20 Mg Tab 20 Mg PO HS Omeprazole 40 Mg Cap 40 Mg PO HS Miralax Powder (Polyethylene Glycol 3350 Powder) 17 Gm Powd 17 Gm PO DAILY PRN Mix and dissolve one measuring cap-ful (17 grams) in water or juice. Creon (Amylase/Lipase/Protease) 24,000-76,000-120,000 Units Cap 1 Cap PO BID Lidoderm Patch 12 HR (Lidocaine) 5% Patch 1 Patch TOPICAL DAILY PRN Remove patch after 12 hours Cytomel (Liothyronine Sodium) 5 Mcg Tab 5 Mcg PO HS Review of Systems Except as stated in HPI: all other systems reviewed are Neg Physical Exam Narrative GENERAL: Well-nourished female patient, in no acute distress SKIN: Focused skin assessment warm/dry. HEAD: Atraumatic. Normocephalic. EYES: Pupils equal and round. No scleral icterus. No injection or drainage. ENT: No nasal bleeding or discharge. Mucous membranes pink and moist. NECK: Trachea midline. No JVD. CARDIOVASCULAR: Regular rate and rhythm. RESPIRATORY: No accessory muscle use. Clear to auscultation. Breath sounds equal bilaterally. GASTROINTESTINAL: Abdomen soft, non-tender, nondistended. Hepatic and splenic margins not palpable. MUSCULOSKELETAL: No obvious deformities. No clubbing. No cyanosis. No edema. NEUROLOGICAL: Awake and alert. No obvious cranial nerve deficits. Motor grossly within normal limits. Normal speech. PSYCHIATRIC: Appropriate mood and affect; insight and judgment normal. Data Data Last Documented VS Vital Signs Date Time Temp Pulse Resp B/P Pulse Ox O2 Delivery O2 Flow Rate FiO2 08/27/16 11:14 98.2 65 20 172/72 98 Room Air Orders Cbc No Diff, Includes Plts (08/27/16 11:26) Basic Metabolic Panel (Bmp) (08/27/16 11:26) Urinalysis - C+S If Indicated (08/27/16 11:26) Electrocardiogram (08/27/16 12:26) Magnesium (Mg) (08/27/16 12:26) Ecg Monitoring (08/27/16 12:26) Bilateral Bp Monitoring (08/27/16 12:26) Iv Access Insert/Monitor (08/27/16 12:26) Oximetry (08/27/16 12:26) Oxygen Administration (08/27/16 12:26) Sodium Chloride 0.9% Flush (Ns Flush) (08/27/16 12:30) Sodium Chlor 0.9% 1000 Ml Inj (Ns 1000 M (08/27/16 12:30) Urine Culture (08/27/16 11:45) Ct Brain W/O Iv Contrast(Rout) (08/27/16 ) Carbamazepine (Tegretol) (08/27/16 12:50) Nitrofurantoin Monohyd Macrocr (Macrobid (08/27/16 13:00) Chest, Single Ap (08/27/16 ) Labs Laboratory Tests Test 08/27/16 08/27/16 11:45 12:45 White Blood Count 3.5 TH/MM3 Red Blood Count 3.98 MIL/MM3 Hemoglobin 12.5 GM/DL Hematocrit 37.7 % Mean Corpuscular Volume 94.9 FL Mean Corpuscular Hemoglobin 31.3 PG Mean Corpuscular Hemoglobin 33.0 % Concent Red Cell Distribution Width 13.6 % Platelet Count 129 TH/MM3 Mean Platelet Volume 6.8 FL Urine Color YELLOW Urine Turbidity CLOUDY Urine pH 5.5 Urine Specific [place] 1.017 Urine Protein TRACE mg/dL Urine Glucose (UA) NEG mg/dL Urine Ketones NEG mg/dL Urine Occult Blood SMALL Urine Nitrite NEG Urine Bilirubin NEG Urine Urobilinogen LESS THAN 2.0 MG/DL Urine Leukocyte Esterase LARGE Urine RBC 3 /hpf Urine WBC 21 /hpf Urine WBC Clumps RARE Urine Squamous Epithelial 9 /hpf Cells Urine Bacteria MANY /hpf Urine Hyaline Casts 4 /lpf Urine Mucus FEW /lpf Microscopic Urinalysis Comment CULTURE INDICATED Sodium Level 120 MEQ/L Potassium Level 5.3 MEQ/L Chloride Level 91 MEQ/L Carbon Dioxide Level 20.5 MEQ/L Anion Gap 9 MEQ/L Blood Urea Nitrogen 15 MG/DL Creatinine 0.86 MG/DL Estimat Glomerular Filtration 66 ML/MIN Rate Random Glucose 108 MG/DL Calcium Level 8.4 MG/DL Carbamazepine (Tegretol) Level 8.9 MCG/ML Magnesium Level 1.8 MG/DL [facility] Medical Decision Making Medical Screen Exam Complete: Yes Emergency Medical Condition: Yes Medical Record Reviewed: Yes Differential Diagnosis AMS versus UTI versus electrolyte abnormality versus intracranial hemorrhage. Narrative Course 66 year-old female presents to emergency department for evaluation. Patient appears without distress. Her vital signs are stable. EKG shows paced atrial and ventricular rhythm. Lab work from yesterday was reviewed with a sodium of 121. Lab was redrawn. CT imaging of the brain is ordered. Laboratory Tests Test 08/27/16 08/27/16 11:45 12:45 White Blood Count 3.5 TH/MM3 Red Blood Count 3.98 MIL/MM3 Hemoglobin 12.5 GM/DL Hematocrit 37.7 % Mean Corpuscular Volume 94.9 FL Mean Corpuscular Hemoglobin 31.3 PG Mean Corpuscular Hemoglobin 33.0 % Concent Red Cell Distribution Width 13.6 % Platelet Count 129 TH/MM3 Mean Platelet Volume 6.8 FL Urine Color YELLOW Urine Turbidity CLOUDY Urine pH 5.5 Urine Specific [place] 1.017 Urine Protein TRACE mg/dL Urine Glucose (UA) NEG mg/dL Urine Ketones NEG mg/dL Urine Occult Blood SMALL Urine Nitrite NEG Urine Bilirubin NEG Urine Urobilinogen LESS THAN 2.0 MG/DL Urine Leukocyte Esterase LARGE Urine RBC 3 /hpf Urine WBC 21 /hpf Urine WBC Clumps RARE Urine Squamous Epithelial 9 /hpf Cells Urine Bacteria MANY /hpf Urine Hyaline Casts 4 /lpf Urine Mucus FEW /lpf Microscopic Urinalysis Comment CULTURE INDICATED Sodium Level 120 MEQ/L Potassium Level 5.3 MEQ/L Chloride Level 91 MEQ/L Carbon Dioxide Level 20.5 MEQ/L Anion Gap 9 MEQ/L Blood Urea Nitrogen 15 MG/DL Creatinine 0.86 MG/DL Estimat Glomerular Filtration 66 ML/MIN Rate Random Glucose 108 MG/DL Calcium Level 8.4 MG/DL Carbamazepine (Tegretol) Level 8.9 MCG/ML Magnesium Level 1.8 MG/DL CBC is system with previous lab findings. BMP is with hyponatremia 120, hyperkalemia 5.3. Otherwise without acute concern. Urinalysis is cloudy with small occult blood, large leukocyte esterase, 21 WBC, rare WBC clumps, many bacteria, few mucus. Patient has many allergies to antibiotics. We will attempt Macrobid here in the emergency department by mouth for treatment of her UTI which could potentially be exacerbating her confusion. Tegretol level is 8.9. 1325 CT imaging is not yet complete. Once this is complete, pending no acute intracranial abnormality, patient will be admitted to the [facility] resident service.. Diagnosis Primary Impression: Hyponatremia Additional Impressions: Hyperkalemia UTI (urinary tract infection) Qualified Code: N39.0 - Urinary tract infection with hematuria, site unspecified Admitting Information Admitting Physician Requests: Admit Condition: Stable RoqueRossLigiadwaine QUIROZ Aug 27, 2016 12:18
[2016-08-27 12:29] LABS: BICARBONATE 20.5 MEQ/L (21.0-32.0); POTASSIUM 5.3 MEQ/L (3.5-5.1)
[2016-08-27] MEDS ORDERED: SODIUM CHLOR 0.9% 1000 ML INJ 1,000 ML IV ONE (12:30)
[2016-08-27] MEDS ORDERED: SODIUM CHLORIDE 0.9% FLUSH 10 ML FLUSH IVF PRN (12:30)
[2016-08-27 12:37] LABS: BACTERIA, URINE MANY /hpf; BLOOD, URINE SMALL (NEG); COMMENT (UR) CULTURE INDICATED; CULTURE IF INDICATED CULTURE INDICATED; GLUCOSE,URINE NEG (NEG); HYALINE CAST, URINE 4 /lpf (RARE); KETONE, URINE NEG (NEG); MUCUS URINE FEW /lpf (OCC); NITRITE,URINE NEG (NEG); PH, URINE 5.5 (5.0-8.5); SQUAMOUS EPITHELIAL CELL URINE 9 /hpf (0-5); URINE COLOR YELLOW (YELLW/STRAW)
[2016-08-27] MEDS ORDERED: NITROFURANTOIN MONOHYD MACROCR 100 MG CAP PO ONE (13:00)
[2016-08-27] MEDS ORDERED: PIOG30TA4 PO (13:30)
[2016-08-27] MEDS ORDERED: LIOT5TAB3 PO (13:30)
[2016-08-27] MEDS ORDERED: TRAZ1TAB45 PO (13:30)
--- NOTE | 2016-08-27 14:08 | RADRPT ---
EXAM DATE/TIME: 08/27/2016 13:31 [facility] COMPARISON: CT BRAIN W/O CONTRAST, July 28, 2016, 14:00. INDICATIONS : Short of breath and dizziness. RADIATION DOSE: 56.74 CTDIvol (mGy) MEDICAL HISTORY : Cardiovascular disease. SURGICAL HISTORY : Hysterectomy. Mastectomy, bilateral.Brain meningioma removal, abd tumor removed ENCOUNTER: Initial ACUITY: 1 day PAIN SCALE: 3/10 LOCATION: cranial TECHNIQUE: Multiple contiguous axial images were obtained of the head. Using automated exposure control and adj ustment of the mA and/or kV according to patient size, radiation dose was kept as low as reasonably a chievable to obtain optimal diagnostic quality images. FINDINGS: The patient is post right-sided craniotomy. There some old areas of calcification along the anterior aspect of both temporal lobes. This is stable compared to the previous examination. No acute hemorrha ge is seen. The ventricles are normal in size and configuration. No mass lesion is identified. The ap pearance of the posterior fossa is unremarkable. Note is made of an old lacunar infarct in the left basal ganglia. The osseous structures of the skull demonstrate craniotomy changes on the right. CONCLUSION: 1. Stable compared to previous examination. 2. Old areas of calcification along the anterior aspect of both temporal lobes. 3. Previous craniotomy on the right. Eder Hinojosa MD on August 27, 2016 at 14:01 Board Certified Radiologist. This report was verified electronically.
--- NOTE | 2016-08-27 14:10 | RADRPT ---
EXAM DATE/TIME: 08/27/2016 13:25 [facility] COMPARISON: CHEST SINGLE AP, June 24, 2016, 16:45. INDICATIONS : Chest pain. MEDICAL HISTORY : Stroke. Asthma SURGICAL HISTORY : Pacemaker. ENCOUNTER: Initial ACUITY: 2 days PAIN SCORE: 7/10 LOCATION: Left chest FINDINGS: Lungs are free of significant congestion or infiltrate. Heart is mildly enlarged. Pacemaker is in stable position. Osseous structures are intact. CONCLUSION: Mild cardiomegaly without evidence of significant airspace disease or acute congestion. Stable pacemaker. Rex Khan MD on August 27, 2016 at 14:07 Board Certified Radiologist. This report was verified electronically.
[2016-08-27 14:37] VITALS: BP 196/83; PULSE 62; RESP 20; O2SAT 98
--- NOTE | 2016-08-27 15:46 | HHI.HP ---
[facility] Service Family Medicine Primary Care Physician Javier Dill MD Admission Diagnosis Diagnoses: International Travel<30 Days: No Contact w/Intl Traveler<30days: No Known Affected Area: No History of Present Illness Patient is a 66-year-old female with past medical history significant for hypertension, pacemaker placement, hypothyroidism, type 2 diabetes, seizure disorder presenting due to low Sodium. She had labs drawn yesterday and her sodium was noted to be low at 121. She reports that her sodium is checked monthly and she has had issues with low sodium in the past, no cause has been identified. Last month her sodium level was within normal limits. She denies any changes in medications, fluid intake, output over the past month. She reports feeling more confused and has been having difficulty with short-term memory and finding words. She had a pacemaker placed on June 08. She has had no issues with her pacemaker over the past month. She denies any recent seizures and has not had a seizure within the past year. She reports that overall she feels well and is at her baseline. (Lew Sanders MD R2) Review of Systems Constitutional: DENIES: Fever, Chills Eyes: COMPLAINS OF: Blurred vision Ears, nose, mouth, throat: DENIES: Vertigo Respiratory: COMPLAINS OF: Shortness of breath Cardiovascular: COMPLAINS OF: Chest pain (very brief, occasional) Gastrointestinal: DENIES: Abdominal pain Genitourinary: DENIES: Dysuria Musculoskeletal: DENIES: Muscle aches Integumentary: DENIES: Rash Neurologic: COMPLAINS OF: Headache (stable) (Lew Sanders MD R2) Past Family Social History Past Medical History Diabetes Hypertension Hyperlipidemia CVA Asthma Benign Meningioma 1999 with recurrance 2001 (13 mo later) UTI w/hospitalization Oct 2011 Past Surgical History Pacemaker placement Hysterectomy with bilateral oophorectomy Right total knee replacement Meningioma removal Right ureteral stent Reported Medications Reported Meds & Active Scripts Active Lantus Solostar Pen Inj (Insulin Glargine) 300 Unit/3 Ml Pen 20 Units SQ At night Soma (Carisoprodol) 350 Mg Tab 350 Mg PO TID PRN Lortab (Hydrocodone-Acetaminophen) 10-325 Mg Tab 1 Tab PO Q4H PRN 1-2 three times a day for pain Novolog Inj (Insulin Aspart) 1,000 Unit/10 Ml Vial 2-12 Units SQ ACHS As directed by sliding scale. Restoril (Temazepam) 15 Mg Cap 15 Mg PO HS Gabapentin 400 Mg Cap 800 Cap PO TID 2 tabs (800ng) three times daily Ventolin Hfa 18 GM Inh (Albuterol Sulfate) 90 Mcg/Act Aer 2 Puff INH Q6H PRN Lasix (Furosemide) 40 Mg Tab 40 Mg PO DAILY Linzess (Linaclotide) 145 Mcg Cap 145 Mcg PO DAILY Carbamazepine 200 Mg Tab 400 Mg PO TID Levothyroxine (Levothyroxine Sodium) 50 Mcg Tab 50 Mcg PO DAILY Crestor (Rosuvastatin Calcium) 40 Mg Tab 40 Mg PO HS Glimepiride 1 Mg Tab 2 Tab PO BID Take with breakfast or first main meal Reported Pioglitazone (Pioglitazone HCl) 30 Mg Tab 30 Mg PO DAILY Trazodone HCl 150 Mg Tablet 150 Mg PO HS Liothyronine (Liothyronine Sodium) 5 Mcg Tab 5 Mcg PO HS Diclofenac Sodium DR (Diclofenac Sodium) 75 Mg Tabdr 75 Mg PO BID Lisinopril 20 Mg Tab 20 Mg PO DAILY Omeprazole 40 Mg Cap 40 Mg PO DAILY Creon (Amylase/Lipase/Protease) 24,000-76,000-120,000 Units Cap 1 Cap PO TID ( Lew Sanders MD R2) Allergies: Coded Allergies: Adhesives (Verified Allergy, Severe, skin pealing, 08/04/16) Aspirin (Verified Allergy, Severe, HIVES, 08/04/16) Clonidine (Verified Allergy, Severe, Psychosis. Leg edema, , 08/04/16) "MAKES ME FEEL LOOPY" Compazine (Verified Allergy, Severe, b/p drop, 08/04/16) Coumadin (Verified Allergy, Severe, PT DOES NOT KNOW REACTION, 08/04/16) Erythromycin (Verified Allergy, Severe, 08/04/16) Keflex (Verified Allergy, Severe, Nausea/Vomiting, 08/27/16) Mobic (Verified Allergy, Severe, 08/27/16) PT STATES SHE CAN'T TAKE NSAIDS Morphine (Verified Allergy, Severe, Hallucinations, 08/27/16) Nonsteroidal Anti-Inflammatory Agts (Verified Allergy, Severe, 08/27/16) Percocet (Verified Allergy, Severe, Hallucinations, 08/27/16) Tetracycline (Verified Allergy, Severe, UNKNOWN REACTION PER PT, 08/27/16) Theophylline (Verified Allergy, Severe, Nausea/Vomiting, 08/27/16) Amoxicillin (Verified Allergy, Intermediate, ITCHING, 08/27/16) Formaldehyde (Verified Allergy, Unknown, not specifically related., ) Antivert (Verified Adverse Reaction, Severe, Nausea/Vomiting,dizzy, ) Cipro (Verified Adverse Reaction, Severe, Nausea/Vomiting, 08/27/16) Effexor (Verified Adverse Reaction, Severe, All the SE, 08/27/16) Glucophage (Verified Adverse Reaction, Severe, Got hypoglycemic and passed out x 2. Dr MAULIK Ridley , 08/27/16) advised her never to take again. Lipitor (Verified Adverse Reaction, Severe, numbness of both legs. , 08/27) Promethazine (Verified Adverse Reaction, Severe, low blood pressure, ) by history according to patient. Uncoded Allergies: NICKEL (Allergy, Severe, RASH, 08/31/13) swelling Ice (Adverse Reaction, Severe, Severe muscle spasms and cramps, 08/31/13) Active Ordered Medications Inpatient Medications Acetaminophen (Tylenol) 650 mg Q4H PRN PO TEMP > 100.4; Start 08/27/16 at 16:45 Acetaminophen/ Hydrocodone Bitart (Randolph 10-325 Mg) 1 tab Q4H PRN PO PAIN SCALE 1 TO 10 Last administered on 08/27/16 20:06; Start 08/27/16 at 17:15 Albuterol Sulfate (Ventolin Hfa Inh) 2 puff Q6H PRN INH SHORTNESS OF BREATH; Start 08/27/16 at 17:15 Amylase/Lipase/ Protease (Creon 24-76-120) 1 cap TID PO ; Start 08/27/16 at 18: 00 Atorvastatin Calcium (Lipitor) 80 mg HS PO ; Start 08/27/16 at 21:00 Carbamazepine (TEGretol) 400 mg TID PO Last administered on 08/27/16 22:34; Start 08/27/16 at 20:00 Carisoprodol (Soma) 350 mg TID PRN PO SPASM; Start 08/27/16 at 17:15 Clonidine (Catapres) 0.1 mg Q6H PRN PO SBP> OR = 180, DBP> OR = 100; Start at 17:30 Dextrose (D50w (Vial) Inj) 50 ml UNSCH PRN IV HYPOGLYCEMIA-SEE COMMENTS; Start 08/27/16 at 18:15 Diclofenac Sodium (Voltaren Dr) 75 mg BID PO ; Start 08/27/16 at 21:00 Gabapentin (Neurontin) 800 mg TID PO Last administered on 08/27/16 20:05; Start 08/27/16 at 20:00 Glucagon (Glucagon Inj) 1 mg UNSCH PRN OTHER HYPOGLYCEMIA-SEE COMMENTS; Start 08/27/16 at 18:15 Hydralazine HCl (Apresoline) 10 mg Q6HR PRN PO SBP>160, DBP>90 Last administered on 08/27/16 20:06; Start 08/27/16 at 17:30 Insulin Aspart (NovoLOG SUPPLEMENTAL SCALE) 1 ACHS SLIDING SCALE SQ ; Start at 21:00 Levothyroxine Sodium (Synthroid) 50 mcg DAILY@06 PO ; Start 08/28/16 at 06:00 Liothyronine Sodium (Cytomel) 5 mcg HS PO ; Start 08/27/16 at 21:00 Naloxone HCl (Narcan Inj) 0.4 mg UNSCH PRN IV SEE LABEL COMMENTS; Start at 16:45 Nitrofurantoin Macrocrystals (Macrobid) 100 mg BIDPC PO Last administered on 20:05; Start 08/27/16 at 20:00 Ondansetron HCl (Zofran Inj) 4 mg Q6H PRN IVP NAUSEA OR VOMITING; Start at 16:45 Pantoprazole Sodium (Protonix) 40 mg DAILY PO ; Start 08/28/16 at 09:00 Patient Own Medication PT OWN MED: LINZ... DAILY PO ; Start 08/28/16 at 09:00; Status Future Hold Senna/Docusate Sodium (Arpita-Colace) 1 tab BID PO ; Start 08/27/16 at 21:00 Sodium Chloride (NS 1000 ml Inj) 1,000 ml @ 999 mls/hr BOLUS ONCE IV Last administered on 08/27/16 13:07; Start 08/27/16 at 12:30; Stop 08/27/16 at 13:30 ; Status DC Sodium Chloride (NS Flush) 2 ml BID IV FLUSH Last administered on 08/27/16 21: 00; Start 08/27/16 at 21:00 Temazepam (Restoril) 15 mg HS PO Last administered on 08/27/16 22:23; Start at 21:00 Trazodone HCl (Desyrel) 150 mg HS PO Last administered on 08/27/16 22:23; Start 08/27/16 at 21:00 Family History CAD with 2 5way bypasses before DM 2 in mother Cancers: Fathers great aunt ovarian cancer. Mother of pancreatic cancer . Social History Marrital Status: x 3. Lost most recent over one year ago. 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 Currently disabled and just got her disability approved. Only took 4 mo. Tobacco: 2 mo of smoking in teens. Alcohol: Never Illicit drug use: none (Lew Sanders MD R2) Physical Exam Vital Signs Vital Signs Date Time Temp Pulse Resp B/P Pulse Ox O2 Delivery O2 Flow Rate FiO2 08/27/16 14:37 62 20 196/83 98 Room Air 08/27/16 11:14 98.2 65 20 172/72 98 Room Air Physical Exam GENERAL: This is a well-nourished, well-developed patient, in no acute distress. SKIN: No rashes, ecchymoses or lesions. Cool and dry. HEAD: Atraumatic. Normocephalic. EYES: Pupils equal round and reactive. Extraocular motions intact. No scleral icterus. No injection or drainage. ENT: Nose without bleeding, purulent drainage or septal hematoma. Throat without erythema, tonsillar hypertrophy or exudate. Uvula midline. Airway patent. NECK: Trachea midline. No JVD or lymphadenopathy. Supple, nontender, no meningeal signs. CARDIOVASCULAR: Regular rate and rhythm without murmurs, gallops, or rubs. Pacemaker present in left upper chest. RESPIRATORY: Clear to auscultation. Breath sounds equal bilaterally. No wheezes , rales, or rhonchi. GASTROINTESTINAL: Abdomen obese, soft, non-tender, nondistended. No palpable masses. No guarding. Healed scars from prior surgery. MUSCULOSKELETAL: Extremities without clubbing, cyanosis, or edema. No joint tenderness, effusion, or edema noted. No calf tenderness. Negative Homans sign bilaterally. NEUROLOGICAL: Awake and alert. Motor and sensory grossly within normal limits. Normal speech. Laboratory Laboratory Tests Test 08/27/16 08/27/16 11:45 12:45 White Blood Count 3.5 Red Blood Count 3.98 Hemoglobin 12.5 Hematocrit 37.7 Mean Corpuscular Volume 94.9 Mean Corpuscular Hemoglobin 31.3 Mean Corpuscular Hemoglobin 33.0 Concent Red Cell Distribution Width 13.6 Platelet Count 129 Mean Platelet Volume 6.8 Urine Color YELLOW Urine Turbidity CLOUDY Urine pH 5.5 Urine Specific [employer] [place] 1.017 Urine Protein TRACE Urine Glucose (UA) NEG Urine Ketones NEG Urine Occult Blood SMALL Urine Nitrite NEG Urine Bilirubin NEG Urine Urobilinogen LESS THAN 2.0 Urine Leukocyte Esterase LARGE Urine RBC 3 Urine WBC 21 Urine WBC Clumps RARE Urine Squamous Epithelial 9 Cells Urine Bacteria MANY Urine Hyaline Casts 4 Urine Mucus FEW Microscopic Urinalysis Comment CULTURE INDICATED Sodium Level 120 Potassium Level 5.3 Chloride Level 91 Carbon Dioxide Level 20.5 Anion Gap 9 Blood Urea Nitrogen 15 Creatinine 0.86 Estimat Glomerular Filtration 66 Rate Random Glucose 108 Calcium Level 8.4 Carbamazepine (Tegretol) Level 8.9 Magnesium Level 1.8 Date/Time Procedure Status Source Growth 08/27/16 11:45 Urine Culture Received Urine Clean Catch Pending (Lew Sanders MD R2) Result Diagram: 08/27/16 1145 08/27/16 1145 Assessment and Plan Assessment and Plan Patient is a 66-year-old female with past medical history significant for hypertension, pacemaker placement, hypothyroidism, type 2 diabetes, seizure disorder presenting due to hyponatremia, found to have a UTI. Code Status Full Discussed Condition With sdw Dr. Greenfield, Dr. Eid (Lew Sanders MD R2) Attending Attestation Patient seen and examined. Case reviewed and discussed with the resident team. Agree with plan of care as discussed with me and documented in the resident note. (Rossy Greenfield MD) Problem List: (1) Hyponatremia Status: Acute Plan: Sodium low at 120. Pt is asymptomatic. She reports being diagnosed with hyponatremia in the past, no cause has been identified. Low-sodium possibly due to excess water consumption. -Restrict fluid consumption -Hold BP medications that could interfere with sodium level, see below -Monitor with serial BMPs Q4hrs -Avoid rapid correction of sodium level: goal of about 9 meq/L over 24 hr period -Continue to monitor (2) UTI (urinary tract infection) Status: Acute Plan: UA with cloudy appearance, small occult blood. Large Leucocyte esterase. 21 WBCs, rare WBC clumps, few bacteria. Culture indicated. Pt with allergies to several antibiotics. -Will continue Macrobid 100mg po BID -Adjust antibiotic based on results of urine culture (3) DM (diabetes mellitus) Status: Chronic Plan: Patient with home insulin regimen of Lantus 20 units at night, additional sliding scale as needed. She checks her blood sugars 23 times per day. -Will start insulin detemir 10 units SQ HS -Low dose SSI -Adjust insulin as needed (4) HTN (hypertension) Status: Acute Plan: We'll hold home Lasix and lisinopril, resume once sodium level has normalized -Clonidine and hydralazine as needed (5) FEN/PPX Status: Acute Plan: Fluids: None, patient fluid restricted Electrolytes: C hyponatremia above, continue to monitor Nutrition: Diabetic diet, fluid restriction DVT PPX: Lovenox GI PPX: (Home meds) Protonix Chronic medical problems Hypothyroidism Continue home Synthroid and liothyronine Hyperlipidemia Continue home statin (Lew Sanders MD R2) Physician Certification 2 Midnight Certification Type: Admission for Inpatient Services Order for Inpatient Services The services are ordered in accordance with Medicare regulations or non- Medicare payer requirements, as applicable. In the case of services not specified as inpatient-only, they are appropriately provided as inpatient services in accordance with the 2-midnight benchmark. Estimated LOS (days): 2 2 days is the estimated time the patient will need to remain in the hospital, assuming treatment plan goals are met and no additional complications. Post-Hospital Plan: Home (Lew Sanders MD R2) Problem Qualifiers (1) UTI (urinary tract infection): Qualified Code: N30.01 - Acute cystitis with hematuria (2) DM (diabetes mellitus): Lew Sanders MD R2 Aug 27, 2016 15:46 Rossy Greenfield MD Aug 28, 2016 08:12
[2016-08-27] MEDS ORDERED: NALOXONE HCL 0.4 MG/ML AMP IV PRN (16:45)
[2016-08-27] MEDS ORDERED: SODIUM CHLORIDE 0.9% FLUSH 10 ML FLUSH IV FLUSH PRN (16:45)
[2016-08-27] MEDS ORDERED: ONDANSETRON HCL 4 MG/2 ML VIAL IVP PRN (16:45)
[2016-08-27] MEDS ORDERED: ACETAMINOPHEN 325 MG TAB PO PRN (16:45)
[2016-08-27 16:49] VITALS: BP 192/78; PULSE 61; RESP 16; O2SAT 98
[2016-08-27] MEDS ORDERED: ALBUTEROL SULFATE 90 MCG/ACT HFA 18 GM INHALER INH PRN (17:15)
[2016-08-27] MEDS ORDERED: CARISOPRODOL 350 MG TAB PO PRN (17:15)
--- NOTE | 2016-08-27 17:22 | HHI.FPPN ---
Subjective Remarks Patient seen, examined and discussed with Dr. Sanders. This is a 66-year-old female with multiple chronic medical problems who is here today at the request of her attending physician, Dr. Dill, because her sodium was noted to be 120. This has periodically happen to her over time, and she remains asymptomatic when her sodium is even this low. She actually feels better than usual today. She says she drinks 44 ounces of fluid daily. She has a very long list of medications to which she has had either an allergy or an adverse reaction. She got a pacemaker in May 2016 and subsequently had another hospitalization. Regarding her other physicians, she sees Dr. Gilmore for her kidneys and Dr. Ronny Sanders is her licensed appraiser. Please see history and physical examination for this hospitalization for additional past, family, social history and review of systems. As noted above, she reports no unusual symptoms that she relates to her low sodium except over time she has noticed herself to be a little more confused and forgetful. Objective Vitals Vital Signs Date Time Temp Pulse Resp B/P Pulse Ox O2 Delivery O2 Flow Rate FiO2 08/27/16 16:49 61 16 192/78 98 Room Air 08/27/16 14:37 62 20 196/83 98 Room Air 08/27/16 11:14 98.2 65 20 172/72 98 Room Air Result Diagram: 08/27/16 1145 08/27/16 1145 Other Results Laboratory Tests Test 08/27/16 11:45 White Blood Count 3.5 TH/MM3 Red Blood Count 3.98 MIL/MM3 Platelet Count 129 TH/MM3 Mean Platelet Volume 6.8 FL Urine Turbidity CLOUDY Urine Occult Blood SMALL Urine Leukocyte Esterase LARGE Urine WBC 21 /hpf Urine WBC Clumps RARE Urine Bacteria MANY /hpf Urine Mucus FEW /lpf Sodium Level 120 MEQ/L Potassium Level 5.3 MEQ/L Chloride Level 91 MEQ/L Carbon Dioxide Level 20.5 MEQ/L Estimat Glomerular Filtration 66 ML/MIN Rate Random Glucose 108 MG/DL Calcium Level 8.4 MG/DL Imaging Last Impressions Head CT 08/27/16 0000 Signed Impressions: Service Date/Time: August 13:31 - CONCLUSION: 1. Stable compared to previous examination. 2. Old areas of calcification along the anterior aspect of both temporal lobes. 3. Previous craniotomy on the right. Eder Hinojosa MD Chest X-Ray 08/27/16 0000 Signed Impressions: Service Date/Time: August 13:25 - CONCLUSION: Mild cardiomegaly without evidence of significant airspace disease or acute congestion. Stable pacemaker. Rex Khan MD Objective Remarks O. CONSTITUTIONAL/GEN: normally nourished, in NAD. EYES: conjunctiva normal, PERRLA, EOMI. sclerae nonicteric ENT: Mouth and pharynx normal. Mucous membranes are moist NECK: No thyromegaly LUNGS: clear A-P, respiratory effort is normal. CARDIOVASCULAR: Paced rhythm without murmur or gallop. No significant edema. GI/ABD: soft without masses, without organomegaly. Active bowel sounds : no CVA tenderness NEURO: No focal deficits. SKIN: color normal, no rashes noted. HEME/LYMPH: no bruising, petechia or significant adenopathy MUSC: back is normal in appearance. Extremities are normal in appearance. PSYCH/MENTAL STATUS: Alert and oriented x 3. A/P Assessment and Plan 66-year-old female with multiple medical problems here because her sodium was noted to be 120. Attending Attestation Patient seen and examined. Case reviewed and discussed with the resident team. Agree with plan of care as discussed with me and documented in the resident note. 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
[2016-08-27] MEDS ORDERED: cloNIDine HCL 0.1 MG TAB PO PRN (17:30)
[2016-08-27] MEDS: LIPASE/PROTEASE/AMYLASE (24,000/76,000/120,000) CAP PO SCH (18:00)
[2016-08-27] MEDS ORDERED: GLUCAGON 1 MG/ML VIAL OTHER PRN (18:15)
[2016-08-27] MEDS ORDERED: DEXTROSE 50% IN WATER 50 ML VIAL(D50) IV PRN (18:15)
[2016-08-27 18:38] VITALS: BP 197/80; PULSE 61; RESP 20; TEMP 98.2; O2SAT 98
[2016-08-27 19:52] LABS: BICARBONATE 26.1 MEQ/L (21.0-32.0); POTASSIUM 3.8 MEQ/L (3.5-5.1)
[2016-08-27] MEDS: GABAPENTIN 400 MG CAP PO SCH (20:05)
[2016-08-27] MEDS: NITROFURANTOIN MONOHYD MACROCR 100 MG CAP PO SCH (20:05)
[2016-08-27] MEDS: ACETAMINOPHEN/HYDROcodone 325 MG/10 MG TAB PO PRN (20:06)
[2016-08-27] MEDS: hydrALAZINE HCL 10 MG TAB PO PRN (20:06)
[2016-08-27] MEDS ORDERED: ATORVASTATIN 80 MG TAB PO SCH (21:00)
[2016-08-27] MEDS: INSULIN ASPART SUPPLEMENTAL SCALE SQ SCH (21:00)
[2016-08-27] MEDS: SODIUM CHLORIDE 0.9% FLUSH 10 ML FLUSH IV FLUSH SCH (21:00)
[2016-08-27] MEDS ORDERED: TEMAZEPAM 15 MG CAP PO SCH (21:00)
[2016-08-27] MEDS ORDERED: traZODone HCL 50 MG TAB PO SCH (21:00)
[2016-08-27] MEDS: DICLOFENAC SODIUM 75 MG DELAYED RELEASE TAB PO SCH (21:00)
[2016-08-27] MEDS: DOCUSATE SODIUM 50 MG/SENNA 8.6 MG TAB PO SCH (21:00)
[2016-08-27] MEDS ORDERED: LIOTHYRONINE SODIUM 5 MCG TAB PO SCH (21:00)
[2016-08-27 21:03] VITALS: O2SAT 99
[2016-08-27] MEDS: carBAMazepine 200 MG TAB PO SCH (22:34)
[2016-08-28 01:49] LABS: BICARBONATE 30.1 MEQ/L (21.0-32.0); POTASSIUM 3.9 MEQ/L (3.5-5.1)
[2016-08-28] MEDS: hydrALAZINE HCL 10 MG TAB PO PRN (02:00)
[2016-08-28 05:00] VITALS: BP 158/70; PULSE 59; RESP 18; TEMP 97.6; O2SAT 98
[2016-08-28] MEDS: INSULIN ASPART SUPPLEMENTAL SCALE SQ SCH ×2 (05:23→11:00)
[2016-08-28] MEDS ORDERED: LEVOTHYROXINE SODIUM 50 MCG TAB PO SCH (06:00)
[2016-08-28] MEDS: LIPASE/PROTEASE/AMYLASE (24,000/76,000/120,000) CAP PO SCH ×2 (08:04→12:05)
[2016-08-28] MEDS: DICLOFENAC SODIUM 75 MG DELAYED RELEASE TAB PO SCH (08:04)
[2016-08-28] MEDS: ACETAMINOPHEN/HYDROcodone 325 MG/10 MG TAB PO PRN (08:04)
[2016-08-28] MEDS: DOCUSATE SODIUM 50 MG/SENNA 8.6 MG TAB PO SCH (08:05)
[2016-08-28] MEDS: SODIUM CHLORIDE 0.9% FLUSH 10 ML FLUSH IV FLUSH SCH (08:06)
[2016-08-28] MEDS: GABAPENTIN 400 MG CAP PO SCH ×2 (08:06→12:06)
[2016-08-28] MEDS: carBAMazepine 200 MG TAB PO SCH ×2 (08:06→12:06)
[2016-08-28] MEDS: NITROFURANTOIN MONOHYD MACROCR 100 MG CAP PO SCH (08:06)
[2016-08-28 08:39] LABS: AUTOMATED NEUTROPHIL # 0.9 TH/MM3 (1.8-7.7); BASOPHIL % 1.1 % (0.0-2.0); EOSINOPHIL # 0.1 TH/MM3 (0-0.4); EOSINOPHIL % 5.5 % (0.0-4.0); HEMATOCRIT 31.6 % (35.0-46.0); LYMPH % 50.3 % (9.0-44.0); LYMPHOCYTE # 1.3 TH/MM3 (1.0-4.8); MEAN CELL VOLUME 90.3 FL (80.0-100.0); MEAN CORPUSCULAR HEMOGLOBIN 31.3 PG (27.0-34.0); MEAN CORPUSCULAR HGB CONC 34.6 % (32.0-36.0); MONO % 9.4 % (0.0-8.0); NEUT % 33.7 % (16.0-70.0); PLATELET COUNT 133 TH/MM3 (150-450); RED BLOOD COUNT 3.49 MIL/MM3 (4.00-5.30); WHITE BLOOD COUNT 2.6 TH/MM3 (4.0-11.0)
[2016-08-28 08:41] LABS: HEMO FLAGS AUTO DIFF
[2016-08-28] MEDS ORDERED: ENOXAPARIN SODIUM 40 MG/0.4 ML SYRINGE SQ SCH (09:00)
[2016-08-28] MEDS ORDERED: LINZESS 145 MCG PO SCH (09:00)
[2016-08-28] MEDS ORDERED: NON-FORMULARY DRUG (Linaclotide (Linzess) 145 MCG) PO SCH (09:00)
[2016-08-28] MEDS ORDERED: PANTOPRAZOLE SOD 40 MG DELAYED RELEASE TAB PO SCH (09:00)
[2016-08-28 09:01] LABS: ALT (GPT) 28 U/L (10-53); ANION GAP 7 MEQ/L (5-15); AST (GOT) 17 U/L (15-37); BICARBONATE 27.9 MEQ/L (21.0-32.0); BLOOD UREA NITROGEN 15 MG/DL (7-18); CHLORIDE 94 MEQ/L (98-107); POTASSIUM 3.9 MEQ/L (3.5-5.1); SODIUM (NA) 129 MEQ/L (136-145)
[2016-08-28 09:06] LABS: ALKALINE PHOSPHATASE 87 U/L (45-117); GLOMERULAR FILTRATION RATE 74 ML/MIN (>89); TOTAL BILIRUBIN ADULT 0.3 MG/DL (0.2-1.0)
[2016-08-28 09:22] VITALS: O2SAT 98
[2016-08-28 09:37] LABS: BANDS 1 % (0-6); BASOPHILS 3 % (0-2); EOSINOPHILS 4 % (0-4); NEUTROPHIL # MANUAL DIFF 1.2 TH/MM3 (1.8-7.7); PLATELET ESTIMATE SMEAR LOW (NORMAL); PLATELET MORPHOLOGY NORMAL (NORMAL); POLYS (SEG NEUTROPHILS) 47 % (16-70); WBC DIFF SAMPLE 100
[2016-08-28 09:38] LABS: SCAN/DIFF FINAL DIFF MANUAL
[2016-08-28] MEDS ORDERED: NITR100C4 PO (10:26)
--- NOTE | 2016-08-28 10:27 | HHI.DCPOC ---
Discharge Care Plan Diagnosis: (1) Hyponatremia Goals to Promote Your Health * To prevent worsening of your condition and complications * To maintain your health at the optimal level Directions to Meet Your Goals Take your medications as prescribed Follow your dietary instruction Follow activity as directed Keep your appointments as scheduled Take your immunizations and boosters as scheduled If your symptoms worsen call your PCP, if no PCP go to Urgent Care Center or Emergency Room Smoking is Dangerous to Your Health. Avoid second hand smoke Call the 24-hour hour crisis hotline for domestic abuse at Duarte Eid MD R1 Aug 28, 2016 10:27
--- NOTE | 2016-08-28 17:19 | HHI.FPPN ---
Subjective Remarks Patient seen and examined this morning by medical team. No acute events overnight with vital signs stable. During medical team's interview this morning patient has multiple complaints stating that she was given "too much antibiotic yesterday." However upon chart review she was dosed appropriately. This was explained to the patient verbally agreed. She also disagrees with the medical management of her home medications, however upon discussion of discharge she is agreeable to being discharged home with her home medications. She currently has no complaints and denies any fevers, chills, shortness of breath, chest pain, NVD, (Duarte Eid MD R1) Objective Vitals Vital Signs Date Time Temp Pulse Resp B/P Pulse Ox O2 Delivery O2 Flow Rate FiO2 08/28/16 09:22 98 21 08/28/16 09:22 Room Air 21 08/28/16 05:00 97.6 59 18 158/70 98 08/28/16 01:35 Room Air 08/27/16 21:03 99 08/27/16 18:38 98.2 61 20 197/80 98 Room Air I/O 08/27/16 08/27/16 08/27/16 08/28/16 08/28/16 08/28/16 07:00 15:00 23:00 07:00 15:00 23:00 Intake Total 220 ml 120 ml Balance 220 ml 120 ml Intake Oral 220 ml 120 ml # Voids 2 2 1 # Bowel Movements 1 0 (Duarte Eid MD R1) Result Diagram: 08/28/1671808/28/16718 Objective Remarks GENERAL: This is a well-nourished, well-developed patient, in no acute distress. SKIN: No rashes, ecchymoses or lesions. Cool and dry. HEENT: Atraumatic, normocephalic with EOMI. No JVD or LAD appreciated. CARDIOVASCULAR: Regular rate and rhythm without murmurs, gallops, or rubs. Pacemaker present in left upper chest. RESPIRATORY: Clear to auscultation. Breath sounds equal bilaterally. No wheezes , rales, or rhonchi. GASTROINTESTINAL: Abdomen obese, soft, non-tender, nondistended. No palpable masses. No guarding. Healed scars from prior surgery. MUSCULOSKELETAL: Extremities without clubbing, cyanosis, or edema. No joint tenderness, effusion, or edema noted. No calf tenderness. Negative Homans sign bilaterally. Healed scars on BL knees. NEUROLOGICAL: Awake and alert. Motor and sensory grossly within normal limits. Normal speech. (Duarte Eid MD R1) A/P Assessment and Plan Patient is a 66-year-old female with past medical history significant for hypertension, pacemaker placement, hypothyroidism, type 2 diabetes, seizure disorder presenting due to hyponatremia, found to have a UTI. Discharge Planning Patient to be discharged home today with Macrobid twice a day for 6 more days. ( Duarte Eid MD R1) Attending Attestation Patient seen and examined. Case reviewed and discussed with the resident team. Agree with plan of care as discussed with me and documented in the resident note. (Rossy Greenfield MD) Problem List: (1) Hyponatremia Status: Acute Plan: Sodium low at 120. Pt is asymptomatic. She reports being diagnosed with hyponatremia in the past, no cause has been identified. Low-sodium possibly due to excess water consumption. -Restrict fluid consumption -Hold BP medications that could interfere with sodium level, see below -Serial sodium: 120, 125, 128, 129 -Patient has remained asymptomatic and will be discharged home today. Follow-up BMP in 3-5 days (2) UTI (urinary tract infection) Status: Acute Plan: UA with cloudy appearance, small occult blood. Large Leucocyte esterase. 21 WBCs, rare WBC clumps, few bacteria. Culture indicated. Pt with allergies to several antibiotics. -Continue Macrobid 100mg po BID at discharge for 6 more days (7 total days of antibiotics) ( -Culture: Gram-negative darshan, ID to follow (3) DM (diabetes mellitus) Status: Chronic Plan: Patient with home insulin regimen of Lantus 20 units at night, additional sliding scale as needed. She checks her blood sugars 23 times per day. Patient to be discharged home on home diabetic medications (4) HTN (hypertension) Status: Acute Plan: Patient to be discharged home on home hypertensive medications (5) FEN/PPX Status: Acute Plan: Fluids: Patient educated on fluid restriction diet. Electrolytes: See hyponatremia above, continue to monitor Nutrition: Diabetic diet, fluid restriction DVT PPX: Lovenox, discontinued on discharge GI PPX: (Home meds) Protonix Chronic medical problems Hypothyroidism Continue home Synthroid and liothyronine Hyperlipidemia Continue home statin (Duarte Eid MD R1) Problem Qualifiers (1) UTI (urinary tract infection): Qualified Code: N30.01 - Acute cystitis with hematuria (2) DM (diabetes mellitus): Duarte Eid MD R1 Aug 28, 2016 17:19 Rossy Greenfield MD Aug 28, 2016 18:45
[2016-08-28] MEDS ORDERED: INSULIN DETEMIR 100 UNITS/ML VIAL SQ SCH (21:00)
--- NOTE | 2016-08-28 22:40 | EKG ---
Date Performed: 08/27/2016 Time Performed: 18:26:11 PTAGE: 66 years EKG: ELECTRONIC ATRIAL PACEMAKER ELECTRONIC VENTRICULAR PACEMAKER ABNORMAL RHYTHM ECG PREVIOUS TRACING : 08/27/2016 12.37 DOCTOR: Claudia Hopkins Interpretating Date/Time 08/28/2016 22:40:15
--- NOTE | 2016-08-28 22:53 | EKG ---
Date Performed: 08/27/2016 Time Performed: 12:37:43 PTAGE: 66 years EKG: ELECTRONIC ATRIAL PACEMAKER ELECTRONIC VENTRICULAR PACEMAKER ABNORMAL RHYTHM ECG PREVIOUS TRACING : 07/28/2016 13.39 DOCTOR: Claudia Hopkins Interpretating Date/Time 08/28/2016 22:53:23
[2016-09-01] MEDS ORDERED: REST15CA PO (08:27)
[2016-09-01] MEDS ORDERED: DIFL150T PO (11:29)
[2016-09-01] MEDS ORDERED: HYDR-3535 PO (11:31)
== END 2016-08-28 13:25 | disposition home or self-care (01) | DRG 641 ==
LOC: NEPC 11:11 → NEDA 15:38 → N04B 20:47
PROVIDERS: ADMIT Family Medicine; ATTEND Family Medicine
DX: E87.1 Hypo-osmolality and hyponatremia (principal); E11.22 Type 2 diabetes mellitus with diabetic chronic kidney disease; N39.0 Urinary tract infection, site not specified; I10 Essential (primary) hypertension; E87.5 Hyperkalemia; B96.20 Unspecified Escherichia coli [E. coli] as the cause of diseases classified elsewhere; F32.9 Major depressive disorder, single episode, unspecified; F41.9 Anxiety disorder, unspecified; M19.90 Unspecified osteoarthritis, unspecified site; M06.9 Rheumatoid arthritis, unspecified; M79.7 Fibromyalgia; J45.909 Unspecified asthma, uncomplicated; I12.9 Hypertensive chronic kidney disease with stage 1 through stage 4 chronic kidney disease, or unspecified chronic kidney disease; N18.2 Chronic kidney disease, stage 2 (mild); E03.9 Hypothyroidism, unspecified; G40.909 Epilepsy, unspecified, not intractable, without status epilepticus; Z95.0 Presence of cardiac pacemaker; Z79.4 Long term (current) use of insulin; Z86.73 Personal history of transient ischemic attack (TIA), and cerebral infarction without residual deficits
CPT/HCPCS: 36415; 70450; 71010; 80048; 80053; 80156; 81001; 82948; 83735; 85007; 85027; 87077; 87086; 87186; 93005; J1650; J7030

== ENCOUNTER → 2016-10-13 | Outpatient (CLI) | payer MEDICARE, OTHER ==
[~2016-10-13] MED LIST changes: +ALBUAER3 INH; -CARI350T20 PO; -CYTO5TAB PO; +DIFL150T PO; -ENOX60IN SQ; -INSU1INJ5 SQ; -LIDO5DIS35 TOPICAL; +LIOT5TAB3 PO; -MIRA33504 PO; +NITR100C4 PO; +NITR1CAP36 PO; +PIOG30TA4 PO; -TRAZ100T4 PO; +TRAZ1TAB45 PO
[2016-10-13 10:28] LABS: BACTERIA, URINE MANY /hpf; BLOOD, URINE TRACE (NEG); GLUCOSE,URINE NEG (NEG); HYALINE CAST, URINE 34 /lpf (RARE); KETONE, URINE NEG (NEG); MUCUS URINE FEW /lpf (OCC); NITRITE,URINE NEG (NEG); PH, URINE 5.5 (5.0-8.5); SQUAMOUS EPITHELIAL CELL URINE 42 /hpf (0-5); TRANSITIONAL EPI CELLS, URINE <1 /hpf; URINE COLOR YELLOW (YELLW/STRAW)
== END ==
LOC: CLAB 08:58
PROVIDERS: ATTEND Family Medicine
DX: N39.0 Urinary tract infection, site not specified (principal); B96.1 Klebsiella pneumoniae [K. pneumoniae] as the cause of diseases classified elsewhere
CPT/HCPCS: 81001; 87077; 87086; 87186

== ENCOUNTER 2016-10-26 20:46 | Inpatient (IN) | payer MEDICARE, OTHER ==
[~2016-10-26] VITALS: Ht 165.1 cm; Wt 120.3 kg
[2016-10-26 21:01] VITALS: BP 174/72; PULSE 70; RESP 23; TEMP 98.2; O2SAT 100
[2016-10-26] MEDS ORDERED: SODIUM CHLOR 0.9% 1000 ML INJ 1,000 ML IV ONE (21:22)
--- NOTE | 2016-10-26 21:28 | PD ---
HPI Chief Complaint: Fall Time Seen by Provider: 21:25 Travel History International Travel<30 days: No Contact w/Intl Traveler<30days: No Traveled to known affect area: No History of Present Illness HPI 66 YO F with PMH of HTN, DM presents to the ED via EMS for evaluation of left hip pain after unwitnessed fall at 207pm today. The patient states that she went to the bathroom today and the next thing she remembers is waking up staring at the floor. She states that she attempted to rise to standing but was unable. She states that after some time her friend knocked on the door and she called out for them to call 911. On presentation she complains of difficulties with concentration, right hip pain and nausea. She thinks today's event may be have been precipitated by a couple episodes of nausea and vomiting over the last few days. She attributes this to "eating some bad oriental food. " PFSH Past Medical History Hx Anticoagulant Therapy: Yes (LOVENOX) Anemia: Yes Arthritis: Yes (OA, RA, SA, FIBRO) Asthma: Yes Autoimmune Disease: No Blood Disorders: Yes (pt is on lovenox ) Anxiety: Yes Depression: Yes Heart Rhythm Problems: Yes (MURMUR) Cancer: No Cardiac Catheterization: No Cardiovascular Problems: Yes High Cholesterol: Yes Chemotherapy: No Chest Pain: No Congestive Heart Failure: No COPD: No Cerebrovascular Accident: Yes (CVA) Diabetes: Yes Diminished Hearing: No Deep Vein Thrombosis: Yes Endocrine: Yes Fibromyalgia: Yes Gastrointestinal Disorders: Yes (excessive gas,) GERD: No Genitourinary: No Hepatitis: No Hiatal Hernia: Yes Hypertension: Yes Immune Disorder: No Implanted Vascular Access Dvce: Yes Kidney Stones: No Musculoskeletal: Yes Neurologic: Yes (cva-residual none) Psychiatric: No Reproductive: Yes Respiratory: Yes (ASTHMA) Immunizations Current: Yes Migraines: No Pneumonia: Yes Radiation Therapy: No Renal Failure: No Seizures: Yes (AUGUST 2011) Sickle Cell Disease: No Sleep Apnea: No Thyroid Disease: No Ulcer: No Menopausal: Yes : 1 Para: 1 Dilation and Curettage (D&C): Yes (x4) Past Surgical History Abdominal Aneurysm Repair: No Abdominal Surgery: Yes ( ABDOMINAL TUMORS REMOVED) AICD: No Appendectomy: No Arteriovenous Shunt: No Cardiac Surgery: Yes (pacer) Cholecystectomy: Yes (1981) Coronary Artery Bypass Graft: No Coronary Stent: No Ear Surgery: No Endocrine Surgery: No Eye Surgery: No Genitourinary Surgery: Yes (R URETERAL STENT) Gynecologic Surgery: Yes (D&C X4, TOTAL HYSTERECTOMY, BILATERAL OOPHORECTOMY ) Hysterectomy: Yes (1971) Insulin Pump: No Joint Replacement: No Mastectomy: No Neurologic Surgery: Yes (BRAIN -- MENINGIOMA REMOVED 1999) Oral Surgery: Yes (TA) Pacemaker: No Prostatectomy: No Tonsillectomy: No Tympanostomy Tube: No Valve Replacement: No Other Surgery: Yes (filter placed for blood clots) Social History Alcohol Use: Yes (occasionally wine) Tobacco Use: No Substance Use: No Allergies-Medications (Allergen,Severity, Reaction): Coded Allergies: Adhesives (Verified Allergy, Severe, skin pealing, 10/13/16) Aspirin (Verified Allergy, Severe, HIVES, 10/13/16) Clonidine (Verified Allergy, Severe, Psychosis. Leg edema, , 10/13/16) "MAKES ME FEEL LOOPY" Compazine (Verified Allergy, Severe, b/p drop, 10/13/16) Coumadin (Verified Allergy, Severe, PT DOES NOT KNOW REACTION, 10/13/16) Erythromycin (Verified Allergy, Severe, 10/13/16) Keflex (Verified Allergy, Severe, Nausea/Vomiting, 10/13/16) Mobic (Verified Allergy, Severe, 10/13/16) PT STATES SHE CAN'T TAKE NSAIDS Morphine (Verified Allergy, Severe, Hallucinations, 10/13/16) Nonsteroidal Anti-Inflammatory Agts (Verified Allergy, Severe, 10/13/16) Percocet (Verified Allergy, Severe, Hallucinations, 10/13/16) Tetracycline (Verified Allergy, Severe, UNKNOWN REACTION PER PT, 10/13/16) Theophylline (Verified Allergy, Severe, Nausea/Vomiting, 10/13/16) Amoxicillin (Verified Allergy, Intermediate, ITCHING, 10/13/16) Formaldehyde (Verified Allergy, Unknown, not specifically related., 10/13/16 ) Antivert (Verified Adverse Reaction, Severe, Nausea/Vomiting,dizzy, 10/13/16 ) Cipro (Verified Adverse Reaction, Severe, Nausea/Vomiting, 10/13/16) Effexor (Verified Adverse Reaction, Severe, All the SE, 10/13/16) Glucophage (Verified Adverse Reaction, Severe, Got hypoglycemic and passed out x 2. Dr MAULIK Ridley , 10/13/16) advised her never to take again. Lipitor (Verified Adverse Reaction, Severe, numbness of both legs. , ) Promethazine (Verified Adverse Reaction, Severe, low blood pressure, ) by history according to patient. Uncoded Allergies: NICKEL (Allergy, Severe, RASH, 08/31/13) swelling Ice (Adverse Reaction, Severe, Severe muscle spasms and cramps, 08/31/13) Reported Meds & Prescriptions Reported Meds & Active Scripts Active Nitrofurantoin Macrocrystal 100 Mg Cap 100 Mg PO TID Lortab (Hydrocodone-Acetaminophen) 10-325 Mg Tab 1 Tab PO Q4H PRN 1-2 three times a day for pain Restoril (Temazepam) 15 Mg Cap 15 Mg PO HS Trazodone (Trazodone HCl) 150 Mg Tablet 150 Mg PO HS Proair Hfa 8.5 GM Inh (Albuterol Sulfate) 90 Mcg/Act Aer 2 Puff INH Q6H PRN 108 mcg/actuation Soma (Carisoprodol) 350 Mg Tab 350 Mg PO TID PRN Diflucan (Fluconazole) 150 Mg Tab 150 Mg PO ONCE Lantus Solostar Pen Inj (Insulin Glargine) 300 Unit/3 Ml Pen 20 Units SQ DAILY Novolog Inj (Insulin Aspart) 1,000 Unit/10 Ml Vial 2-12 Units SQ ACHS As directed by sliding scale. Gabapentin 400 Mg Cap 800 Cap PO TID 2 tabs (800ng) three times daily Ventolin Hfa 18 GM Inh (Albuterol Sulfate) 90 Mcg/Act Aer 2 Puff INH Q6H PRN Linzess (Linaclotide) 145 Mcg Cap 145 Mcg PO DAILY Carbamazepine 200 Mg Tab 400 Mg PO TID Levothyroxine (Levothyroxine Sodium) 50 Mcg Tab 50 Mcg PO DAILY Crestor (Rosuvastatin Calcium) 40 Mg Tab 40 Mg PO HS Glimepiride 1 Mg Tab 2 Tab PO BID Take with breakfast or first main meal Reported Pioglitazone (Pioglitazone HCl) 30 Mg Tab 30 Mg PO DAILY Liothyronine (Liothyronine Sodium) 5 Mcg Tab 5 Mcg PO HS Diclofenac Sodium DR (Diclofenac Sodium) 75 Mg Tabdr 75 Mg PO BID Lisinopril 20 Mg Tab 20 Mg PO DAILY Omeprazole 40 Mg Cap 40 Mg PO DAILY Creon (Amylase/Lipase/Protease) 24,000-76,000-120,000 Units Cap 1 Cap PO TID Review of Systems Except as stated in HPI: all other systems reviewed are Neg Physical Exam Narrative GENERAL: Obese white female in no acute distress. SKIN: Focused skin assessment warm/dry. Well-healed midline scar of the abdomen without signs of infection. HEAD: Normocephalic. Atraumatic. No tenderness palpation of the skull or facial bones. EYES: No scleral icterus. No injection or drainage. PERRLA.. EOMI. ENT: No hemotympanum. No malocclusion. NECK: Supple, trachea midline. No JVD or lymphadenopathy. CARDIOVASCULAR: Regular rate and rhythm without murmurs, gallops, or rubs. RESPIRATORY: Breath sounds clear and equal bilaterally. No accessory muscle use. GASTROINTESTINAL: Abdomen soft, non-tender, nondistended, protuberant. Active bowel sounds. Multiple small puncture wounds with surrounding ecchymosis. MUSCULOSKELETAL: No cyanosis, or edema. NEUROLOGICAL: Awake and alert. Cranial nerves II through XII intact. Motor and sensory grossly within normal limits. 4/5 muscle strength in all muscle groups. Normal speech. BACK: Nontender without obvious deformity. No CVA tenderness. Data Data Last Documented VS Vital Signs Date Time Temp Pulse Resp B/P Pulse Ox O2 Delivery O2 Flow Rate FiO2 10/26/16 22:25 20 10/26/16 22:00 70 148/65 98 Room Air 10/26/16 21:01 98.2 Orders Electrocardiogram (10/26/16 21:22) Complete Blood Count With Diff (10/26/16 21:22) Comprehensive Metabolic Panel (10/26/16 21:22) Magnesium (Mg) (10/26/16 21:22) Ckmb (Isoenzyme) Profile (10/26/16 21:22) Troponin I (10/26/16 21:22) Act Partial Throm Time (Ptt) (10/26/16 21:22) Prothrombin Time / Inr (Pt) (10/26/16 21:22) Urinalysis - C+S If Indicated (10/26/16 21:22) Chest, Single Ap (10/26/16 21:22) Ct Brain W/O Iv Contrast(Rout) (10/26/16 21:22) Ecg Monitoring (10/26/16 21:22) Iv Access Insert/Monitor (10/26/16 21:22) Oximetry (10/26/16 21:22) Sodium Chloride 0.9% Flush (Ns Flush) (10/26/16 21:30) Sodium Chlor 0.9% 1000 Ml Inj (Ns 1000 M (10/26/16 21:22) Hip, Uni(Ap&Lat) W Ap Pelvis (10/26/16 21:22) Ondansetron Inj (Zofran Inj) (10/26/16 21:30) Labs Laboratory Tests Test 10/26/16 21:45 White Blood Count 5.8 TH/MM3 Red Blood Count 3.93 MIL/MM3 Hemoglobin 12.4 GM/DL Hematocrit 34.4 % Mean Corpuscular Volume 87.6 FL Mean Corpuscular Hemoglobin 31.5 PG Mean Corpuscular Hemoglobin 36.0 % Concent Red Cell Distribution Width 12.9 % Platelet Count 184 TH/MM3 Mean Platelet Volume 6.8 FL Neutrophils (%) (Auto) 75.8 % Lymphocytes (%) (Auto) 13.6 % Monocytes (%) (Auto) 10.2 % Eosinophils (%) (Auto) 0.0 % Basophils (%) (Auto) 0.4 % Neutrophils # (Auto) 4.4 TH/MM3 Lymphocytes # (Auto) 0.8 TH/MM3 Monocytes # (Auto) 0.6 TH/MM3 Eosinophils # (Auto) 0.0 TH/MM3 Basophils # (Auto) 0.0 TH/MM3 CBC Comment AUTO DIFF Prothrombin Time 11.0 SEC Prothromb Time International 1.0 RATIO Ratio Activated Partial 26.5 SEC Thromboplast Time MDM Medical Decision Making Medical Screen Exam Complete: Yes Emergency Medical Condition: Yes Differential Diagnosis hypoglycemia versus dehydration versus metabolic derangement versus rhabdomyolysis versus UTI versus cardiogenic syncope versus ICH versus hip fracture versus closed head injury versus malingering versus other Narrative Course 66 YO F with PMH of HTN, DM presents to the ED via EMS for evaluation of left hip pain after unwitnessed fall at 207pm today. The patient states that she went to the bathroom and the next thing she remembers is waking up staring at the floor. She states that she attempted to rise to standing but was unable. He states that eventually a friend came by and called 911. On presentation she complains of difficulties with concentration, right hip pain and nausea. She thinks today's event may be have been precipitated by a couple episodes of nausea and vomiting over the last few days. She attributes this to "eating some bad oriental food." Vitals reviewed. Physical exam reveals an obese white female in no acute distress. There is no outward signs of trauma. No focal neuro deficits. No appreciable M/R/G. Chest CTAB. Active bowel sounds. No CVA tenderness. Mild tenderness to palpation of the right lateral hip. Palpable pulses in bilateral lower extremities. IV was established. Patient was administered a liter of normal saline and 4 mg Zofran. CBC: No anemia or leukocytosis. Coags: INR 1.1. EKG: Rate 70, paced rhythm. Normal axis. No acute ST changes. Reviewed by Dr. Bradshaw. CXR: No evidence of acute pulmonary disease. CT of the brain: No acute intracranial abnormality. X-ray right hip: Intact right hip. Patient is lying in bed, flipping through the channels watching television. She is a poor historian. She alternately complains of dizziness then denied that. She complains of headache then denies it. She is tangential and somewhat difficult to redirect. CMP, cardiac enzymes, UA pending. Disposition per Dr. Bradshaw. Josephine Guzman Oct 26, 2016 21:28
[2016-10-26] MEDS ORDERED: ONDANSETRON HCL 4 MG/2 ML VIAL IV PUSH ONE (21:30)
[2016-10-26] MEDS ORDERED: SODIUM CHLORIDE 0.9% FLUSH 10 ML FLUSH IVF PRN (21:30)
--- NOTE | 2016-10-26 21:50 | RADRPT ---
EXAM DATE/TIME: 10/26/2016 21:34 [facility] COMPARISON: CT ABDOMEN & PELVIS W CONTRAST, July 28, 2014, 20:00. INDICATIONS : Right hip pain, fell MEDICAL HISTORY : Stroke. Asthma SURGICAL HISTORY : Pacemaker. ENCOUNTER: Initial ACUITY: 1 day PAIN SCORE: 8/10 LOCATION: Right Hip FINDINGS: No fracture or subluxation of the right hip. There is mild osteoarthritis. CONCLUSION: Intact right hip. Magdaleno Lew MD on October 26, 2016 at 21:49 Board Certified Radiologist. This report was verified electronically.
--- NOTE | 2016-10-26 21:51 | RADRPT ---
EXAM DATE/TIME: 10/26/2016 21:37 [facility] COMPARISON: CHEST SINGLE AP, August 27, 2016, 13:25. INDICATIONS : Syncope MEDICAL HISTORY : Stroke. Asthma SURGICAL HISTORY : Pacemaker. ENCOUNTER: Initial ACUITY: 1 day PAIN SCORE: 0/10 LOCATION: chest FINDINGS: A single view of the chest demonstrates the lungs to be symmetrically aerated without evidence of mas s, infiltrate or effusion. The cardiomediastinal contours are unremarkable. Osseous structures are intact. Left subclavian transvenous pacer with 2 leads again noted. CONCLUSION: No evidence of acute cardiopulmonary disease. Magdaleno Lew MD on October 26, 2016 at 21:49 Board Certified Radiologist. This report was verified electronically.
[2016-10-26 22:00] VITALS: BP 148/65; PULSE 70; RESP 17; O2SAT 98
--- NOTE | 2016-10-26 22:05 | RADRPT ---
EXAM DATE/TIME: 10/26/2016 21:43 [facility] COMPARISON: CT BRAIN W/O CONTRAST, May 29, 2015, 17:42. CT BRAIN W/O CONTRAST, April 27, 2016, 17:37. CT B RAIN W/O CONTRAST, August 27, 2016, 13:31. INDICATIONS : Dizziness, patient found on floor for unknown amount of time. RADIATION DOSE: 50.02 CTDIvol (mGy) MEDICAL HISTORY : Stroke. Seizures. Deep venous thrombosis.Hypertension. SURGICAL HISTORY : Craniotomy. ENCOUNTER: Initial ACUITY: 1 day PAIN SCALE: 0/10 LOCATION: cranial TECHNIQUE: Multiple contiguous axial images were obtained of the head. Using automated exposure control and adj ustment of the mA and/or kV according to patient size, radiation dose was kept as low as reasonably a chievable to obtain optimal diagnostic quality images. DICOM format image data is available electro nically for review and comparison. FINDINGS: No intracranial hemorrhage or hematoma. No evidence of an acute ischemic event. No midline shift. 2 cm partly calcified and most likely extra-axial mass seen of the right temporal lobe. There has bee n previous right temporal craniotomy. 1 cm old lacunar infarct of the left basal ganglia again noted. CONCLUSION: 1. No acute intracranial abnormality. 2. Right temporal lobe partly calcified mass is not significantly changed. Remote right temporal cran iotomy. 3. Old left basal ganglia lacunar infarct. Magdaleno Lew MD on October 26, 2016 at 22:00 Board Certified Radiologist. This report was verified electronically.
[2016-10-26 22:25] VITALS: RESP 20
[2016-10-26 22:35] LABS: AUTOMATED NEUTROPHIL # 4.4 TH/MM3 (1.8-7.7); BASOPHIL % 0.4 % (0.0-2.0); HEMATOCRIT 34.4 % (35.0-46.0); LYMPH % 13.6 % (9.0-44.0); LYMPHOCYTE # 0.8 TH/MM3 (1.0-4.8); MEAN CELL VOLUME 87.6 FL (80.0-100.0); MEAN CORPUSCULAR HEMOGLOBIN 31.5 PG (27.0-34.0); MONO % 10.2 % (0.0-8.0); NEUT % 75.8 % (16.0-70.0); PLATELET COUNT 184 TH/MM3 (150-450); RED BLOOD COUNT 3.93 MIL/MM3 (4.00-5.30); RED CELL DISTRIBUTION WIDTH 12.9 % (11.6-17.2); WHITE BLOOD COUNT 5.8 TH/MM3 (4.0-11.0)
[2016-10-26 22:37] LABS: HEMO FLAGS AUTO DIFF
[2016-10-26 22:50] LABS: APTT (PATIENT) 26.5 SEC (24.3-30.1)
[2016-10-26 23:09] LABS: PLATELET ESTIMATE SMEAR NORMAL (NORMAL); PLATELET MORPHOLOGY NORMAL (NORMAL); SCAN/DIFF AUTO DIFF CONFIRMED
[2016-10-26 23:25] LABS: ALKALINE PHOSPHATASE 91 U/L (45-117); ALT (GPT) 41 U/L (10-53); ANION GAP 16 MEQ/L (5-15); AST (GOT) 43 U/L (15-37); BICARBONATE 29.5 MEQ/L (21.0-32.0); BLOOD UREA NITROGEN 21 MG/DL (7-18); CHLORIDE 70 MEQ/L (98-107); CREATINE KINASE 815 U/L (26-192); GLOMERULAR FILTRATION RATE 33 ML/MIN (>89); MAGNESIUM 1.7 MG/DL (1.5-2.5); POTASSIUM 3.7 MEQ/L (3.5-5.1); TOTAL BILIRUBIN ADULT 0.6 MG/DL (0.2-1.0)
[2016-10-26 23:45] LABS: SODIUM (NA) 115 MEQ/L (136-145)
[2016-10-27] VITALS (20 sets, daily range): BP systolic 126–194; BP diastolic 57–80; PULSE 59–70; RESP 13–31; TEMP 98.1–98.8; O2SAT 96–99
[2016-10-27 00:14] LABS: CKMB 14.2 NG/ML (0.5-3.6)
--- NOTE | 2016-10-27 00:27 | PD ---
Data Data Last Documented VS Vital Signs Date Time Temp Pulse Resp B/P Pulse Ox O2 Delivery O2 Flow Rate FiO2 10/26/16 22:25 20 10/26/16 22:00 70 148/65 98 Room Air 10/26/16 21:01 98.2 Orders Electrocardiogram (10/26/16 21:22) Complete Blood Count With Diff (10/26/16 21:22) Comprehensive Metabolic Panel (10/26/16 21:22) Magnesium (Mg) (10/26/16 21:22) Ckmb (Isoenzyme) Profile (10/26/16 21:22) Troponin I (10/26/16 21:22) Act Partial Throm Time (Ptt) (10/26/16:) Prothrombin Time / Inr (Pt) (10/26/16:) Urinalysis - C+S If Indicated (10/26/16 21:22) Chest, Single Ap (10/26/16 21:22) Ct Brain W/O Iv Contrast(Rout) (10/26/16 21:22) Ecg Monitoring (10/26/16:) Iv Access Insert/Monitor (10/26/16 21:22) Oximetry (10/26/16 21:22) Sodium Chloride 0.9% Flush (Ns Flush) (10/26/16 21:30) Sodium Chlor 0.9% 1000 Ml Inj (Ns 1000 M (10/26/16 21:22) Hip, Uni(Ap&Lat) W Ap Pelvis (10/26/16 21:22) Ondansetron Inj (Zofran Inj) (10/26/16 21:30) CKMB (10/26/16 21:45) CKMB% (10/26/16 21:45) Sodium Chlor 0.9% 1... W/Sodium Chloride (10/27/16 00:00) B-Type Natriuretic Peptide (10/27/16 00:03) Creatinine, Random Urine (10/27/16 00:03) Sodium, Random Urine (10/27/16 00:03) Osmolality, Urine (10/27/16 00:03) Osmolality,Serum (10/27/16 00:03) Alcohol (Ethanol) (10/27/16 00:03) Tylenol (Acetaminophen) (10/27/16 00:03) Salicylates (Aspirin) (10/27/16 00:03) Admit Order (Ed Use Only) (10/27/16 00:08) Labs Laboratory Tests Test 10/26/16 21:45 White Blood Count 5.8 TH/MM3 Red Blood Count 3.93 MIL/MM3 Hemoglobin 12.4 GM/DL Hematocrit 34.4 % Mean Corpuscular Volume 87.6 FL Mean Corpuscular Hemoglobin 31.5 PG Mean Corpuscular Hemoglobin 36.0 % Concent Red Cell Distribution Width 12.9 % Platelet Count 184 TH/MM3 Mean Platelet Volume 6.8 FL Neutrophils (%) (Auto) 75.8 % Lymphocytes (%) (Auto) 13.6 % Monocytes (%) (Auto) 10.2 % Eosinophils (%) (Auto) 0.0 % Basophils (%) (Auto) 0.4 % Neutrophils # (Auto) 4.4 TH/MM3 Lymphocytes # (Auto) 0.8 TH/MM3 Monocytes # (Auto) 0.6 TH/MM3 Eosinophils # (Auto) 0.0 TH/MM3 Basophils # (Auto) 0.0 TH/MM3 CBC Comment AUTO DIFF Differential Comment AUTO DIFF CONFIRMED Platelet Estimate NORMAL Platelet Morphology Comment NORMAL Red Cell Morphology Comment NORMAL Prothrombin Time 11.0 SEC Prothromb Time International 1.0 RATIO Ratio Activated Partial 26.5 SEC Thromboplast Time Sodium Level 115 MEQ/L Potassium Level 3.7 MEQ/L Chloride Level 70 MEQ/L Carbon Dioxide Level 29.5 MEQ/L Anion Gap 16 MEQ/L Blood Urea Nitrogen 21 MG/DL Creatinine 1.58 MG/DL Estimat Glomerular Filtration 33 ML/MIN Rate Random Glucose 217 MG/DL Calcium Level 9.6 MG/DL Magnesium Level 1.7 MG/DL Total Bilirubin 0.6 MG/DL Aspartate Amino Transf 43 U/L (AST/SGOT) Alanine Aminotransferase 41 U/L (ALT/SGPT) Alkaline Phosphatase 91 U/L Total Creatine Kinase 815 U/L Creatine Kinase MB 14.2 NG/ML Creatine Kinase MB % 1.7 % Troponin I 0.06 NG/ML Total Protein 7.9 GM/DL Albumin 4.7 GM/DL [facility] Medical Record Reviewed: Yes Supervised Visit with LITTLE: No Interpretation(s) Last Impressions Hip and Pelvis X-Ray 10/26/162121 Signed Impressions: Service Date/Time: Wednesday, October 26, 2016 21:34 - CONCLUSION: Intact right hip. Magdaleno Lew MD Head CT 10/26/162121 Signed Impressions: Service Date/Time: Wednesday, October 26, 2016 21:43 - CONCLUSION: 1. No acute intracranial abnormality. 2. Right temporal lobe partly calcified mass is not significantly changed. Remote right temporal craniotomy. 3. Old left basal ganglia lacunar infarct. Magdaleno Lew MD Chest X-Ray 10/26/162121 Signed Impressions: Service Date/Time: Wednesday, October 26, 2016 21:37 - CONCLUSION: No evidence of acute cardiopulmonary disease. Magdaleno Lew MD Narrative Course During the course of the patients emergency department visit, the patients history, examination, and differential diagnosis were reviewed with the patient. The patient had IV access obtained and blood work sent for analysis. The patient was placed on a monitor and storage bin tender with oximetry and blood pressure monitoring. The patient was initially evaluated by Josephine, the physician bricklayer's assistant. Please see her complete history and physical. The patient's case was checked out to me at the conclusion of her shift for review of the symptoms and current history. The patient was initially provided normal saline a 1 L IV fluid bolus, Zofran 4 mg IV. The patients laboratory studies were reviewed and remarkable for a white count of 5.8, hemoglobin 12.4, platelets 184 with 75.8 neutrophils, monocytes 10.2, CMP is remarkable for a sodium of 115, chloride 70, anion gap 16, BUN 21, creatinine 1.58, glucose 217, AST 43, CPK 8:15, MB percent 1.7, troponin I is 0.06, BNP is 79, PT 11, PTT 26.5. Radiology studies were reviewed and remarkable for a chest x-ray that shows no evidence of acute cardiopulmonary disease, CT scan of the brain shows no acute intracranial abnormality, right temporal lobe partly calcified mass that is not significantly changed, remote right temporal craniotomy, old left basal ganglia lacunar infarct. Right hip x-ray shows no acute evidence of fracture or dislocation. I reviewed the electronic medical record reveals that the patient has had a history of hyponatremia in the past. The patient will have her hyponatremia gently corrected. The patient was placed on 2% normal saline. The patients results were discussed with the patient, including the plan of care. I explained that further testing and/ or monitoring is indicated based on the patients history, examination, and/ or laboratory findings. Therefore, I recommended admission for additional evaluation. The patient expressed understanding and was agreeable with this plan. The patient was admitted to the hospital in guarded condition and sent to a bed under the care of the product safety officer service. Physician Communication Physician Communication The patient was discussed with Dr. Cummings who did agree to admit the patient for further evaluation and treatment at this time. Diagnosis Primary Impression: Altered mental status Qualified Code: R41.0 - Disorientation Additional Impression: Hyponatremia Admitting Information Admitting Physician Requests: Valentina Hale MD Oct 27, 2016 00:27
[2016-10-27] MEDS: SODIUM CHLORIDE 23.4% INJ 188 MEQ in SODIUM CHLOR 0.9% 1000 ML INJ 1,000 ML IV SCH ×2 (00:40→21:14)
[2016-10-27] MEDS ORDERED: ACETAMINOPHEN 325 MG TAB PO PRN (01:00)
[2016-10-27] MEDS ORDERED: CHLORHEXIDINE GLUCONATE 2 % 1 PACK (2 CLOTHS) TOP PRN (01:00)
[2016-10-27] MEDS ORDERED: MAGNESIUM OXIDE 400 MG TAB PO PRN (01:00)
[2016-10-27] MEDS ORDERED: POTASSIUM CHLOR 40 MEQ PREMIX 100 ML IV PRN ×2 (01:00)
[2016-10-27] MEDS ORDERED: POTASSIUM CHLOR 20 MEQ PREMIX 100 ML IV PRN ×2 (01:00)
[2016-10-27] MEDS ORDERED: POTASSIUM PHOSPHATE MONOBASIC 500 MG TAB PO/TUBE PRN (01:00)
[2016-10-27] MEDS ORDERED: SODIUM PHOSPHATE INJ 30 MMOL in SODIUM CHLOR 0.9% 250 ML INJ 240 ML IV PRN (01:00)
[2016-10-27] MEDS ORDERED: MAGNESIUM SULFATE INJ 2 GM in SODIUM CHLORIDE 0.9% INJ 96 ML IV PRN (01:00)
[2016-10-27] MEDS ORDERED: DEXTROSE 50% IN WATER 50 ML VIAL(D50) IV PUSH PRN (01:00)
[2016-10-27] MEDS ORDERED: RESP: ALBUTEROL 2.5 MG/IPRATROPIUM 0.5 MG NEB (PRN) INH (01:00)
[2016-10-27] MEDS ORDERED: FUROSEMIDE 40 MG/4 ML VIAL IV PUSH ONE (01:00)
[2016-10-27] MEDS ORDERED: POTASSIUM PHOSPHATE INJ 30 MMOL in SODIUM CHLOR 0.9% 250 ML INJ 250 ML IV PRN (01:00)
[2016-10-27] MEDS ORDERED: ONDANSETRON HCL 4 MG/2 ML VIAL IV PRN (01:00)
[2016-10-27] MEDS ORDERED: MAGNESIUM SULFATE INJ 4 GM in SODIUM CHLORIDE 0.9% INJ 92 ML IV PRN (01:00)
[2016-10-27] MEDS ORDERED: MISCELLANEOUS NURSING INFORMATION XX SCH (01:00)
[2016-10-27] MEDS ORDERED: POTASSIUM PHOSPHATE MONOBASIC 500 MG TAB PO PRN (01:00)
--- NOTE | 2016-10-27 01:05 | HHI.HP ---
HPI Service Critical Care Medicine Primary Care Physician Javier Dill MD Admission Diagnosis Syncope versus sz, hyponatremia Diagnosis: Chief Complaint: syncope Travel History International Travel<30 Days: No Contact w/Intl Traveler <30 Da: No Traveled to Known Affected Are: No History of Present Illness This is a 66yF with h/o DM, HTN who presented to the ED after she awoke and found herself on the floor. She states she must have passed out because she doesn't remember how she got there. She states she used to pass out a lot before she got a pacemaker placed, and then that stopped. She endorses nausea, but no other symptoms. she reports being in her usual state of health up to now. she denies urinary incontinence with this episode. denies chest pain, shortness of breath, constipation, diarrhea, BRBPR, hematemesis. denies headache. denies any muscle aches or pains. denies bruising. Does state she think the nausea is from eating "bad food at a restaurant today". Remainder of the ROS is negative unless otherwise documented. In the ER, laboratory data is significant for a sodium of 115, mildly elevated Cr 1.5. Review of Systems Constitutional: DENIES: Fatigue, Fever, Chills Respiratory: DENIES: Sputum production, Shortness of breath Cardiovascular: COMPLAINS OF: Syncope, Lower Extremity Edema, DENIES: Chest pain, Palpitations, Dyspnea on Exertion Gastrointestinal: COMPLAINS OF: Nausea, DENIES: Abdominal pain, Black stools, Bloody stools, Constipation, Diarrhea, Vomiting Neurologic: DENIES: Abnormal gait, Headache, Localized weakness, Paresthesias, Seizures Past Family Social History Allergies: Coded Allergies: Adhesives (Verified Allergy, Severe, skin pealing, 10/13/16) Aspirin (Verified Allergy, Severe, HIVES, 10/13/16) Clonidine (Verified Allergy, Severe, Psychosis. Leg edema, , 10/13/16) "MAKES ME FEEL LOOPY" Compazine (Verified Allergy, Severe, b/p drop, 10/13/16) Coumadin (Verified Allergy, Severe, PT DOES NOT KNOW REACTION, 10/13/16) Erythromycin (Verified Allergy, Severe, 10/13/16) Keflex (Verified Allergy, Severe, Nausea/Vomiting, 10/13/16) Mobic (Verified Allergy, Severe, 10/13/16) PT STATES SHE CAN'T TAKE NSAIDS Morphine (Verified Allergy, Severe, Hallucinations, 10/13/16) Nonsteroidal Anti-Inflammatory Agts (Verified Allergy, Severe, 10/13/16) Percocet (Verified Allergy, Severe, Hallucinations, 10/13/16) Tetracycline (Verified Allergy, Severe, UNKNOWN REACTION PER PT, 10/13/16) Theophylline (Verified Allergy, Severe, Nausea/Vomiting, 10/13/16) Amoxicillin (Verified Allergy, Intermediate, ITCHING, 10/13/16) Formaldehyde (Verified Allergy, Unknown, not specifically related., 10/13/16 ) Antivert (Verified Adverse Reaction, Severe, Nausea/Vomiting,dizzy, 10/13/16 ) Cipro (Verified Adverse Reaction, Severe, Nausea/Vomiting, 10/13/16) Effexor (Verified Adverse Reaction, Severe, All the SE, 10/13/16) Glucophage (Verified Adverse Reaction, Severe, Got hypoglycemic and passed out x 2. Dr MAULIK Ridley , 10/13/16) advised her never to take again. Lipitor (Verified Adverse Reaction, Severe, numbness of both legs. , ) Promethazine (Verified Adverse Reaction, Severe, low blood pressure, ) by history according to patient. 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 Past Surgical History Abdominal tumor removed Cholecystectomy in 1981 Pacemaker right ureteral stent D&C x 4 Total hysterectomy 1971 Bilateral oophorectomy Neurologic Surgery: Yes (BRAIN -- MENINGIOMA REMOVED 1999) Oral Surgery: Yes (TA) Pacemaker: No Prostatectomy: No Tonsillectomy: No Tympanostomy Tube: No Valve Replacement: No Other Surgery: Yes (filter placed for blood clots) Reported Medications Nitrofurantoin Macrocrystal 100 Mg Cap 100 Mg PO TID Lortab (Hydrocodone-Acetaminophen) 10-325 Mg Tab 1 Tab PO Q4H PRN 1-2 three times a day for pain Restoril (Temazepam) 15 Mg Cap 15 Mg PO HS Trazodone (Trazodone HCl) 150 Mg Tablet 150 Mg PO HS Proair Hfa 8.5 GM Inh (Albuterol Sulfate) 90 Mcg/Act Aer 2 Puff INH Q6H PRN 108 mcg/actuation Soma (Carisoprodol) 350 Mg Tab 350 Mg PO TID PRN Diflucan (Fluconazole) 150 Mg Tab 150 Mg PO ONCE Lantus Solostar Pen Inj (Insulin Glargine) 300 Unit/3 Ml Pen 20 Units SQ DAILY Novolog Inj (Insulin Aspart) 1,000 Unit/10 Ml Vial 2-12 Units SQ ACHS As directed by sliding scale. Gabapentin 400 Mg Cap 800 Cap PO TID 2 tabs (800ng) three times daily Ventolin Hfa 18 GM Inh (Albuterol Sulfate) 90 Mcg/Act Aer 2 Puff INH Q6H PRN Linzess (Linaclotide) 145 Mcg Cap 145 Mcg PO DAILY Carbamazepine 200 Mg Tab 400 Mg PO TID Levothyroxine (Levothyroxine Sodium) 50 Mcg Tab 50 Mcg PO DAILY Crestor (Rosuvastatin Calcium) 40 Mg Tab 40 Mg PO HS Glimepiride 1 Mg Tab 2 Tab PO BID Take with breakfast or first main meal Pioglitazone (Pioglitazone HCl) 30 Mg Tab 30 Mg PO DAILY Liothyronine (Liothyronine Sodium) 5 Mcg Tab 5 Mcg PO HS Diclofenac Sodium DR (Diclofenac Sodium) 75 Mg Tabdr 75 Mg PO BID Lisinopril 20 Mg Tab 20 Mg PO DAILY Omeprazole 40 Mg Cap 40 Mg PO DAILY Creon (Amylase/Lipase/Protease) 24,000-76,000-120,000 Units Cap 1 Cap PO TID Active Ordered Medications See MAR Family History reviewed and found to be noncontributory to her acute illness Social History occasional wine use. denies tob, doa. Physical Exam Vital Signs Vital Signs Date Time Temp Pulse Resp B/P Pulse Ox O2 Delivery O2 Flow Rate FiO2 10/27/16 00:51 69 18 128/80 98 Room Air 10/26/16 22:25 20 10/26/16 22:00 70 17 148/65 98 Room Air 10/26/16 21:08 100 Room Air 10/26/16 21:01 98.2 70 23 174/72 100 Physical Exam GENERAL: Obese middle-aged female, lying in bed. HEENT: Normocephalic. Atraumatic. Pupils equal, round, reactive, conjugate. Mucous membranes are moist NECK: Trachea is midline. There is no JVD. CHEST: Equal chest rise. Clear to auscultation. CARDIOVASCULAR: Normal rate, regular rhythm. Sinus by telemetry ABDOMEN: Soft, nontender, nondistended. No guarding. MUSCULOSKELETAL: Pulses 2+. No peripheral edema. NEUROLOGICAL: RASS 0. CAM -. GCS 15. no gross focal deficits. Laboratory Laboratory Tests Test 10/26/16 21:45 White Blood Count 5.8 Red Blood Count 3.93 Hemoglobin 12.4 Hematocrit 34.4 Mean Corpuscular Volume 87.6 Mean Corpuscular Hemoglobin 31.5 Mean Corpuscular Hemoglobin 36.0 Concent Red Cell Distribution Width 12.9 Platelet Count 184 Mean Platelet Volume 6.8 Neutrophils (%) (Auto) 75.8 Lymphocytes (%) (Auto) 13.6 Monocytes (%) (Auto) 10.2 Eosinophils (%) (Auto) 0.0 Basophils (%) (Auto) 0.4 Neutrophils # (Auto) 4.4 Lymphocytes # (Auto) 0.8 Monocytes # (Auto) 0.6 Eosinophils # (Auto) 0.0 Basophils # (Auto) 0.0 CBC Comment AUTO DIFF Differential Comment AUTO DIFF CONFIRMED Platelet Estimate NORMAL Platelet Morphology Comment NORMAL Red Cell Morphology Comment NORMAL Prothrombin Time 11.0 Prothromb Time International 1.0 Ratio Activated Partial 26.5 Thromboplast Time Sodium Level 115 Potassium Level 3.7 Chloride Level 70 Carbon Dioxide Level 29.5 Anion Gap 16 Blood Urea Nitrogen 21 Creatinine 1.58 Estimat Glomerular Filtration 33 Rate Random Glucose 217 Calcium Level 9.6 Magnesium Level 1.7 Total Bilirubin 0.6 Aspartate Amino Transf 43 (AST/SGOT) Alanine Aminotransferase 41 (ALT/SGPT) Alkaline Phosphatase 91 Total Creatine Kinase 815 Creatine Kinase MB 14.2 Creatine Kinase MB % 1.7 Troponin I 0.06 Total Protein 7.9 Albumin 4.7 Result Diagram: 10/26/16214410/26/162144 Imaging Last Impressions Hip and Pelvis X-Ray 10/26/162121 Signed Impressions: Service Date/Time: Wednesday, October 26, 2016 21:34 - CONCLUSION: Intact right hip. Magdaleno Lew MD Head CT 10/26/162121 Signed Impressions: Service Date/Time: Wednesday, October 26, 2016 21:43 - CONCLUSION: 1. No acute intracranial abnormality. 2. Right temporal lobe partly calcified mass is not significantly changed. Remote right temporal craniotomy. 3. Old left basal ganglia lacunar infarct. Magdaleno Lew MD Chest X-Ray 10/26/162121 Signed Impressions: Service Date/Time: Wednesday, October 26, 2016 21:37 - CONCLUSION: No evidence of acute cardiopulmonary disease. Magdaleno Lew MD Assessment and Plan Assessment and Plan Assessment: 66yF with 1 episode of altered mental status and syncope and found to have symptomatic hyponatremia. By history, she may have had a seizure secondary to her hyponatremia, or altered mentation secondary to this. Agree with gentle 2% nacl and frequent sodium checks. certainly in past admissions she has had chronic hyponatremia, but had always prior been asymptomatic. given she has symptomatic hyponatremia, we must be more aggressive at treating this, despite the risk of demyelination. Remains critically ill at this time. Plan: Symptomatic Hyponatremia -- 2% nacl at 20 mL/hr -- q6h sodiums -- urine osms, serum osms, urine sodium -- lasix 40mg iv x 1. -- EEG -- frequent neuro checks -- goal raise Na 8-10 meq/24h. -- likely hypervolemic hyponatremia given her history of volume overload and on fluid restriction by cardiology. will await final urine studies. history of DVT -- per hematology, have been decreasing her lovenox dosage given frequent falls -- will place on prophylactic dose lovenox 40mg SQ q24h until complete work-up is done. with her frequent outpatient falls, she may not be a good candidate for anticoagulation Admit to ICU. This patient remains critically ill with one or more organ systems which are or may become a threat to life. I have spent in excess of 38 minutes discontinuously in the care and management of this patient. This time is exclusive of procedures, and includes, but is not limited to, evaluation of the patient, review of the medical record, discussions with family, consultants, nursing staff, or respiratory therapy, and documentation in the medical record. Teja Cummings MD Oct 27, 2016 01:05
[2016-10-27 01:26] LABS: ALCOHOL LESS THAN 3 MG/DL (0-5)
[2016-10-27 01:30] LABS: ACETAMINOPHEN LESS THAN 2.0 MCG/ML (10.0-30.0)
[2016-10-27] MEDS: CHLORHEXIDINE GLUCONATE 2 % 1 PACK (2 CLOTHS) TOP SCH (03:55)
[2016-10-27] MEDS ORDERED: hydrALAZINE HCL 20 MG/ML VIAL ONE (04:14)
[2016-10-27] MEDS: INSULIN NovoLIN REGULAR SUPPLEMENTAL SCALE SQ SCH ×3 (06:00→18:00)
[2016-10-27] MEDS: ENOXAPARIN SODIUM 40 MG/0.4 ML SYRINGE SQ SCH (06:31)
--- NOTE | 2016-10-27 07:37 | EKG ---
Date Performed: 10/26/2016 Time Performed: 22:33:38 PTAGE: 66 years EKG: ELECTRONIC VENTRICULAR PACEMAKER ABNORMAL RHYTHM ECG Compared to the PREVIOUS TRACING Atrial pacing was previously seen. PREVIOUS TRACIN08/27/2016 18.26 DOCTOR: Obie Galdamez Interpretating Date/Time 10/27/2016 07:36:32
[2016-10-27] MEDS: SODIUM CHLOR 0.9% 1000 ML INJ 1,000 ML IV SCH ×2 (09:00→21:17)
[2016-10-27] MEDS: DOCUSATE SODIUM 50 MG/SENNA 8.6 MG TAB PO SCH ×2 (09:00→21:13)
[2016-10-27] MEDS ORDERED: SODIUM CHLORID 0.9% 500 ML INJ 500 ML IV ONE (09:00)
[2016-10-27] MEDS: PANTOPRAZOLE SOD 40 MG DELAYED RELEASE TAB PO SCH (09:43)
[2016-10-27 14:21] LABS: BACTERIA, URINE MANY /hpf; BLOOD, URINE SMALL (NEG); COMMENT (UR) CULTURE INDICATED; CULTURE IF INDICATED CULTURE INDICATED; GLUCOSE,URINE NEG (NEG); KETONE, URINE NEG (NEG); NITRITE,URINE NEG (NEG); PH, URINE 5.5 (5.0-8.5); SQUAMOUS EPITHELIAL CELL URINE 45 /hpf (0-5); URINE COLOR YELLOW (YELLW/STRAW)
[2016-10-27 14:51] LABS: ALKALINE PHOSPHATASE 82 U/L (45-117); ALT (GPT) 40 U/L (10-53); ANION GAP 13 MEQ/L (5-15); AST (GOT) 58 U/L (15-37); BICARBONATE 29.2 MEQ/L (21.0-32.0); BLOOD UREA NITROGEN 25 MG/DL (7-18); CHLORIDE 78 MEQ/L (98-107); GLOMERULAR FILTRATION RATE 44 ML/MIN (>89); POTASSIUM 3.5 MEQ/L (3.5-5.1); TOTAL BILIRUBIN ADULT 0.5 MG/DL (0.2-1.0)
[2016-10-27 15:14] LABS: SODIUM (NA) 120 MEQ/L (136-145)
--- NOTE | 2016-10-27 15:40 | RADRPT ---
EXAM DATE/TIME: 10/27/2016 14:08 [facility] COMPARISON: US LEG BILATERAL VENOUS DOPPLER, January 04, 2012, 9:45. INDICATIONS : Bilateral leg pain. MEDICAL HISTORY : Hypothyroidism. Hypercholesterolemia. Hernia, hiatal. CVA. Brain meningioma. DVT. Heart murmur. HTN. Asthma. Pneumonia. Dyspnea. Fibromyalgia. UTI. Diabetes. Rheumatoid arthritis. Anemia. Depression. A nxiety. MRSA. Anticoagulant therapy, Lovenox. SURGICAL HISTORY : Tonsillectomy.Pacemaker. Cholecystectomy.Adenoidectomy. Right temporal crainotomy. Abdominal tumors r emoved. Colectomy. D&C x4. Total hysterectomy. Bilateral oophorectomy. Right ureteral stent. Bilater al knee replacements. Filter placed for blood clots. Blood transfusions. ENCOUNTER: Subsequent ACUITY: 1 day PAIN SCORE: 0/10 LOCATION: Bilateral legs. TECHNIQUE: Venous ultrasound of the left and right leg was performed from the inguinal ligament to the proximal calf. Real-time, color Doppler and spectral tracing, compression and augmentation techniques were us ed. FINDINGS: RIGHT LEG: There is normal compressibility of the deep venous system from the inguinal region to the proximal ca lf. No echogenic clot is seen in the lumen of the common femoral, femoral, popliteal, and posterior tibial veins. There is a normal response of the venous system to proximal and distal augmentation an d respiration. LEFT LEG: There is normal compressibility of the deep venous system from the inguinal region to the proximal ca lf. No echogenic clot is seen in the lumen of the common femoral, femoral, popliteal, and posterior tibial veins. There is a normal response of the venous system to proximal and distal augmentation an d respiration. CONCLUSION: No DVT. Magdaleno Orozco MD on October 27, 2016 at 15:38 Board Certified Radiologist. This report was verified electronically.
--- NOTE | 2016-10-27 17:57 | MG ---
cc: NICOLE SOTO Lab No: [id number] Date: 10/27/16 Age: Sex: F Race: Hyperventilation is not performed. Right temporal calcified mass, right temporal craniotomy after a fall. Insulin Zofran A diffuse 7 Hz slowing is noted. Some bifrontal delta slowing is noted at epoch 27. Other delta slowing and theta slowing of low-frequency is seen but are all symmetric. I do not see a breach rhythm. Photic stimulation was performed without significant posterior driving. The patient was noted to be snoring briefly throughout the recording. Hyperventilation was not performed. IMPRESSION Diffuse slowing consistent with a mild to moderate diffuse encephalopathy. No focal abnormality was noted. No seizure activity was seen. No breach rhythm was noted. No right hemisphere abnormalities are noted. MD MAYRA Corral/ /5:29 PM /5:50 PM
[2016-10-28] VITALS (23 sets, daily range): BP systolic 125–182; BP diastolic 56–72; PULSE 59–66; RESP 13–32; TEMP 97.8–98.4; O2SAT 93–99
[2016-10-28] MEDS: CHLORHEXIDINE GLUCONATE 2 % 1 PACK (2 CLOTHS) TOP SCH (04:00)
[2016-10-28] MEDS: ENOXAPARIN SODIUM 40 MG/0.4 ML SYRINGE SQ SCH (04:36)
[2016-10-28] MEDS: INSULIN NovoLIN REGULAR SUPPLEMENTAL SCALE SQ SCH ×4 (05:18→18:09)
[2016-10-28 05:53] LABS: BICARBONATE 27.6 MEQ/L (21.0-32.0); POTASSIUM 3.4 MEQ/L (3.5-5.1)
--- NOTE | 2016-10-28 08:12 | PD.CONS ---
HPI Service CV Consult Requested By Reason for Consult syncope Primary Care Physician Javier Dill MD History of Present Illness Here with h/o symptomatic bradycardia s/p PPM, HTN and chronic hyponatremia admitted for a syncopal episode vs seizure. On admission her sodium was 115. She has had Na replacement and now her sodium is 129. She denies any chest pain , shortness of breath or palpitations. Review of Systems Consitutional: DENIES: Fatigue, Fever, Chills, Weight gain, Weight loss Eyes: DENIES: Amaurosis Fugax, Change in vision HEENT: DENIES: Lightheadedness, Change in hearing Respiratory: DENIES: See HPI, Cough, Snoring, Shortness of breath, Wheezing, Sputum production Cardiovascular: COMPLAINS OF: See HPI Gastrointestinal: DENIES: Nausea, Vomiting, Change in bowel habits, Reflux, Bloody stools, Melena Genitourinary: DENIES: Urinary incontinence, Difficulty voiding Integumentary: DENIES: Rash Neurologic: DENIES: Tingling or numbness, Memory problems, Poor Balance, Stroke symptoms Musculoskeletal: DENIES: Joint pain, Muscle pain, Limited range of motion, Back pain Psychiatric: DENIES: Anxiety, Depression, Sleep disturbances Hematologic: DENIES: Bruising tendencies, Bleeding tendencies Endocrine: DENIES: Weight gain, Weight loss, Thyroid disease Past Family Social History Allergies: Coded Allergies: acetaminophen (Unverified Allergy, Severe, Hallucinations, 10/27/16) adhesive (Unverified Allergy, Severe, skin pealing, 10/27/16) aspirin (Unverified Allergy, Severe, HIVES, 10/27/16) cephalexin (Unverified Allergy, Severe, Nausea/Vomiting, 10/27/16) clonidine (Unverified Allergy, Severe, Psychosis. Leg edema, , 10/27/16) "MAKES ME FEEL LOOPY" diclofenac (Unverified Allergy, Severe, 10/27/16) doxycycline (Unverified Allergy, Severe, UNKNOWN REACTION PER PT, 10/27/16) erythromycin base (Unverified Allergy, Severe, 10/27/16) etodolac (Unverified Allergy, Severe, 10/27/16) flurbiprofen (Unverified Allergy, Severe, 10/27/16) ibuprofen (Unverified Allergy, Severe, 10/27/16) indomethacin (Unverified Allergy, Severe, 10/27/16) ketoprofen (Unverified Allergy, Severe, 10/27/16) ketorolac (Unverified Allergy, Severe, 10/27/16) meloxicam (Unverified Allergy, Severe, 10/27/16) PT STATES SHE CAN'T TAKE NSAIDS minocycline (Unverified Allergy, Severe, UNKNOWN REACTION PER PT, 10/27/16) morphine (Unverified Allergy, Severe, Hallucinations, 10/27/16) naproxen (Unverified Allergy, Severe, 10/27/16) oxaprozin (Unverified Allergy, Severe, 10/27/16) oxycodone (Unverified Allergy, Severe, Hallucinations, 10/27/16) prochlorperazine (Unverified Allergy, Severe, b/p drop, 10/27/16) theophylline (Unverified Allergy, Severe, Nausea/Vomiting, 10/27/16) tigecycline (Unverified Allergy, Severe, UNKNOWN REACTION PER PT, 10/27/16) warfarin (Unverified Allergy, Severe, PT DOES NOT KNOW REACTION, 10/27/16) amoxicillin (Unverified Allergy, Intermediate, ITCHING, 10/27/16) formaldehyde (Unverified Allergy, Unknown, not specifically related., 10/27) atorvastatin (Unverified Adverse Reaction, Severe, numbness of both legs. , 10/27/16) ciprofloxacin (Unverified Adverse Reaction, Severe, Nausea/Vomiting, ) meclizine (Unverified Adverse Reaction, Severe, Nausea/Vomiting,dizzy, ) metformin (Unverified Adverse Reaction, Severe, Got hypoglycemic and passed out x 2. Dr MAULIK Ridley , 10/27/16) advised her never to take again. promethazine (Unverified Adverse Reaction, Severe, low blood pressure, ) by history according to patient. venlafaxine (Unverified Adverse Reaction, Severe, All the SE, 10/27/16) Uncoded Allergies: NICKEL (Allergy, Severe, RASH, 08/31/13) swelling Ice (Adverse Reaction, Severe, Severe muscle spasms and cramps, 08/31/13) Past Medical History see HPI Diabetes Hyperlipidemia CVA Asthma Benign Meningioma 1999 with recurrance 2001 (13 mo later) UTI w/hospitalization Oct 2011 Past Surgical History see HPI Hysterectomy with bilateral oophorectomy Right total knee replacement Meningioma removal Right ureteral stent Reported Medications Reported Meds & Active Scripts Active Nitrofurantoin Macrocrystal 100 Mg Cap 100 Mg PO TID Lortab (Hydrocodone-Acetaminophen) 10-325 Mg Tab 1 Tab PO Q4H PRN 1-2 three times a day for pain Restoril (Temazepam) 15 Mg Cap 15 Mg PO HS Trazodone (Trazodone HCl) 150 Mg Tablet 150 Mg PO HS Proair Hfa 8.5 GM Inh (Albuterol Sulfate) 90 Mcg/Act Aer 2 Puff INH Q6H PRN 108 mcg/actuation Soma (Carisoprodol) 350 Mg Tab 350 Mg PO TID PRN Diflucan (Fluconazole) 150 Mg Tab 150 Mg PO ONCE Lantus Solostar Pen Inj (Insulin Glargine) 300 Unit/3 Ml Pen 20 Units SQ DAILY Novolog Inj (Insulin Aspart) 1,000 Unit/10 Ml Vial 2-12 Units SQ ACHS As directed by sliding scale. Gabapentin 400 Mg Cap 800 Cap PO TID 2 tabs (800ng) three times daily Ventolin Hfa 18 GM Inh (Albuterol Sulfate) 90 Mcg/Act Aer 2 Puff INH Q6H PRN Linzess (Linaclotide) 145 Mcg Cap 145 Mcg PO DAILY Carbamazepine 200 Mg Tab 400 Mg PO TID Levothyroxine (Levothyroxine Sodium) 50 Mcg Tab 50 Mcg PO DAILY Crestor (Rosuvastatin Calcium) 40 Mg Tab 40 Mg PO HS Glimepiride 1 Mg Tab 2 Tab PO BID Take with breakfast or first main meal Reported Pioglitazone (Pioglitazone HCl) 30 Mg Tab 30 Mg PO DAILY Liothyronine (Liothyronine Sodium) 5 Mcg Tab 5 Mcg PO HS Diclofenac Sodium DR (Diclofenac Sodium) 75 Mg Tabdr 75 Mg PO BID Lisinopril 20 Mg Tab 20 Mg PO DAILY Omeprazole 40 Mg Cap 40 Mg PO DAILY Creon (Amylase/Lipase/Protease) 24,000-76,000-120,000 Units Cap 1 Cap PO TID Active Ordered Medications Current Medications Medications (Trade) Dose Ordered Sig/Tamara Route Start Time Stop Time Status Last Admin (NS Flush) 2 ml UNSCH PRN IVF 10/26/16 21:30 Magnesium Oxide 800 mg 800 mg UNSCH PRN PO 8/15/17 01:00 Magnesium Sulfate 4 gm/Sodium Chloride 100 ml @ 50 mls/hr UNSCH PRN IV 10/27/16 01:00 Magnesium Sulfate 2 gm/Sodium Chloride 100 ml @ 50 mls/hr UNSCH PRN IV 10/27/16 01:00 Potassium Chloride 100 ml @ 50 mls/hr Q2H PRN IV 10/27/16 01:00 Potassium Chloride 100 ml @ 50 mls/hr Q2H PRN IV 10/27/16 01:00 Potassium Chloride 100 ml @ 50 mls/hr Q2H PRN IV 10/27/16 01:00 (KCl 40 Meq Premix Inj) 100 ml @ 25 mls/hr UNSCH PRN IV 10/27/16 01:00 (K-Phos) 2,000 mg Q4H PRN PO 10/27/16 01:00 Potassium Phosphate 2000 mg 2,000 mg UNSCH PRN PO/TUBE 10/27/16 01:00 Potassium Phosphate 30 mmol/ Sodium Chloride 260 ml @ 42 mls/hr UNSCH PRN IV 10/27/16 01:00 (Sodium Phosphate Inj/NS 250 ml Inj) 250 ml @ 42 mls/hr UNSCH PRN IV 10/27/16 01:00 (D50w (Vial) Inj) 25 ml UNSCH PRN IV PUSH 10/27/16 01:00 (NovoLIN R SUPPLEMENTAL SCALE) 1 Q6HR SQ 10/27/16 06:00 10/28/16 00:00 (Tylenol) 650 mg Q6H PRN PO 10/27/16 01:00 (Protonix) 40 mg DAILY PO 10/27/16 09:00 10/27/16 09:43 (Zofran Inj) 4 mg Q6H PRN IV 10/27/16 01:00 (Lovenox Inj) 40 mg Q24H SQ 10/27/16 06:00 10/28/16 04:36 Miscellaneous Information 1 [id number] XX 10/27/16 01:00 10/27/16 09:42 (Chlorhexidine 2% Cloth) 3 pack Taper DAILY@04 TOP 10/27/16 04:00 10/23/17 03:59 10/28/16 04:00 (Chlorhexidine 2% Cloth) 3 pack UNSCH PRN TOP 10/27/16 01:00 Senna/Docusate Sodium 1 tab 1 tab BID PO 10/27/16 09:00 10/27/16 21:13 (NS 1000 ml Inj) 1,000 ml @ 75 mls/hr [id number] IV 10/27/16 09:00 10/27/16 21:17 Family History noncontributory Social History denies smoking, alcohol or substance abuse Physical Exam Vital Signs Vital Signs Date Time Temp Pulse Resp B/P Pulse Ox O2 Delivery O2 Flow Rate FiO2 10/28/16 06:00 61 10/28/16 04:00 98.1 60 19 156/69 97 10/28/16 04:00 60 10/28/16 02:00 60 10/28/16 00:00 59 10/28/16 00:00 98.3 60 20 142/63 93 10/27/16 22:00 64 10/27/16 20:00 64 10/27/16 20:00 98.1 64 20 160/72 97 10/27/16 18:00 59 10/27/16 17:00 60 10/27/16 16:00 64 10/27/16 16:00 98.8 64 25 130/60 98 10/27/16 15:00 65 10/27/16 15:00 65 19 126/57 99 10/27/16 14:00 61 10/27/16 13:00 68 10/27/16 12:00 64 10/27/16 12:00 98.7 64 17 151/67 96 10/27/16 11:00 63 10/27/16 10:00 63 10/27/16 09:38 64 10/27/16 09:00 69 21 186/77 10/27/16 09:00 69 Physical Exam GENERAL: Well-nourished, well-developed patient in no apparent distress. NECK: No JVD. No carotid bruit. CARDIOVASCULAR: Regular rate and rhythm. S1/S2 no murmur, rub, or gallop. RESPIRATORY: No accessory muscle use. Clear to auscultation. Breath sounds equal bilaterally. GASTROINTESTINAL: Abdomen soft, non-tender, nondistended. MUSCULOSKELETAL: Extremities without clubbing, cyanosis, or edema. Laboratory Laboratory Tests Test 10/27/16 10/27/16 10/27/16 10/28/16 12:30 12:54 23:12 04:37 Urine Color YELLOW Urine Turbidity CLOUDY Urine pH 5.5 Urine Specific [place] 1.012 Urine Protein 30 Urine Glucose (UA) NEG Urine Ketones NEG Urine Occult Blood SMALL Urine Nitrite NEG Urine Bilirubin NEG Urine Urobilinogen LESS THAN 2.0 Urine Leukocyte Esterase LARGE Urine RBC 4 Urine WBC Urine WBC Clumps MANY Urine Squamous Epithelial 45 Cells Urine Bacteria MANY Microscopic Urinalysis Comment CULTURE INDICATED Urine Osmolality 194 Urine Random Creatinine 44.5 Urine Random Sodium 8 Sodium Level 120 126 129 Potassium Level 3.5 3.4 Chloride Level 78 90 Carbon Dioxide Level 29.2 27.6 Anion Gap 13 11 Blood Urea Nitrogen 25 22 Creatinine 1.22 0.99 Estimat Glomerular Filtration 44 56 Rate Random Glucose 152 131 Calcium Level 9.3 8.8 Total Bilirubin 0.5 Aspartate Amino Transf 58 (AST/SGOT) Alanine Aminotransferase 40 (ALT/SGPT) Alkaline Phosphatase 82 Troponin I 0.07 0.05 Total Protein 7.3 Albumin 4.3 Date/Time Procedure Status Source Growth 10/27/16 12:30 Urine Culture Received Urine Clean Catch Pending Result Diagram: 10/26/16 2145 10/28/16 0437 Assessment and Plan Problem List: (1) HTN (hypertension) (2) Atypical syncope Assessment and Plan We will ask pacemaker rep to interrogate her pacemaker and go from there. HTN - restart lisinopril 20 mg daily Oni Carpenter Oct 28, 2016 08:12
[2016-10-28] MEDS: LISINOPRIL 20 MG TAB PO SCH (08:30)
[2016-10-28] MEDS: PANTOPRAZOLE SOD 40 MG DELAYED RELEASE TAB PO SCH (08:30)
[2016-10-28] MEDS: DOCUSATE SODIUM 50 MG/SENNA 8.6 MG TAB PO SCH ×2 (08:30→20:59)
--- NOTE | 2016-10-28 11:24 | HHI.HP ---
[facility] Service Family Medicine Primary Care Physician Javier Dill MD Admission Diagnosis Syncope versus sz, hyponatremia Diagnoses: International Travel<30 Days: No Contact w/Intl Traveler<30days: No Known Affected Area: No History of Present Illness Ms. Flaherty is a 66 y/o F with a history of hyponatremia presented on 10/27 after a reported syncopal episode. She reports that she had 2 days of GI symptoms following a "food poisoning" with nausea and vomiting that lasted for 2 days. During the syncopal episode episode she states that she was "unconscious, on the floor for approximately 5 hours, before calling for help." She was able to summon neighbor who called 911 and transferred her to the emergency department. She was found to have a sodium of 1:15 with a CK of 815 and creatinine of 1.58. She was directly admitted to ICU under the care of Dr. Sandoval, supervisor counseling and guidance. She was placed on hypertonic saline and responded appropriately. Today her sodium is 129 without altered mentation and is being transferred from the supervisor counseling and guidance service to the family medicine service. She currently reports that she feels "terrible" from not receiving her regular medications. She endorses extremity pain. Upon further review appears to be chronic. Otherwise she has no complaints and denies any fevers, chills, shortness breath, chest pain, NVD, abdominal pain, or calf tenderness. Review of Systems Constitutional: DENIES: Fever Eyes: DENIES: Blurred vision Ears, nose, mouth, throat: DENIES: Throat pain, Running Nose Respiratory: DENIES: Cough, Shortness of breath Cardiovascular: DENIES: Chest pain Genitourinary: DENIES: Dysuria Musculoskeletal: COMPLAINS OF: Joint pain, Muscle aches, Stiffness Hematologic/lymphatic: DENIES: Lymphadenopathy Neurologic: DENIES: Headache Past Family Social History Past Medical History Benign Meningioma 1999 with recurrance 2001 (13 mo later) UTI w/hospitalization Oct 2011 History of syncopal episodes Hyponatremia Past Surgical History TRINIDAD & BSO [address] 21 [address] Frank Wilder D&C x 4 before that 70-71 T&A age 18 Laparoscopy age 39 R Knee replace 2004 Dr Bermudez Allergies: Coded Allergies: acetaminophen (Unverified Allergy, Severe, Hallucinations, 10/27/16) adhesive (Unverified Allergy, Severe, skin pealing, 10/27/16) aspirin (Unverified Allergy, Severe, HIVES, 10/27/16) cephalexin (Unverified Allergy, Severe, Nausea/Vomiting, 10/27/16) clonidine (Unverified Allergy, Severe, Psychosis. Leg edema, , 10/27/16) "MAKES ME FEEL LOOPY" diclofenac (Unverified Allergy, Severe, 10/27/16) doxycycline (Unverified Allergy, Severe, UNKNOWN REACTION PER PT, 10/27/16) erythromycin base (Unverified Allergy, Severe, 10/27/16) etodolac (Unverified Allergy, Severe, 10/27/16) flurbiprofen (Unverified Allergy, Severe, 10/27/16) ibuprofen (Unverified Allergy, Severe, 10/27/16) indomethacin (Unverified Allergy, Severe, 10/27/16) ketoprofen (Unverified Allergy, Severe, 10/27/16) ketorolac (Unverified Allergy, Severe, 10/27/16) meloxicam (Unverified Allergy, Severe, 10/27/16) PT STATES SHE CAN'T TAKE NSAIDS minocycline (Unverified Allergy, Severe, UNKNOWN REACTION PER PT, 10/27/16) morphine (Unverified Allergy, Severe, Hallucinations, 10/27/16) naproxen (Unverified Allergy, Severe, 10/27/16) oxaprozin (Unverified Allergy, Severe, 10/27/16) oxycodone (Unverified Allergy, Severe, Hallucinations, 10/27/16) prochlorperazine (Unverified Allergy, Severe, b/p drop, 10/27/16) theophylline (Unverified Allergy, Severe, Nausea/Vomiting, 10/27/16) tigecycline (Unverified Allergy, Severe, UNKNOWN REACTION PER PT, 10/27/16) warfarin (Unverified Allergy, Severe, PT DOES NOT KNOW REACTION, 10/27/16) amoxicillin (Unverified Allergy, Intermediate, ITCHING, 10/27/16) formaldehyde (Unverified Allergy, Unknown, not specifically related., 10/27) atorvastatin (Unverified Adverse Reaction, Severe, numbness of both legs. , 10/27/16) ciprofloxacin (Unverified Adverse Reaction, Severe, Nausea/Vomiting, ) meclizine (Unverified Adverse Reaction, Severe, Nausea/Vomiting,dizzy, ) metformin (Unverified Adverse Reaction, Severe, Got hypoglycemic and passed out x 2. Dr MAULIK Ridley , 10/27/16) advised her never to take again. promethazine (Unverified Adverse Reaction, Severe, low blood pressure, ) by history according to patient. venlafaxine (Unverified Adverse Reaction, Severe, All the SE, 10/27/16) Uncoded Allergies: NICKEL (Allergy, Severe, RASH, 08/31/13) swelling Ice (Adverse Reaction, Severe, Severe muscle spasms and cramps, 08/31/13) Family History CAD with 2 5way bypasses before DM 2 in real mother Cancers: Fathers great aunt ovarian cancer. Mother of pancreatic cancer . Social History Marrital Status: x 3. 3 times. Lost 3rd one over a yr ago. 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 Only took 4 mo. Tobacco: 2 mo of smoking in teens. Alcohol: Never Illicit drug use: none Physical Exam Vital Signs Vital Signs Date Time Temp Pulse Resp B/P Pulse Ox O2 Delivery O2 Flow Rate FiO2 10/28/16 10:01 63 10/28/16 10:00 63 32 125/70 99 10/28/16 10:00 63 10/28/16 09:01 60 10/28/16 09:00 60 30 182/70 99 10/28/16 09:00 60 10/28/16 08:00 64 10/28/16 08:00 98.4 64 21 163/72 96 10/28/16 07:00 60 18 160/68 96 10/28/16 07:00 60 10/28/16 06:00 61 10/28/16 04:00 98.1 60 19 156/69 97 10/28/16 04:00 60 10/28/16 02:00 60 10/28/16 00:00 59 10/28/16 00:00 98.3 60 20 142/63 93 10/27/16 22:00 64 10/27/16 20:00 64 10/27/16 20:00 98.1 64 20 160/72 97 10/27/16 18:00 59 10/27/16 17:00 60 10/27/16 16:00 64 10/27/16 16:00 98.8 64 25 130/60 98 10/27/16 15:00 65 10/27/16 15:00 65 19 126/57 99 10/27/16 14:00 61 10/27/16 13:00 68 10/27/16 12:00 64 10/27/16 12:00 98.7 64 17 151/67 96 Physical Exam Gen. appearance: Very pleasant in conversation woman seated in her ICU bed side chair. HEENT: Atraumatic, normocephalic with EOMI. MMM. No rhinorrhea. No visible LAD or JVD. Lungs: Generally clear, diminished breath sounds on auscultation. Cardiac: Presence of a pacemaker left upper anterior chest, S1-S2, s3 or significant murmurs appreciated. Abdomen: Soft and protuberant, no specific tender areas, no masses or organomegaly. Extremities: Feet are warm and dry, no calf tenderness, bilateral knee arthroplasty scars evident. Neuro: AAO 3. Afocal. Normal normal speech. Normal interaction with examiners. Laboratory Laboratory Tests Test 10/27/16 10/27/16 10/27/16 10/28/16 12:30 12:54 23:12 04:37 Urine Color YELLOW Urine Turbidity CLOUDY Urine pH 5.5 Urine Specific [place] 1.012 Urine Protein 30 Urine Glucose (UA) NEG Urine Ketones NEG Urine Occult Blood SMALL Urine Nitrite NEG Urine Bilirubin NEG Urine Urobilinogen LESS THAN 2.0 Urine Leukocyte Esterase LARGE Urine RBC 4 Urine WBC Urine WBC Clumps MANY Urine Squamous Epithelial 45 Cells Urine Bacteria MANY Microscopic Urinalysis Comment CULTURE INDICATED Urine Osmolality 194 Urine Random Creatinine 44.5 Urine Random Sodium 8 Sodium Level 120 126 129 Potassium Level 3.5 3.4 Chloride Level 78 90 Carbon Dioxide Level 29.2 27.6 Anion Gap 13 11 Blood Urea Nitrogen 25 22 Creatinine 1.22 0.99 Estimat Glomerular Filtration 44 56 Rate Random Glucose 152 131 Calcium Level 9.3 8.8 Total Bilirubin 0.5 Aspartate Amino Transf 58 (AST/SGOT) Alanine Aminotransferase 40 (ALT/SGPT) Alkaline Phosphatase 82 Troponin I 0.07 0.05 Total Protein 7.3 Albumin 4.3 Date/Time Procedure Status Source Growth 10/27/16 12:30 Urine Culture Received Urine Clean Catch Pending Result Diagram: 10/26/16 2145 10/28/16 0437 Assessment and Plan Assessment and Plan Mrs. Flaherty is a 66-year-old female presenting with hyponatremia after syncopal episode responding appropriately to fluid restriction and hypertonic saline. Code Status Full code Discussed Condition With Dr. Joseph, supervisor counseling and guidance Dr. Dill, Dr. Malhotra Problem List: (1) Acute hyponatremia Status: Acute Plan: Patient presenting after a syncopal episode likely related to hyponatremia, sodium on admission 115 and is currently 129 Patient initially started on 2% sodium chloride at 20 mL per hour with sodium evaluation every 6 hours EEG: Diffuse slowing consistent with mild to moderate diffuse encephalopathic. No focal abnormality. No seizure activity seen. No breach rhythm noted. No right hemisphere abnormalities Patient currently on 1 L fluid restriction diet As: Normal saline at 75 mL per hour (2) HTN (hypertension) Status: Acute Plan: Patient with chronic hypertension Per cardiology, restart home lisinopril 20 mg daily Pacemaker interrogation ordered (3) Hypothyroidism Status: Chronic Plan: Patient with chronic history of hypothyroidism. Continue home levothyroxine and liothyronine (4) Chronic pain Status: Acute Plan: Patient with history of chronic pain on extensive medical regimen Continue home Soma, diclofenac, gabapentin, and Lortab (5) Nutrition, metabolism, and development symptoms Status: Acute Plan: Fluids: Normal saline at 75 mL per hour Diet: Regular as tolerated with 1 L fluid restriction Electrolytes: Continue to monitor and replete as necessary (6) DVT prophylaxis Status: Acute Plan: Per hematology from Dr. Sandoval's note, service has been decreasing her Lovenox dosage given her frequent falls Patient placed on prophylactic Lovenox 40 mg subcutaneous daily at this time SCD/TEDs Physician Certification 2 Midnight Certification Type: Admission for Inpatient Services Order for Inpatient Services The services are ordered in accordance with Medicare regulations or non- Medicare payer requirements, as applicable. In the case of services not specified as inpatient-only, they are appropriately provided as inpatient services in accordance with the 2-midnight benchmark. Estimated LOS (days): 3 3 days is the estimated time the patient will need to remain in the hospital, assuming treatment plan goals are met and no additional complications. Post-Hospital Plan: Home Duarte Eid MD R2 Oct 28, 2016 11:24
--- NOTE | 2016-10-28 12:04 | HHI.FPPN ---
Subjective Remarks Medicine attending note: 66-year-old woman, well known to the undersigned, admitted after an episode at home following 2 days of GI symptoms from "food poisoning". Patient had some type of altered consciousness, states she was "on the floor "for 5 hours, was eventually able to summon help. In the emergency room most notable was sodium of 1:15, CK 815 and creatinine 1.58. Patient has an extensive past medical history and is on multiple medications that have been chronically prescribed. Sodium is 120s 9 today, she's being transferred from refuse driver service to medicine service. Patient is pleasant, feels that she needs to be back on all of her usual medications, specifically denies any shortness of breath or chest pain. Chronically has extremity pain. Patient seen with the resident team. Objective Vitals Vital signs noted. Lability to blood pressure which is long-standing. Gen. appearance: Very pleasant in conversation woman seated in her ICU bed side chair. HEENT: Grossly nonlocalizing. Lungs: Generally clear, diminished breath sounds on auscultation. Cardiac: Presence of a pacemaker left upper anterior chest, S1-S2, s3 or significant murmurs appreciated. Abdomen: Soft and protuberant, no specific tender areas, no masses or organomegaly. Extremities: Feet are warm and dry, no calf tenderness, bilateral knee arthroplasty scars evident. Vital Signs Date Time Temp Pulse Resp B/P Pulse Ox O2 Delivery O2 Flow Rate FiO2 10/28/16 10:01 63 10/28/16 10:00 63 32 125/70 99 10/28/16 10:00 63 10/28/16 09:01 60 10/28/16 09:00 60 30 182/70 99 10/28/16 09:00 60 10/28/16 08:00 64 10/28/16 08:00 98.4 64 21 163/72 96 10/28/16 07:00 60 18 160/68 96 10/28/16 07:00 60 10/28/16 06:00 61 10/28/16 04:00 98.1 60 19 156/69 97 10/28/16 04:00 60 10/28/16 02:00 60 10/28/16 00:00 59 10/28/16 00:00 98.3 60 20 142/63 93 10/27/16 22:00 64 10/27/16 20:00 64 10/27/16 20:00 98.1 64 20 160/72 97 10/27/16 18:00 59 10/27/16 17:00 60 10/27/16 16:00 64 10/27/16 16:00 98.8 64 25 130/60 98 10/27/16 15:00 65 10/27/16 15:00 65 19 126/57 99 10/27/16 14:00 61 10/27/16 13:00 68 10/27/16 12:00 64 10/27/16 12:00 98.7 64 17 151/67 96 I/O 10/27/16 10/27/16 10/27/16 10/28/16 10/28/16 10/28/16 07:00 15:00 23:00 07:00 15:00 23:00 Intake Total 116 ml 1174 ml 1006 ml 1142 ml Output Total 1525 ml 1100 ml 1250 ml Balance 116 ml -351 ml -94 ml -108 ml Intake Oral 0 ml 120 ml 360 ml 480 ml IV Total 116 ml 1054 ml 646 ml 662 ml Output Urine Total 1525 ml 1100 ml 1250 ml Stool Total 0 ml 0 ml # Bowel Movements 0 Result Diagram: 10/26/16 2145 10/28/16 0437 A/P Assessment and Plan Clinical assessment: Complex 66-year-old woman admitted with sodium of 115 following "food poisoning" and GI symptoms. Patient has stabilized with her sodium 129 today, appears to have had some acute rhabdomyolysis secondary to being on the floor for an indeterminate period of time, renal function is improving. Review of diabetic Accu-Cheks appear relatively stable. Patient appears to be having some withdrawal from her pain medication, Soma and anxiolytics. Patient seen and examined. Case reviewed and discussed with resident team. Agree with plan of care as discussed with me and documented in the resident note. Javier Dill MD Oct 28, 2016 12:04
[2016-10-28] MEDS ORDERED: ALBUTEROL SULFATE 90 MCG/ACT HFA 8 GM INHALER INH PRN ×2 (12:30)
[2016-10-28] MEDS ORDERED: CARISOPRODOL 350 MG TAB PO PRN (12:30)
[2016-10-28] MEDS: LIPASE/PROTEASE/AMYLASE (24,000/76,000/120,000) CAP PO SCH ×2 (13:00→16:46)
[2016-10-28] MEDS: GABAPENTIN 400 MG CAP PO SCH ×2 (13:00→16:47)
[2016-10-28] MEDS ORDERED: POTASSIUM CHLORIDE 25 MEQ EFFERVESCENT TAB PO ONE (14:00)
[2016-10-28 14:14] LABS: AUTOMATED NEUTROPHIL # 3.1 TH/MM3 (1.8-7.7); BASOPHIL % 0.9 % (0.0-2.0); EOSINOPHIL # 0.1 TH/MM3 (0-0.4); EOSINOPHIL % 1.7 % (0.0-4.0); HEMATOCRIT 34.5 % (35.0-46.0); HEMO FLAGS DIFF FINAL; LYMPH % 27.4 % (9.0-44.0); LYMPHOCYTE # 1.4 TH/MM3 (1.0-4.8); MEAN CELL VOLUME 91.9 FL (80.0-100.0); MEAN CORPUSCULAR HGB CONC 33.7 % (32.0-36.0); MONO % 9.3 % (0.0-8.0); NEUT % 60.7 % (16.0-70.0); PLATELET COUNT 177 TH/MM3 (150-450); RED BLOOD COUNT 3.76 MIL/MM3 (4.00-5.30); RED CELL DISTRIBUTION WIDTH 13.2 % (11.6-17.2); WHITE BLOOD COUNT 5.2 TH/MM3 (4.0-11.0)
[2016-10-28] MEDS: ACETAMINOPHEN/HYDROcodone 325 MG/10 MG TAB PO PRN (16:50)
[2016-10-28 17:19] LABS: ALT (GPT) 39 U/L (10-53); ANION GAP 6 MEQ/L (5-15); AST (GOT) 39 U/L (15-37); BICARBONATE 32.3 MEQ/L (21.0-32.0); BLOOD UREA NITROGEN 19 MG/DL (7-18); CHLORIDE 92 MEQ/L (98-107); GLOMERULAR FILTRATION RATE 55 ML/MIN (>89); POTASSIUM 3.5 MEQ/L (3.5-5.1); SODIUM (NA) 130 MEQ/L (136-145)
[2016-10-28 17:21] LABS: ALKALINE PHOSPHATASE 77 U/L (45-117); TOTAL BILIRUBIN ADULT 0.4 MG/DL (0.2-1.0)
[2016-10-28] MEDS: SODIUM CHLOR 0.9% 1000 ML INJ 1,000 ML IV SCH (18:11)
[2016-10-28] MEDS: TEMAZEPAM 15 MG CAP PO SCH (20:58)
[2016-10-28] MEDS: traZODone HCL 100 MG TAB PO SCH (20:59)
[2016-10-28] MEDS: LIOTHYRONINE SODIUM 5 MCG TAB PO SCH (20:59)
[2016-10-28] MEDS ORDERED: ATORVASTATIN 80 MG TAB PO SCH (21:00)
[2016-10-29] VITALS (12 sets, daily range): BP systolic 107–162; BP diastolic 49–70; PULSE 59–87; RESP 12–28; TEMP 96.3–98.3; O2SAT 94–98
[2016-10-29] MEDS: SODIUM CHLOR 0.9% 1000 ML INJ 1,000 ML IV SCH ×2 (01:00→08:47)
[2016-10-29] MEDS: CHLORHEXIDINE GLUCONATE 2 % 1 PACK (2 CLOTHS) TOP SCH (01:41)
[2016-10-29] MEDS: INSULIN NovoLIN REGULAR SUPPLEMENTAL SCALE SQ SCH ×5 (06:00→23:12)
[2016-10-29] MEDS: ENOXAPARIN SODIUM 40 MG/0.4 ML SYRINGE SQ SCH (06:25)
[2016-10-29] MEDS: LEVOTHYROXINE SODIUM 50 MCG TAB PO SCH (06:25)
--- NOTE | 2016-10-29 07:17 | HHI.DCPOC ---
Discharge Care Plan Diagnosis: (1) Hyponatremia Goals to Promote Your Health * To prevent worsening of your condition and complications * To maintain your health at the optimal level Directions to Meet Your Goals Take your medications as prescribed Follow your dietary instruction Follow activity as directed Keep your appointments as scheduled Take your immunizations and boosters as scheduled If your symptoms worsen call your PCP, if no PCP go to Urgent Care Center or Emergency Room Smoking is Dangerous to Your Health. Avoid second hand smoke Call the 24-hour hour crisis hotline for domestic abuse at Duarte Eid MD R2 Oct 29, 2016 07:16
--- NOTE | 2016-10-29 08:04 | PD.CARD.PN ---
Subjective Subjective Remarks denies CV complaints Objective Vital Signs / I&O Vital Signs Date Time Temp Pulse Resp B/P Pulse Ox O2 Delivery O2 Flow Rate FiO2 10/29/16 06:00 59 10/29/16 06:00 59 10/29/16 04:00 98.3 59 12 109/56 96 10/29/16 04:00 59 10/29/16 02:00 60 10/29/16 01:38 107/49 10/29/16 00:00 60 10/29/16 00:00 60 13 94 10/28/16 22:00 60 10/28/16 21:09 60 24 142/67 97 10/28/16 20:56 60 26 157/66 97 10/28/16 20:00 98.2 60 13 97 10/28/16 20:00 60 13 97 10/28/16 20:00 60 10/28/16 18:00 62 10/28/16 17:00 60 10/28/16 16:03 60 10/28/16 16:00 60 10/28/16 16:00 97.8 60 26 127/56 98 10/28/16 15:00 60 10/28/16 14:00 66 10/28/16 13:00 65 10/28/16 12:00 62 10/28/16 12:00 98.1 62 28 152/65 96 10/28/16 11:00 60 10/28/16 10:01 63 10/28/16 10:00 63 32 125/70 99 10/28/16 10:00 63 10/28/16 09:01 60 10/28/16 09:00 60 30 182/70 99 10/28/16 09:00 60 I/O 10/28/16 10/28/16 10/28/16 10/29/16 10/29/16 10/29/16 07:00 15:00 23:00 07:00 15:00 23:00 Intake Total 1142 ml 2008 ml 372 ml 590 ml Output Total 1250 ml 950 ml 500 ml 600 ml Balance -108 ml 1058 ml -128 ml -10 ml Intake Oral 480 ml 1200 ml IV Total 662 ml 808 ml 372 ml 590 ml Output Urine Total 1250 ml 950 ml 500 ml 600 ml Stool Total 0 ml 0 ml 0 ml 0 ml Physical Exam GENERAL: Well-nourished, well-developed patient in no apparent distress. NECK: No JVD. No carotid bruit. CARDIOVASCULAR: Regular rate and rhythm. S1/S2 no murmur, rub, or gallop. RESPIRATORY: No accessory muscle use. Clear to auscultation. Breath sounds equal bilaterally. GASTROINTESTINAL: Abdomen soft, non-tender, nondistended. MUSCULOSKELETAL: Extremities without clubbing, cyanosis, or edema. Laboratory Laboratory Tests Test 10/28/16 10/28/16 10/28/16 13:46 16:50 22:37 White Blood Count 5.2 TH/MM3 Red Blood Count 3.76 MIL/MM3 Hemoglobin 11.6 GM/DL Hematocrit 34.5 % Mean Corpuscular Volume 91.9 FL Mean Corpuscular Hemoglobin 31.0 PG Mean Corpuscular Hemoglobin 33.7 % Concent Red Cell Distribution Width 13.2 % Platelet Count 177 TH/MM3 Mean Platelet Volume 6.2 FL Neutrophils (%) (Auto) 60.7 % Lymphocytes (%) (Auto) 27.4 % Monocytes (%) (Auto) 9.3 % Eosinophils (%) (Auto) 1.7 % Basophils (%) (Auto) 0.9 % Neutrophils # (Auto) 3.1 TH/MM3 Lymphocytes # (Auto) 1.4 TH/MM3 Monocytes # (Auto) 0.5 TH/MM3 Eosinophils # (Auto) 0.1 TH/MM3 Basophils # (Auto) 0.0 TH/MM3 CBC Comment DIFF FINAL Differential Comment Sodium Level 129 MEQ/L 130 MEQ/L 130 MEQ/L Potassium Level 3.5 MEQ/L Chloride Level 92 MEQ/L Carbon Dioxide Level 32.3 MEQ/L Anion Gap 6 MEQ/L Blood Urea Nitrogen 19 MG/DL Creatinine 1.01 MG/DL Estimat Glomerular Filtration 55 ML/MIN Rate Random Glucose 174 MG/DL Calcium Level 8.4 MG/DL Magnesium Level 2.0 MG/DL Total Bilirubin 0.4 MG/DL Aspartate Amino Transf 39 U/L (AST/SGOT) Alanine Aminotransferase 39 U/L (ALT/SGPT) Alkaline Phosphatase 77 U/L Total Protein 6.8 GM/DL Albumin 3.9 GM/DL Assessment and Plan Problem List: (1) HTN (hypertension) (2) Atypical syncope Assessment and Plan Pacemaker interrogation shows normal pacemaker function and no episodes . HTN - well controlled hyponatremia - improving sign off call with further questions Oni Carpenter Oct 29, 2016 08:04
[2016-10-29] MEDS: GABAPENTIN 400 MG CAP PO SCH ×3 (08:48→17:12)
[2016-10-29] MEDS: LISINOPRIL 20 MG TAB PO SCH (08:48)
[2016-10-29] MEDS: LIPASE/PROTEASE/AMYLASE (24,000/76,000/120,000) CAP PO SCH ×3 (08:48→17:12)
[2016-10-29] MEDS: DICLOFENAC SODIUM 75 MG DELAYED RELEASE TAB PO SCH ×2 (08:48→22:39)
[2016-10-29] MEDS: PANTOPRAZOLE SOD 40 MG DELAYED RELEASE TAB PO SCH (08:48)
[2016-10-29] MEDS: DOCUSATE SODIUM 50 MG/SENNA 8.6 MG TAB PO SCH ×2 (08:48→22:40)
[2016-10-29] MEDS: PATIENT OWN MEDICATION (Linaclotide (Linzess) 145 MCG) PO SCH (09:00)
[2016-10-29] MEDS: ACETAMINOPHEN/HYDROcodone 325 MG/10 MG TAB PO PRN ×4 (09:03→22:41)
[2016-10-29] MEDS ORDERED: CIPROFLOXACIN 250 MG TAB PO SCH (10:00)
[2016-10-29] MEDS ORDERED: NITROFURANTOIN MONOHYD MACROCR 100 MG CAP PO ONE (10:15)
--- NOTE | 2016-10-29 14:54 | HHI.FPPN ---
Subjective Remarks Patient seen and examined at bedside; patient is pleasant, talkative, and likely during the interaction. Patient is happy that she is placed back on all of her regular medications that she takes at home. Patient is continuing to complain of chronic back and leg pain, which she says is baseline for her. Patient also complains that she is concerned about getting up and walking around by herself and she does not feel like she can go home on her own. She states she would like to work more with physical therapy and occupational therapy and get back to a better state. Patient is considering a long-term rehabilitation versus home. Patient denies any acute events overnight; denies fever/chills. Denies shortness of breath/chest pain/dizziness. (Estefany Gore MD R2) Objective Vitals Vital Signs Date Time Temp Pulse Resp B/P Pulse Ox O2 Delivery O2 Flow Rate FiO2 10/29/16 13:09 96.3 61 18 115/57 98 10/29/16 10:00 87 28 160/67 96 10/29/16 10:00 63 10/29/16 09:00 60 10/29/16 09:00 60 19 95 10/29/16 08:00 60 10/29/16 08:00 60 25 162/66 95 10/29/16 07:00 60 14 97 10/29/16 06:00 59 10/29/16 06:00 59 10/29/16 04:00 98.3 59 12 109/56 96 10/29/16 04:00 59 10/29/16 02:00 60 10/29/16 01:38 107/49 10/29/16 00:00 60 10/29/16 00:00 60 13 94 10/28/16 22:00 60 10/28/16 21:09 60 24 142/67 97 10/28/16 20:56 60 26 157/66 97 10/28/16 20:00 98.2 60 13 97 10/28/16 20:00 60 13 97 10/28/16 20:00 60 10/28/16 18:00 62 10/28/16 17:00 60 10/28/16 16:03 60 10/28/16 16:00 60 10/28/16 16:00 97.8 60 26 127/56 98 10/28/16 15:00 60 I/O 10/28/16 10/28/16 10/28/16 10/29/16 10/29/16 10/29/16 06:59 14:59 22:59 06:59 14:59 22:59 Intake Total 1142 ml 2008 ml 372 ml 590 ml 600 ml Output Total 1250 ml 950 ml 500 ml 600 ml Balance -108 ml 1058 ml -128 ml -10 ml 600 ml Intake Oral 480 ml 1200 ml 600 ml IV Total 662 ml 808 ml 372 ml 590 ml Output Urine Total 1250 ml 950 ml 500 ml 600 ml Stool Total 0 ml 0 ml 0 ml 0 ml (Estefany Gore MD R2) Result Diagram: 10/28/16 1346 10/28/167 Objective Remarks Vital signs noted. Lability to blood pressure which is long-standing. Gen. appearance: Lively and conversive woman seated upright in her bed in ICU Lungs: Generally clear, diminished breath sounds on auscultation. No rhonchi, rales, or wheezing Cardiac: Presence of a pacemaker left upper anterior chest, normal S1 and S2, regular rate and rhythm Abdomen: Soft , no specific tender areas, no masses or organomegaly. Extremities: no calf tenderness, generalized pain of legs bilaterallypain is worse and popliteal areas bilaterally( this is baseline chronic pain), no erythema noted bilaterally, no tortuous veins felt on palpation, bilateral knee arthroplasty scars evident (Estefany Gore MD R2) A/P Assessment and Plan Mrs. Flaherty is a 66-year-old female initially presenting with hyponatremia after syncopal episode; hyponatremia corrected and placement being discussed. Discharge Planning Discharge is pending decision to either go to long-term rehabilitation center versus home (Estefany Gore MD R2) Assessment and Plan Medicine Attending note: Patient seen and examined. Case reviewed and discussed with resident team. Agree with plan of care is discussed with me and documented in the resident note. (Javier Dill MD) Problem List: (1) Acute hyponatremia Status: Acute Plan: Patient presenting after a syncopal episode likely related to hyponatremia, sodium on admission 115 and is currently 129 Patient initially started on 2% sodium chloride at 20 mL per hour with sodium evaluation every 6 hours EEG: Diffuse slowing consistent with mild to moderate diffuse encephalopathic. No focal abnormality. No seizure activity seen. No breach rhythm noted. No right hemisphere abnormalities Patient previously on 1 L fluid restriction, now on 2 L fluid restriction As: Normal saline at 75 mL per hour (2) HTN (hypertension) Status: Acute Plan: Patient with chronic hypertension Per cardiology, restarted lisinopril 20 mg daily Pacemaker interrogation : Completely - Cardiology signed off (3) Hypothyroidism Status: Chronic Plan: Patient with chronic history of hypothyroidism. Continue home levothyroxine and liothyronine (4) Chronic pain Status: Acute Plan: Patient with history of chronic pain on extensive medical regimen Continue home Soma, diclofenac, gabapentin, and Lortab (5) Nutrition, metabolism, and development symptoms Status: Acute Plan: Fluids: Normal saline at 75 mL per hour Diet: Regular as tolerated with 2 L fluid restriction Electrolytes: Continue to monitor and replete as necessary (6) DVT prophylaxis Status: Acute Plan: Per hematology from Dr. Sandoval's note, service has been decreasing her Lovenox dosage given her frequent falls Patient placed on prophylactic Lovenox 40 mg subcutaneous daily at this time SCD/TEDs (7) UTI (lower urinary tract infection) Status: Acute Plan: Cultures grew Klebsiella Nitrofurantoin for UTI (Estefany Gore MD R2) Estefany Gore MD R2 Oct 29, 2016 14:54 Javier Dill MD Oct 30, 2016 11:37
[2016-10-29] MEDS: CARISOPRODOL 350 MG TAB PO SCH (17:13)
[2016-10-29 18:52] LABS: HEMATOCRIT 36.4 % (35.0-46.0); MEAN CELL VOLUME 93.8 FL (80.0-100.0); MEAN CORPUSCULAR HEMOGLOBIN 31.8 PG (27.0-34.0); MEAN CORPUSCULAR HGB CONC 33.9 % (32.0-36.0); PLATELET COUNT 151 TH/MM3 (150-450); RED BLOOD COUNT 3.88 MIL/MM3 (4.00-5.30); RED CELL DISTRIBUTION WIDTH 13.3 % (11.6-17.2); REVIEW FLAG FINAL; WHITE BLOOD COUNT 4.5 TH/MM3 (4.0-11.0)
[2016-10-29 18:56] LABS: BICARBONATE 27.4 MEQ/L (21.0-32.0); POTASSIUM 3.7 MEQ/L (3.5-5.1)
[2016-10-29] MEDS: TEMAZEPAM 15 MG CAP PO SCH (22:40)
[2016-10-29] MEDS: LIOTHYRONINE SODIUM 5 MCG TAB PO SCH (22:41)
[2016-10-29] MEDS: traZODone HCL 100 MG TAB PO SCH (22:41)
[2016-10-30] VITALS: BP 106/58; PULSE 64; RESP 18; TEMP 97.5; O2SAT 97
[2016-10-30] MEDS: SODIUM CHLOR 0.9% 1000 ML INJ 1,000 ML IV SCH (03:40)
[2016-10-30] MEDS: CHLORHEXIDINE GLUCONATE 2 % 1 PACK (2 CLOTHS) TOP SCH (03:51)
[2016-10-30 04:00] VITALS: BP 143/65; PULSE 60; RESP 18; TEMP 97.3; O2SAT 94
[2016-10-30] MEDS: ENOXAPARIN SODIUM 40 MG/0.4 ML SYRINGE SQ SCH (05:57)
[2016-10-30] MEDS: LEVOTHYROXINE SODIUM 50 MCG TAB PO SCH (05:57)
[2016-10-30] MEDS: INSULIN NovoLIN REGULAR SUPPLEMENTAL SCALE SQ SCH ×2 (06:00→12:27)
[2016-10-30 08:00] VITALS: BP 123/73; PULSE 60; RESP 18; TEMP 98.2; O2SAT 97
[2016-10-30] MEDS ORDERED: NITROFURANTOIN MONOHYD MACROCR 100 MG CAP PO SCH (09:00)
[2016-10-30] MEDS: PATIENT OWN MEDICATION (Linaclotide (Linzess) 145 MCG) PO SCH (09:12)
[2016-10-30] MEDS: DOCUSATE SODIUM 50 MG/SENNA 8.6 MG TAB PO SCH (09:19)
[2016-10-30] MEDS: GABAPENTIN 400 MG CAP PO SCH ×2 (09:19→12:21)
[2016-10-30] MEDS: DICLOFENAC SODIUM 75 MG DELAYED RELEASE TAB PO SCH (09:19)
[2016-10-30] MEDS: LIPASE/PROTEASE/AMYLASE (24,000/76,000/120,000) CAP PO SCH ×2 (09:19→12:21)
[2016-10-30] MEDS: LISINOPRIL 20 MG TAB PO SCH (09:20)
[2016-10-30] MEDS: PANTOPRAZOLE SOD 40 MG DELAYED RELEASE TAB PO SCH (09:20)
[2016-10-30] MEDS: CARISOPRODOL 350 MG TAB PO SCH ×2 (09:23→12:21)
--- NOTE | 2016-10-30 11:36 | HHI.FF ---
Face to Face Verification Diagnosis: (1) Chronic pain (2) Syncopal episodes (3) Physical deconditioning Physical Therapy Order: Evaluate and Treat, Improve ambulation, Strength and gait training I have seen patient Yanet Flaherty on 10/30/16. My clinical findings support the need for the requested home health care services because: Ltd mobility - disease progression Deconditioned w/ increased weakness High risk of falls I certify that my clinical findings support that this patient is homebound because: Unsteady gait/balance Estefany Gore MD R2 Oct 30, 2016 11:36
--- NOTE | 2016-10-30 11:54 | HHI.FPPN ---
Subjective Remarks Patient seen and examined by medical team this morning. No acute events overnight with vital signs within normal limits. Patient is frustrated today that physical therapy recommended home health with PT instead of SNF placement. Upon further discussion with case liner patient does qualify for SNF placement and will be evaluated this afternoon by [facility] on [facility] for possible placement at discharge. Her only complaint today is constipation which has not resolved with her daily stool softeners. Otherwise she has no complaints and denies any fevers, chills, shortness of breath, chest pain, NVD, abdominal pain, or calf tenderness Objective Vitals Vital Signs Date Time Temp Pulse Resp B/P Pulse Ox O2 Delivery O2 Flow Rate FiO2 10/30/16 08:00 98.2 60 18 123/73 97 10/30/16 04:00 97.3 60 18 143/65 94 10/30/16 00:00 97.5 64 18 106/58 97 10/29/16 20:00 97.8 60 18 125/61 97 10/29/16 16:09 97.6 61 18 161/70 97 10/29/16 13:09 96.3 61 18 115/57 98 I/O 10/29/16 10/29/16 10/29/16 10/30/16 10/30/16 10/30/16 07:00 15:00 23:00 07:00 15:00 23:00 Intake Total 590 ml 600 ml 225 ml Output Total 600 ml 1000 ml Balance -10 ml 600 ml 225 ml -1000 ml Intake Oral 600 ml IV Total 590 ml 225 ml Output Urine Total 600 ml 1000 ml Stool Total 0 ml Result Diagram: 10/29/16 1728 10/29/16 4522 Objective Remarks Gen. appearance: Well-appearing female lying in bed in no acute distress sleeping upon entering the room. Lungs: Generally clear, diminished breath sounds on auscultation secondary to poor inspiratory effort. No rhonchi, rales, or wheezing. No increased work of breathing. Cardiac: Presence of a pacemaker left upper anterior chest. Regular rate and rhythm with no MGR appreciated. Abdomen: Soft , no specific tender areas with positive bowel sounds. No masses appreciated. : Oscar catheter in place with approximately 200 mL of straw-colored urine and reservoir. Extremities: No calf tenderness. Generalized pain of legs bilaterally, pain is worse and popliteal areas bilaterally (this is baseline chronic pain per her report), no erythema noted bilaterally, no tortuous veins felt on palpation, bilateral knee arthroplasty scars evident Neuro: Afocal. AAO 3. Normal speech and judgment. Normal interaction with examiners. A/P Assessment and Plan Mrs. Flaherty is a 66-year-old female presenting with hyponatremia after syncopal episode who responded appropriately to fluid restriction and hypertonic saline. Medicine Attending note: Patient seen and examined. Case reviewed and discussed with resident team. Agree with plan of care is discussed with me and documented in the resident note. Discharge Planning Likely today. Case management consulted for assistance regarding SNF placement versus home with home health physical therapy. Problem List: (1) Acute hyponatremia Status: Acute Plan: Patient presenting after a syncopal episode likely related to hyponatremia, sodium on admission 115 and is currently 132 Patient initially started on 2% sodium chloride at 20 mL per hour with sodium evaluation every 6 hours, discontinued 10/27 Patient started on normal saline at 75 mL per hour on 10/27, sodium response appropriate EEG: Diffuse slowing consistent with mild to moderate diffuse encephalopathic. No focal abnormality. No seizure activity seen. No breach rhythm noted. No right hemisphere abnormalities Patient previously on 1 L fluid restriction, now on 2 L fluid restriction As: Normal saline at 75 mL per hour (2) UTI (lower urinary tract infection) Status: Acute Plan: Patient found to have UTI based on UA. Urine Cultures: Pansensitive Klebsiella Nitrofurantoin twice a day (3) HTN (hypertension) Status: Acute Plan: Patient with chronic hypertension Per cardiology, restarted lisinopril 20 mg daily Pacemaker interrogation : Within normal limits - Cardiology signed off (4) Hypothyroidism Status: Chronic Plan: Patient with chronic history of hypothyroidism. Continue home levothyroxine and liothyronine (5) Chronic pain Status: Acute Plan: Patient with history of chronic pain on extensive medical regimen Continue home Soma, diclofenac, gabapentin, and Lortab (6) Nutrition, metabolism, and development symptoms Status: Acute Plan: Fluids: Normal saline at 75 mL per hour Diet: Regular as tolerated with 2 L fluid restriction Electrolytes: Continue to monitor and replete as necessary (7) DVT prophylaxis Status: Acute Plan: Per hematology from Dr. Sandoval's note, service has been decreasing her Lovenox dosage given her frequent falls Patient placed on prophylactic Lovenox 40 mg subcutaneous daily at this time SCD/Duarte Romero MD R2 Oct 30, 2016 11:53
[2016-10-30 12:00] VITALS: BP 122/79; PULSE 60; RESP 18; TEMP 97.7; O2SAT 97
[2016-10-30] MEDS: ACETAMINOPHEN/HYDROcodone 325 MG/10 MG TAB PO PRN (12:21)
[2016-10-30 13:23] LABS: HEMATOCRIT 29.8 % (35.0-46.0); MEAN CORPUSCULAR HEMOGLOBIN 32.5 PG (27.0-34.0); MEAN CORPUSCULAR HGB CONC 34.9 % (32.0-36.0); PLATELET COUNT 152 TH/MM3 (150-450); RED BLOOD COUNT 3.21 MIL/MM3 (4.00-5.30); RED CELL DISTRIBUTION WIDTH 13.2 % (11.6-17.2); REVIEW FLAG FINAL; WHITE BLOOD COUNT 5.6 TH/MM3 (4.0-11.0)
[2016-10-30 13:49] LABS: BICARBONATE 28.5 MEQ/L (21.0-32.0); POTASSIUM 4.2 MEQ/L (3.5-5.1)
[2016-10-30 16:34] VITALS: BP 118/58; PULSE 59; RESP 18; TEMP 97.8; O2SAT 97
--- NOTE | 2016-11-03 07:45 | HHI.DS ---
Discharge Summary Admission Date Oct 27, 2016 at 00:09 Discharge Date: Oct 30, 2016 Admitting Diagnosis Syncope versus sz, hyponatremia (1) Acute hyponatremia Diagnosis: Principal Plan: Patient presenting after a syncopal episode likely related to hyponatremia, sodium on admission 115 and is currently 132 Patient initially started on 2% sodium chloride at 20 mL per hour with sodium evaluation every 6 hours, discontinued 10/27 Patient started on normal saline at 75 mL per hour on 10/27, sodium response appropriate EEG: Diffuse slowing consistent with mild to moderate diffuse encephalopathic. No focal abnormality. No seizure activity seen. No breach rhythm noted. No right hemisphere abnormalities Patient previously on 1 L fluid restriction, now on 2 L fluid restriction As: Normal saline at 75 mL per hour ICD Codes: E87.1 - Hypo-osmolality and hyponatremia Status: Acute (2) UTI (lower urinary tract infection) Diagnosis: Principal Plan: Patient found to have UTI based on UA. Urine Cultures: Pansensitive Klebsiella Nitrofurantoin twice a day ICD Codes: N39.0 - Lower urinary tract infectious disease Status: Acute (3) HTN (hypertension) Diagnosis: Secondary Plan: Patient with chronic hypertension Per cardiology, restarted lisinopril 20 mg daily Pacemaker interrogation : Within normal limits - Cardiology signed off ICD Codes: I10 - Essential (primary) hypertension Status: Acute (4) Hypothyroidism Diagnosis: Secondary Plan: Patient with chronic history of hypothyroidism. Continue home levothyroxine and liothyronine ICD Codes: E03.9 - Hypothyroidism, unspecified Status: Chronic (5) Chronic pain Diagnosis: Secondary Plan: Patient with history of chronic pain on extensive medical regimen Continue home Soma, diclofenac, gabapentin, and Lortab ICD Codes: G89.29 - Other chronic pain Status: Acute (6) Nutrition, metabolism, and development symptoms Diagnosis: Principal Plan: Fluids: Normal saline at 75 mL per hour Diet: Regular as tolerated with 2 L fluid restriction Electrolytes: Continue to monitor and replete as necessary ICD Codes: R63.8 - Other symptoms and signs concerning food and fluid intake Status: Acute (7) DVT prophylaxis Diagnosis: Principal Plan: Per hematology from Dr. Sandoval's note, service has been decreasing her Lovenox dosage given her frequent falls Patient placed on prophylactic Lovenox 40 mg subcutaneous daily at this time SCD/TEDs Status: Acute Brief History Ms. Flaherty is a 66 y/o F with a history of hyponatremia presented on 10/27 after a reported syncopal episode. She reports that she had 2 days of GI symptoms following a "food poisoning" with nausea and vomiting that lasted for 2 days. During the syncopal episode episode she states that she was "unconscious, on the floor for approximately 5 hours, before calling for help." She was able to summon neighbor who called 911 and transferred her to the emergency department. She was found to have a sodium of 1:15 with a CK of 815 and creatinine of 1.58. She was directly admitted to ICU under the care of Dr. Sandoval, typing bookkeeper. She was placed on hypertonic saline and responded appropriately. Today her sodium is 129 without altered mentation and is being transferred from the typing bookkeeper service to the family medicine service. She currently reports that she feels "terrible" from not receiving her regular medications. She endorses extremity pain. Upon further review appears to be chronic. Otherwise she has no complaints and denies any fevers, chills, shortness breath, chest pain, NVD, abdominal pain, or calf tenderness. CBC/BMP: 10/30/16 1259 10/30/16 1259 PE at Discharge Gen. appearance: Well-appearing female lying in bed in no acute distress sleeping upon entering the room. Lungs: Generally clear, diminished breath sounds on auscultation secondary to poor inspiratory effort. No rhonchi, rales, or wheezing. No increased work of breathing. Cardiac: Presence of a pacemaker left upper anterior chest. Regular rate and rhythm with no MGR appreciated. Abdomen: Soft , no specific tender areas with positive bowel sounds. No masses appreciated. : Oscar catheter in place with approximately 200 mL of straw-colored urine and reservoir. Extremities: No calf tenderness. Generalized pain of legs bilaterally, pain is worse and popliteal areas bilaterally (this is baseline chronic pain per her report), no erythema noted bilaterally, no tortuous veins felt on palpation, bilateral knee arthroplasty scars evident Neuro: Afocal. AAO 3. Normal speech and judgment. Normal interaction with examiners. Hospital Course Patient was admitted to the ICU under the typing bookkeeper care. Patient was started on 2% normal saline at 20 mL per hour with sodium laboratory evaluation every 6 hours. On hospital day 2 the patient was transferred out of the ICU as she responded well to the hypertonic saline. EEG showed diffuse slowing consistent with mild to moderate diffuse encephalopathy, no focal abnormalities, no seizures, and no hemisphere abnormalities. She was then placed on a fluid restriction diet with resolution of her symptoms. She was then discharged to a nursing home facility for continued physical therapy and rehabilitation. During her hospitalization she was noted to have a urinary tract infection with Klebsiella sensitive to nitrofurantoin. She was discharged on nitrofurantoin twice a day with a follow-up urinalysis with culture in 2 weeks. All of her home medications except for carbamazepine were continued including Lovenox 60 mg twice a day. She was instructed to follow-up with her PCP within one week. Pt Condition on Discharge: Stable Discharge Disposition: Discharge to SNF Discharge Instructions DIET: Follow Instructions for: Diabetic Diet Activities you can perform: Regular-No Restrictions Follow up Referrals: PCP Follow-up - 1 Week New Orders: UA C+S IF INDICATED - 2 Weeks Continued Medications: Albuterol 18 GM Inh (Ventolin Hfa 18 GM Inh) 90 Mcg/Act Aer 2 PUFF INH Q6H PRN for SHORTNESS OF BREATH, #1 INHALER 10 Refills Albuterol 8.5 GM Inh (Proair Hfa 8.5 GM Inh) 90 Mcg/Act Aer 2 PUFF INH Q6H PRN for SHORTNESS OF BREATH, #1 INHALER 3 Refills 108 mcg/actuation Carisoprodol (Soma) 350 Mg Tab 350 MG PO TID PRN for PAIN, #90 TAB [address] (Diclofenac Sodium DR) 75 Mg Tabdr 75 MG PO BID, #30 TAB 0 Refills Gabapentin (Gabapentin) 400 Mg Cap 800 CAP PO TID, #540 CAP 1 Refill 2 tabs (800ng) three times daily Glimepiride (Glimepiride) 1 Mg Tab 2 TAB PO BID for Blood Sugar Management, #120 TAB 11 Refills Take with breakfast or first main meal Hydrocodone-Acetaminophen (Lortab) 10-325 Mg Tab 1 TAB PO Q4H PRN for PAIN, #130 TAB 0 Refills 1-2 three times a day for pain Insulin Aspart Inj (Novolog Inj) 1,000 Unit/10 Ml Vial 2-12 UNITS SQ ACHS for Blood Sugar Management, #10 ML 11 Refills As directed by sliding scale. Insulin Glargine Inj (Lantus Solostar Pen Inj) 300 Unit/3 Ml Pen 20 UNITS SQ DAILY for Blood Sugar Management, #2 PEN 11 Refills Levothyroxine (Levothyroxine) 50 Mcg Tab 50 MCG PO DAILY for Thyroid, #90 TAB 3 Refills Linaclotide (Linzess) 145 Mcg Cap 145 MCG PO DAILY, #30 CAP 11 Refills Liothyronine (Liothyronine) 5 Mcg Tab 5 MCG PO HS for Thyroid Supplement, #30 TAB 0 Refills Lisinopril (Lisinopril) 20 Mg Tab 20 MG PO DAILY, #30 TAB 0 Refills Nitrofurantoin Macrocrystal (Nitrofurantoin Macrocrystal) 100 Mg Cap 100 MG PO TID for Infection, #30 CAP 0 Refills Omeprazole (Omeprazole) 40 Mg Cap 40 MG PO DAILY, #30 CAP 0 Refills Pancrelipase (Creon) 24,000-76,000-120,000 Units Cap 1 CAP PO TID for Digestive Aid, #90 CAP 0 Refills Pioglitazone (Pioglitazone) 30 Mg Tab 30 MG PO DAILY for Blood Sugar Management, #30 TAB 0 Refills Rosuvastatin (Crestor) 40 Mg Tab 40 MG PO HS for Cholesterol Management, #30 TAB 11 Refills Temazepam (Restoril) 15 Mg Cap 15 MG PO HS for Insomnia, #30 CAP 2 Refills Trazodone (Trazodone) 150 Mg Tablet 150 MG PO HS for SLEEP, #90 TAB 1 Refill Discontinued Medications: Carbamazepine (Carbamazepine) 200 Mg Tab 400 MG PO TID, #540 TAB 3 Refills Duarte Eid MD R2 Nov 03, 2016 07:45
[2016-11-11] MEDS ORDERED: HYDR-3535 PO (16:16)
[2016-11-11] MEDS ORDERED: SOMA350T PO (16:16)
[2016-12-04] MEDS ORDERED: REST15CA PO (12:32)
[2016-12-04] MEDS ORDERED: LEVO50TA4 PO (14:50)
[2016-12-04] MEDS ORDERED: LIOT5TAB3 PO (15:27)
[2016-12-08] MEDS ORDERED: HYDR-3535 PO (15:09)
[2016-12-08] MEDS ORDERED: SOMA350T PO (15:09)
[2016-12-15] MEDS ORDERED: TRAZ100T6 PO (09:28)
[2016-12-15] MEDS ORDERED: FLUC150T PO (12:35)
[2016-12-15] MEDS ORDERED: HYDR-3535 PO (12:38)
[2016-12-15] MEDS ORDERED: PNEU13P IM (12:40)
== END 2016-10-30 17:48 | DRG 640 ==
LOC: NEPC 20:46 → NEDA 10-27 00:09 → HIMW 10-27 02:00 → N05A 10-29 12:33
PROVIDERS: ADMIT Family Medicine; ATTEND Family Medicine
DX: E87.1 Hypo-osmolality and hyponatremia (principal); G93.40 Encephalopathy, unspecified; M62.82 Rhabdomyolysis; Z68.41 Body mass index [BMI] 40.0-44.9, adult; N39.0 Urinary tract infection, site not specified; F13.230 Sedative, hypnotic or anxiolytic dependence with withdrawal, uncomplicated; I10 Essential (primary) hypertension; E11.9 Type 2 diabetes mellitus without complications; B96.1 Klebsiella pneumoniae [K. pneumoniae] as the cause of diseases classified elsewhere; M25.551 Pain in right hip; W18.30XA Fall on same level, unspecified, initial encounter; M19.90 Unspecified osteoarthritis, unspecified site; M06.9 Rheumatoid arthritis, unspecified; J45.909 Unspecified asthma, uncomplicated; F41.9 Anxiety disorder, unspecified; F32.9 Major depressive disorder, single episode, unspecified; M79.7 Fibromyalgia; E66.9 Obesity, unspecified; R29.6 Repeated falls; E03.9 Hypothyroidism, unspecified; G89.29 Other chronic pain; K59.00 Constipation, unspecified; E78.5 Hyperlipidemia, unspecified; Z96.653 Presence of artificial knee joint, bilateral; M54.9 Dorsalgia, unspecified; M79.606 Pain in leg, unspecified; Z95.0 Presence of cardiac pacemaker; Y92.002 Bathroom of unspecified non-institutional (private) residence as the place of occurrence of the external cause; Z79.84 Long term (current) use of oral hypoglycemic drugs; Z79.4 Long term (current) use of insulin; Z86.73 Personal history of transient ischemic attack (TIA), and cerebral infarction without residual deficits; Z86.718 Personal history of other venous thrombosis and embolism; Z86.011 Personal history of benign neoplasm of the brain
CPT/HCPCS: 70450; 71010; 73502; 80048; 80053; 80307; 81001; 82550; 82552; 82570; 82948; 83735; 83880; 83930; 83935; 84295; 84300; 84484; 85025; 85027; 85610; 85730; 87077; 87086; 87186; 87641; 93005; 93970; 94150; 94667; 95819; 96374; J0360; J1650; J2405; J3480; J7030; J7040

== ENCOUNTER 2016-11-06 13:58 | Emergency (ER) | payer MEDICARE, OTHER ==
[~2016-11-06 13:58] MED LIST changes: -CARB200T PO; -DIFL150T PO; -FURO1TAB60 PO; -NITR100C4 PO
[2016-11-06 14:08] VITALS: BP 166/98; PULSE 61; RESP 15; TEMP 98.4; O2SAT 98
--- NOTE | 2016-11-06 14:25 | PD ---
HPI . fall/knee pain, passing out Chief Complaint: Fall Time Seen by Provider: 14:21 Travel History International Travel<30 days: No Contact w/Intl Traveler<30days: No Traveled to known affect area: No History of Present Illness HPI 66-year-old female here with multiple medical complaints. Patient was sent by a rehabilitation facility due to recently falling. Apparently patient has had 2 falls in the past 2 days and hurt her knees. Upon further questioning she tells me that she has a history of passing out. She does not recall a syncopal episode, but says that she's had this in the past. She actually is not certain if she passed. She is shaking a little bit in our exam room. She does have a history of seizure disorder that she self reports. During our exam, she fell asleep within seconds. PFSH Past Medical History Hx Anticoagulant Therapy: Yes (LOVENOX) Anemia: Yes Arthritis: Yes (OA, RA, SA, FIBRO) Asthma: Yes Autoimmune Disease: No Blood Disorders: Yes (pt is on lovenox ) Anxiety: Yes Depression: Yes Heart Rhythm Problems: Yes (MURMUR) Cancer: No Cardiac Catheterization: No Cardiovascular Problems: Yes High Cholesterol: Yes Chemotherapy: No Chest Pain: No Congestive Heart Failure: No COPD: No Cerebrovascular Accident: Yes (CVA) Diabetes: Yes Diminished Hearing: No Deep Vein Thrombosis: Yes Endocrine: Yes Fibromyalgia: Yes Gastrointestinal Disorders: Yes ("excessive gas") GERD: No Genitourinary: No Hepatitis: No Hiatal Hernia: Yes Hypertension: Yes Immune Disorder: No Implanted Vascular Access Dvce: Yes Kidney Stones: No Musculoskeletal: Yes Neurologic: Yes (cva-residual none) Psychiatric: No Reproductive: Yes Respiratory: Yes (ASTHMA) Immunizations Current: Yes Migraines: No Pneumonia: Yes Radiation Therapy: No Renal Failure: No Seizures: Yes (AUGUST 2011) Sickle Cell Disease: No Sleep Apnea: No Thyroid Disease: Yes (HYPO) Ulcer: No Menopausal: Yes : 1 Para: 1 Dilation and Curettage (D&C): Yes (x4) Past Surgical History Abdominal Aneurysm Repair: No Abdominal Surgery: Yes ( ABDOMINAL TUMORS REMOVED) AICD: No Appendectomy: No Arteriovenous Shunt: No Cardiac Surgery: Yes (pacer) Cholecystectomy: Yes (1981) Coronary Artery Bypass Graft: No Coronary Stent: No Ear Surgery: No Endocrine Surgery: No Eye Surgery: No Genitourinary Surgery: Yes (R URETERAL STENT) Gynecologic Surgery: Yes (D&C X4, TOTAL HYSTERECTOMY, BILATERAL OOPHORECTOMY ) Hysterectomy: Yes (1971) Insulin Pump: No Joint Replacement: No Mastectomy: No Neurologic Surgery: Yes (BRAIN -- MENINGIOMA REMOVED 1999, RT TEMPORAL CRAINOTOMY) Oral Surgery: Yes (TA) Pacemaker: Yes ([employer]) Prostatectomy: No Tonsillectomy: No Tympanostomy Tube: No Valve Replacement: No Other Surgery: Yes (filter placed for blood clots) Social History Alcohol Use: Yes (occasionally wine) Tobacco Use: No Substance Use: Yes (smoked pot when younger) Allergies-Medications (Allergen,Severity, Reaction): Coded Allergies: acetaminophen (Unverified Allergy, Severe, Hallucinations, 11/06/16) adhesive (Unverified Allergy, Severe, skin pealing, 11/06/16) aspirin (Unverified Allergy, Severe, HIVES, 11/06/16) cephalexin (Unverified Allergy, Severe, Nausea/Vomiting, 11/06/16) clonidine (Unverified Allergy, Severe, Psychosis. Leg edema, , 11/06/16) "MAKES ME FEEL LOOPY" diclofenac (Unverified Allergy, Severe, 11/06/16) doxycycline (Unverified Allergy, Severe, UNKNOWN REACTION PER PT, 11/06/16) erythromycin base (Unverified Allergy, Severe, 11/06/16) etodolac (Unverified Allergy, Severe, 11/06/16) flurbiprofen (Unverified Allergy, Severe, 11/06/16) ibuprofen (Unverified Allergy, Severe, 11/06/16) indomethacin (Unverified Allergy, Severe, 11/06/16) ketoprofen (Unverified Allergy, Severe, 11/06/16) ketorolac (Unverified Allergy, Severe, 11/06/16) meloxicam (Unverified Allergy, Severe, 11/06/16) PT STATES SHE CAN'T TAKE NSAIDS minocycline (Unverified Allergy, Severe, UNKNOWN REACTION PER PT, 11/06/16) morphine (Unverified Allergy, Severe, Hallucinations, 11/06/16) naproxen (Unverified Allergy, Severe, 11/06/16) oxaprozin (Unverified Allergy, Severe, 11/06/16) oxycodone (Unverified Allergy, Severe, Hallucinations, 11/06/16) prochlorperazine (Unverified Allergy, Severe, b/p drop, 11/06/16) theophylline (Unverified Allergy, Severe, Nausea/Vomiting, 11/06/16) tigecycline (Unverified Allergy, Severe, UNKNOWN REACTION PER PT, 11/06/16) warfarin (Unverified Allergy, Severe, PT DOES NOT KNOW REACTION, 11/06/16) amoxicillin (Unverified Allergy, Intermediate, ITCHING, 11/06/16) formaldehyde (Unverified Allergy, Unknown, not specifically related., 11/06) atorvastatin (Unverified Adverse Reaction, Severe, numbness of both legs. , 11/06/16) ciprofloxacin (Unverified Adverse Reaction, Severe, Nausea/Vomiting, ) meclizine (Unverified Adverse Reaction, Severe, Nausea/Vomiting,dizzy, ) metformin (Unverified Adverse Reaction, Severe, Got hypoglycemic and passed out x 2. Dr MAULIK Ridley , 11/06/16) advised her never to take again. promethazine (Unverified Adverse Reaction, Severe, low blood pressure, ) by history according to patient. venlafaxine (Unverified Adverse Reaction, Severe, All the SE, 11/06/16) Uncoded Allergies: NICKEL (Allergy, Severe, RASH, 08/31/13) swelling Ice (Adverse Reaction, Severe, Severe muscle spasms and cramps, 08/31/13) Reported Meds & Prescriptions Reported Meds & Active Scripts Active Nitrofurantoin Macrocrystal 100 Mg Cap 100 Mg PO TID Lortab (Hydrocodone-Acetaminophen) 10-325 Mg Tab 1 Tab PO Q4H PRN 1-2 three times a day for pain Restoril (Temazepam) 15 Mg Cap 15 Mg PO HS Trazodone (Trazodone HCl) 150 Mg Tablet 150 Mg PO HS Proair Hfa 8.5 GM Inh (Albuterol Sulfate) 90 Mcg/Act Aer 2 Puff INH Q6H PRN 108 mcg/actuation Soma (Carisoprodol) 350 Mg Tab 350 Mg PO TID PRN Lantus Solostar Pen Inj (Insulin Glargine) 300 Unit/3 Ml Pen 20 Units SQ DAILY Novolog Inj (Insulin Aspart) 1,000 Unit/10 Ml Vial 2-12 Units SQ ACHS As directed by sliding scale. Gabapentin 400 Mg Cap 800 Cap PO TID 2 tabs (800ng) three times daily Ventolin Hfa 18 GM Inh (Albuterol Sulfate) 90 Mcg/Act Aer 2 Puff INH Q6H PRN Linzess (Linaclotide) 145 Mcg Cap 145 Mcg PO DAILY Levothyroxine (Levothyroxine Sodium) 50 Mcg Tab 50 Mcg PO DAILY Crestor (Rosuvastatin Calcium) 40 Mg Tab 40 Mg PO HS Glimepiride 1 Mg Tab 2 Tab PO BID Take with breakfast or first main meal Reported Pioglitazone (Pioglitazone HCl) 30 Mg Tab 30 Mg PO DAILY Liothyronine (Liothyronine Sodium) 5 Mcg Tab 5 Mcg PO HS Diclofenac Sodium DR (Diclofenac Sodium) 75 Mg Tabdr 75 Mg PO BID Lisinopril 20 Mg Tab 20 Mg PO DAILY Omeprazole 40 Mg Cap 40 Mg PO DAILY Creon (Amylase/Lipase/Protease) 24,000-76,000-120,000 Units Cap 1 Cap PO TID Review of Systems General / Constitutional: No: Fever Eyes: No: Visual changes HENT: No: Headaches Cardiovascular: No: Chest Pain or Discomfort Respiratory: No: Shortness of Breath Gastrointestinal: No: Abdominal Pain Genitourinary: No: Dysuria Musculoskeletal: Positive: Pain (knee pain) Skin: No Rash Neurologic: Positive: Ataxia, No: Weakness Psychiatric: No: Depression Endocrine: No: Polydipsia Hematologic/Lymphatic: No: Easy Bruising Physical Exam Narrative GENERAL: AAO x 3, no acute distress, Well-nourished, well-developed patient. Morbidly obese SKIN: Warm and dry. No visible rashes, right knee very minimal ecchymosis to patellar area, left knee no bruising HEAD: Normocephalic and atraumatic. EYES: No scleral icterus. No injection or drainage. ENT: No nasal drainage noted. Mucous membranes pink. Airway patent. NECK: Supple, trachea midline. No JVD. CARDIOVASCULAR: Regular rate and rhythm without murmurs, gallops, or rubs. RESPIRATORY: Breath sounds equal bilaterally. No accessory muscle use. No rhonchi or rales. GASTROINTESTINAL: Abdomen soft, non-tender, nondistended. EXTREMITIES: No cyanosis or edema. BACK: No obvious deformity. NEURO: grossly intact, PSYCH: AAO x 3, normal affect. Data Data Last Documented VS Vital Signs Date Time Temp Pulse Resp B/P (MAP) Pulse Ox O2 Delivery O2 Flow Rate FiO2 11/06/16 15:43 60 18 162/73 (102) 99 Room Air 11/06/16 14:08 98.4 MDM Medical Decision Making Medical Screen Exam Complete: Yes Emergency Medical Condition: Yes Medical Record Reviewed: Yes Differential Diagnosis ataxia, syncope, knee pain, Narrative Course 66-year-old female here with recurrent falls and knee pain. Patient is uncertain whether or not she is having syncopal episodes. On examination she is lethargic. I recommend med bed for further workup. She is on a long list of meds and it is possible she may be overmedicated. I discussed the case with Teddy Owens PA-C, who will determine patient's disposition. Condition: Stable Lidya Dupree Nov 06, 2016 14:25
[2016-11-06 15:43] VITALS: BP 162/73; PULSE 60; RESP 18; O2SAT 99
--- NOTE | 2016-11-06 16:52 | PD ---
HPI Chief Complaint: Fall Time Seen by Provider: 15:39 Travel History International Travel<30 days: No Contact w/Intl Traveler<30days: No Traveled to known affect area: No History of Present Illness HPI 66-year-old female that presents to the ED for evaluation of fall. Patient apparently had a fall yesterday into her knees. She was sent here by her [facility] secondary to her fall to get evaluated. Per patient she has chronic pain on her lower legs. She was initially seen by Lidya Dupree PA-C. I was asked to take over the case. Patient apparently was found to be somewhat lethargic on exam and she was concerned the patient might be having syncopal episodes. She completed denies this. She states that all she is here for his to get her knees checked so that she can go home. She is usually wheelchair-bound. She lives at the facility secondary to dizziness. She was recently seen and evaluated for hyponatremia secondary to multiple syncopal episodes. She denies any issues at this time. She answers all portions of properly. She appears to be no acute distress. She rates her pain is 8 out of 10. She had surgeries to both her knees. She denies any other medical issues. She chronically takes pain medication. Denies hitting her head. No chest pain or abdominal pain. No other symptoms reported today. She states that she tripped and fell off her wheelchair. She is not sure if she lost consciousness but she does not believe so. She did not hit her head. PFSH Past Medical History Hx Anticoagulant Therapy: Yes (LOVENOX) Anemia: Yes Arthritis: Yes (OA, RA, SA, FIBRO) Asthma: Yes Autoimmune Disease: No Blood Disorders: Yes (pt is on lovenox ) Anxiety: Yes Depression: Yes Heart Rhythm Problems: Yes (MURMUR) Cancer: No Cardiac Catheterization: No Cardiovascular Problems: Yes High Cholesterol: Yes Chemotherapy: No Chest Pain: No Congestive Heart Failure: No COPD: No Cerebrovascular Accident: Yes (CVA) Diabetes: Yes Patient Takes Glucophage: Yes Diminished Hearing: No Deep Vein Thrombosis: Yes Endocrine: Yes Fibromyalgia: Yes Gastrointestinal Disorders: Yes ("excessive gas") GERD: No Genitourinary: No Hepatitis: No Hiatal Hernia: Yes Hypertension: Yes Immune Disorder: No Implanted Vascular Access Dvce: Yes Kidney Stones: No Medical other: Yes (PT HAS HX OF BLOOD CLOTS, SEES DR LIN, HEMATOLOTIST, HAS IVC FILTER) Musculoskeletal: Yes Neurologic: Yes (cva-residual none) Psychiatric: No Reproductive: Yes Respiratory: Yes (ASTHMA) Immunizations Current: Yes Migraines: No Pneumonia: Yes Radiation Therapy: No Renal Failure: No Seizures: Yes (AUGUST 2011) Sickle Cell Disease: No Sleep Apnea: No Thyroid Disease: Yes (HYPO) Ulcer: No Menopausal: Yes : 1 Para: 1 Dilation and Curettage (D&C): Yes (x4) Past Surgical History Abdominal Aneurysm Repair: No Abdominal Surgery: Yes ( ABDOMINAL TUMORS REMOVED) AICD: No Appendectomy: No Arteriovenous Shunt: No Body Medical Devices: INFERIOR VENA CAVA FILTER 12/2011 Cardiac Surgery: Yes (pacer) Cholecystectomy: Yes (1981) Coronary Artery Bypass Graft: No Coronary Stent: No Ear Surgery: No Endocrine Surgery: No Eye Surgery: No Genitourinary Surgery: Yes (R URETERAL STENT) Gynecologic Surgery: Yes (D&C X4, TOTAL HYSTERECTOMY, BILATERAL OOPHORECTOMY ) Hysterectomy: Yes (1971) Insulin Pump: No Joint Replacement: No Mastectomy: No Neurologic Surgery: Yes (BRAIN -- MENINGIOMA REMOVED 1999, RT TEMPORAL CRAINOTOMY) Oral Surgery: Yes (TA) Pacemaker: Yes ([employer]) Prostatectomy: No Tonsillectomy: No Tympanostomy Tube: No Valve Replacement: No Other Surgery: Yes (filter placed for blood clots) Social History Alcohol Use: Yes (occasionally wine) Tobacco Use: No Substance Use: Yes (smoked pot when younger) Allergies-Medications (Allergen,Severity, Reaction): Coded Allergies: acetaminophen (Unverified Allergy, Severe, Hallucinations, 11/06/16) adhesive (Unverified Allergy, Severe, skin pealing, 11/06/16) aspirin (Unverified Allergy, Severe, HIVES, 11/06/16) cephalexin (Unverified Allergy, Severe, Nausea/Vomiting, 11/06/16) clonidine (Unverified Allergy, Severe, Psychosis. Leg edema, , 11/06/16) "MAKES ME FEEL LOOPY" diclofenac (Unverified Allergy, Severe, 11/06/16) doxycycline (Unverified Allergy, Severe, UNKNOWN REACTION PER PT, 11/06/16) erythromycin base (Unverified Allergy, Severe, 11/06/16) etodolac (Unverified Allergy, Severe, 11/06/16) flurbiprofen (Unverified Allergy, Severe, 11/06/16) ibuprofen (Unverified Allergy, Severe, 11/06/16) indomethacin (Unverified Allergy, Severe, 11/06/16) ketoprofen (Unverified Allergy, Severe, 11/06/16) ketorolac (Unverified Allergy, Severe, 11/06/16) meloxicam (Unverified Allergy, Severe, 11/06/16) PT STATES SHE CAN'T TAKE NSAIDS minocycline (Unverified Allergy, Severe, UNKNOWN REACTION PER PT, 11/06/16) morphine (Unverified Allergy, Severe, Hallucinations, 11/06/16) naproxen (Unverified Allergy, Severe, 11/06/16) oxaprozin (Unverified Allergy, Severe, 11/06/16) oxycodone (Unverified Allergy, Severe, Hallucinations, 11/06/16) prochlorperazine (Unverified Allergy, Severe, b/p drop, 11/06/16) theophylline (Unverified Allergy, Severe, Nausea/Vomiting, 11/06/16) tigecycline (Unverified Allergy, Severe, UNKNOWN REACTION PER PT, 11/06/16) warfarin (Unverified Allergy, Severe, PT DOES NOT KNOW REACTION, 11/06/16) amoxicillin (Unverified Allergy, Intermediate, ITCHING, 11/06/16) formaldehyde (Unverified Allergy, Unknown, not specifically related., 11/06) atorvastatin (Unverified Adverse Reaction, Severe, numbness of both legs. , 11/06/16) ciprofloxacin (Unverified Adverse Reaction, Severe, Nausea/Vomiting, ) meclizine (Unverified Adverse Reaction, Severe, Nausea/Vomiting,dizzy, ) metformin (Unverified Adverse Reaction, Severe, Got hypoglycemic and passed out x 2. Dr MAULIK Ridley , 11/06/16) advised her never to take again. promethazine (Unverified Adverse Reaction, Severe, low blood pressure, ) by history according to patient. venlafaxine (Unverified Adverse Reaction, Severe, All the SE, 11/06/16) Uncoded Allergies: NICKEL (Allergy, Severe, RASH, 6/19/14) swelling Ice (Adverse Reaction, Severe, Severe muscle spasms and cramps, 08/31/13) Reported Meds & Prescriptions Reported Meds & Active Scripts Active Nitrofurantoin Macrocrystal 100 Mg Cap 100 Mg PO TID Lortab (Hydrocodone-Acetaminophen) 10-325 Mg Tab 1 Tab PO Q4H PRN 1-2 three times a day for pain Restoril (Temazepam) 15 Mg Cap 15 Mg PO HS Trazodone (Trazodone HCl) 150 Mg Tablet 150 Mg PO HS Proair Hfa 8.5 GM Inh (Albuterol Sulfate) 90 Mcg/Act Aer 2 Puff INH Q6H PRN 108 mcg/actuation Soma (Carisoprodol) 350 Mg Tab 350 Mg PO TID PRN Lantus Solostar Pen Inj (Insulin Glargine) 300 Unit/3 Ml Pen 20 Units SQ DAILY Novolog Inj (Insulin Aspart) 1,000 Unit/10 Ml Vial 2-12 Units SQ ACHS As directed by sliding scale. Gabapentin 400 Mg Cap 800 Cap PO TID 2 tabs (800ng) three times daily Ventolin Hfa 18 GM Inh (Albuterol Sulfate) 90 Mcg/Act Aer 2 Puff INH Q6H PRN Linzess (Linaclotide) 145 Mcg Cap 145 Mcg PO DAILY Levothyroxine (Levothyroxine Sodium) 50 Mcg Tab 50 Mcg PO DAILY Crestor (Rosuvastatin Calcium) 40 Mg Tab 40 Mg PO HS Glimepiride 1 Mg Tab 2 Tab PO BID Take with breakfast or first main meal Reported Pioglitazone (Pioglitazone HCl) 30 Mg Tab 30 Mg PO DAILY Liothyronine (Liothyronine Sodium) 5 Mcg Tab 5 Mcg PO HS Diclofenac Sodium DR (Diclofenac Sodium) 75 Mg Tabdr 75 Mg PO BID Lisinopril 20 Mg Tab 20 Mg PO DAILY Omeprazole 40 Mg Cap 40 Mg PO DAILY Creon (Amylase/Lipase/Protease) 24,000-76,000-120,000 Units Cap 1 Cap PO TID Review of Systems Except as stated in HPI: all other systems reviewed are Neg Physical Exam Narrative GENERAL: SKIN: Warm and dry. HEAD: Atraumatic. Normocephalic. EYES: Pupils equal and round 4 mm reactive to light and accommodation. No scleral icterus. No injection or drainage. ENT: No nasal bleeding or discharge. Mucous membranes pink and moist. Tongue is midline. No uvula deviation. NECK: Trachea midline. No JVD. CARDIOVASCULAR: Regular rate and rhythm. No murmurs, S3, S4. RESPIRATORY: No accessory muscle use. Clear to auscultation. Breath sounds equal bilaterally. GASTROINTESTINAL: Abdomen soft, non-tender, nondistended. Hepatic and splenic margins not palpable. MUSCULOSKELETAL: Extremities without clubbing, cyanosis, or edema. No obvious deformities. Full range of motion of the upper and lower extremities bilaterally. 2+ pulses bilaterally. Patient does have bilateral surgical scars on the knees from old surgeries. No sign of acute disease. Patient does have some bruising noted on the posterior left calf. 2+ pulses bilaterally. Neurovascular intact. Some tenderness to palpation which appears to be chronic as patient does have chronic pain to her legs. NEUROLOGICAL: Awake and alert. No obvious cranial nerve deficits. Motor grossly within normal limits. Five out of 5 muscle strength in the arms and legs. Normal speech. PSYCHIATRIC: Appropriate mood and affect; insight and judgment normal. Data Data Last Documented VS Vital Signs Date Time Temp Pulse Resp B/P (MAP) Pulse Ox O2 Delivery O2 Flow Rate FiO2 11/06/16 15:43 60 18 162/73 (102) 99 Room Air 11/06/16 14:08 98.4 Orders Orders Complete Blood Count With Diff (11/06/16 15:50) Basic Metabolic Panel (Bmp) (11/06/16 15:50) Magnesium (Mg) (11/06/16 15:50) Knee, Complete (4vws) (11/06/16 ) Knee, Complete (4vws) (11/06/16 ) Labs Laboratory Tests Test 11/06/16 16:40 White Blood Count 2.7 TH/MM3 Red Blood Count 3.11 MIL/MM3 Hemoglobin 9.6 GM/DL Hematocrit 29.0 % Mean Corpuscular Volume 93.4 FL Mean Corpuscular Hemoglobin 30.9 PG Mean Corpuscular Hemoglobin Concent 33.0 % Red Cell Distribution Width 13.6 % Platelet Count 124 TH/MM3 Mean Platelet Volume 6.2 FL Blood Urea Nitrogen 12 MG/DL Creatinine 0.97 MG/DL Random Glucose 122 MG/DL Calcium Level 8.2 MG/DL Magnesium Level 2.1 MG/DL Sodium Level 135 MEQ/L Potassium Level 4.5 MEQ/L Chloride Level 102 MEQ/L Carbon Dioxide Level 26.1 MEQ/L Anion Gap 7 MEQ/L Estimat Glomerular Filtration Rate 57 ML/MIN MDM Medical Decision Making Medical Screen Exam Complete: Yes Emergency Medical Condition: Yes Medical Record Reviewed: Yes Interpretation(s) Last Impressions Knee X-Ray 11/06/16 0000 Signed Impressions: Service Date/Time: Sunday, November 06, 2016 16:10 - CONCLUSION: 1. Left knee arthroplasty in anatomic alignment without evidence for loosening or acute fracture. Rojas Kelly MD Knee X-Ray 11/06/16 0000 Signed Impressions: Service Date/Time: Sunday, November 06, 2016 16:00 - CONCLUSION: 1. Right knee arthroplasty in place without evidence for hardware failure or loosening. 2. No acute fracture or dislocation. Rojas Kelly MD CBC & BMP Diagram 11/06/16 16:40 Calcium Level 8.2 L, Magnesium Level 2.1 Differential Diagnosis Fracture versus bruise versus contusion versus syncope versus hyponatremia Narrative Course 66-year-old female that presents to the ED for evaluation of fall. Patient was properly examined and was found to have signs and symptoms consistent with mechanical fall. She tells me that she is here only to get her knees checked. I did recommend that because patient does not really know if she has had syncopal episodes to have basic labs to make sure patient is not hyponatremic. She is in agreement with this plan. Labs and imaging showed no sign of acute disease. More specifically the sodium appears to be within normal limits. Her level second is a little below this appears to be chronic for her. Patient is in no acute distress and sleeping in the bed when reassessing her. She is easily arousable. At this time I do not believe that patient requires any more imaging. Case was discussed with my attending Dr. Nicole in detail and she was made aware of all findings and agrees the patient can be discharged back to her [facility]. Patient will be discharged. She was told this. Close follow with PCP. No new medications ordered. Patient rates takes chronic medications. See ED for worsening symptoms. Diagnosis Primary Impression: Fall Qualified Codes: W19.XXXA - Unspecified fall, initial encounter Additional Impression: Knee contusion Qualified Codes: S80.00XA - Contusion of unspecified knee, initial encounter Patient Instructions: General Instructions Additional Instructions: Take your medications as prescribed. Follow with her doctor. See ED if any worsening symptoms. Med/Other Pt SpecificInfo: No Change to Meds Disposition: 03 DISCHARGE TO SNF Condition: Stable Clemente Owens Nov 06, 2016 16:52
[2016-11-06 16:53] LABS: MEAN CELL VOLUME 93.4 FL (80.0-100.0); MEAN CORPUSCULAR HEMOGLOBIN 30.9 PG (27.0-34.0); PLATELET COUNT 124 TH/MM3 (150-450); RED BLOOD COUNT 3.11 MIL/MM3 (4.00-5.30); RED CELL DISTRIBUTION WIDTH 13.6 % (11.6-17.2); WHITE BLOOD COUNT 2.7 TH/MM3 (4.0-11.0)
--- NOTE | 2016-11-06 16:53 | RADRPT ---
EXAM DATE/TIME: 11/06/2016 16:00 [facility] COMPARISON: No previous studies available for comparison. INDICATIONS : Right knee pain due to fall today . MEDICAL HISTORY : Stroke. Seizures. Deep venous thrombosis.Hypertension. SURGICAL HISTORY : Total knee replacement, right. Total knee replacement, left. Craniotomy. ENCOUNTER: Initial ACUITY: 1 day PAIN SCORE: 8/10 LOCATION: Right Knee. FINDINGS: Right knee arthroplasty in place. Arthroplasty components appear intact without evidence for adjacent loosening there is osseous structures are intact without evidence for acute bony fracture or focal b saroj destruction. No significant joint effusion. Soft tissues are grossly unremarkable. CONCLUSION: 1. Right knee arthroplasty in place without evidence for hardware failure or loosening. 2. No acute fracture or dislocation. Rojas Kelly MD on November 06, 2016 at 16:51 Board Certified Radiologist. This report was verified electronically.
[2016-11-06 16:58] LABS: HEMO FLAGS AUTO DIFF
[2016-11-06 17:06] LABS: BICARBONATE 26.1 MEQ/L (21.0-32.0); MAGNESIUM 2.1 MG/DL (1.5-2.5); POTASSIUM 4.5 MEQ/L (3.5-5.1)
--- NOTE | 2016-11-06 17:07 | RADRPT ---
EXAM DATE/TIME: 11/06/2016 16:10 [facility] COMPARISON: KNEE LEFT COMPLETE (4VWS), September 27, 2013, 17:29. INDICATIONS : Left knee pain due to fall today. MEDICAL HISTORY : Stroke. Seizures. Deep venous thrombosis.Hypertension. SURGICAL HISTORY : Total knee replacement, left. Total knee replacement, right. Craniotomy. ENCOUNTER: Initial ACUITY: 1 day PAIN SCORE: 8/10 LOCATION: Left Knee. FINDINGS: There is a left knee arthroplasty in place. The hardware appears intact without evidence for lucency to suggest loosening. Osseous structures are intact without evidence for acute bony fracture or focal bony destruction. No significant soft tissue abnormality. No significant joint effusion. Calcified v ascular plaque. CONCLUSION: 1. Left knee arthroplasty in anatomic alignment without evidence for loosening or acute fracture. Rojas Kelly MD on November 06, 2016 at 17:04 Board Certified Radiologist. This report was verified electronically.
[2016-11-06 17:46] LABS: EOSINOPHILS 2 % (0-4); NEUTROPHIL # MANUAL DIFF 0.9 TH/MM3 (1.8-7.7); POLYS (SEG NEUTROPHILS) 32 % (16-70); WBC DIFF SAMPLE 100
[2016-11-06 17:47] LABS: SCAN/DIFF FINAL DIFF MANUAL
[2016-11-11] MEDS ORDERED: SOMA350T PO (16:16)
[2016-11-11] MEDS ORDERED: HYDR-3535 PO (16:16)
[2016-12-04] MEDS ORDERED: REST15CA PO (12:32)
[2016-12-04] MEDS ORDERED: LEVO50TA4 PO (14:50)
[2016-12-04] MEDS ORDERED: LIOT5TAB3 PO (15:27)
[2016-12-08] MEDS ORDERED: HYDR-3535 PO (15:09)
[2016-12-08] MEDS ORDERED: SOMA350T PO (15:09)
[2016-12-15] MEDS ORDERED: TRAZ100T6 PO (09:28)
[2016-12-15] MEDS ORDERED: FLUC150T PO (12:35)
[2016-12-15] MEDS ORDERED: HYDR-3535 PO (12:38)
[2016-12-15] MEDS ORDERED: PNEU13P IM (12:40)
== END 2016-11-06 18:50 ==
LOC: NEPE 13:58
DX: R55 Syncope and collapse (principal); S80.02XA Contusion of left knee, initial encounter; S80.01XA Contusion of right knee, initial encounter; G89.29 Other chronic pain; E87.1 Hypo-osmolality and hyponatremia; M06.9 Rheumatoid arthritis, unspecified; E11.9 Type 2 diabetes mellitus without complications; I10 Essential (primary) hypertension; W01.0XXA Fall on same level from slipping, tripping and stumbling without subsequent striking against object, initial encounter
CPT/HCPCS: 73564; 80048; 83735; 85007; 85027; 99285

== ENCOUNTER 2016-11-27 16:38 | Emergency (ER) | payer MEDICARE, OTHER ==
[~2016-11-27] VITALS: Ht 167.6 cm; Wt 120.0 kg
[2016-11-27 16:44] VITALS: BP 146/65; PULSE 62; RESP 20; TEMP 97.9; O2SAT 94
--- NOTE | 2016-11-27 19:17 | PD ---
HPI Chief Complaint: General Weakness Time Seen by Provider: 18:39 Travel History International Travel<30 days: No Contact w/Intl Traveler<30days: No Traveled to known affect area: No History of Present Illness HPI 66-year-old female presents to the emergency room via ambulance for evaluation of heat exhaustion. Patient states she slept in her house last night without conditioning. States the house got up to 94. She woke up with pink cheeks and called her primary care physician who recommended she come to the emergency room for evaluation. Patient states her primary care physician told her that she was acting weird on the phone. Her only complaint is that she feels cold after waiting in the waiting room for 3 hours. Patient reports history of weakness in her legs for the past month after falling one month ago. Dr. Holloway , her medical power of employment law attorney, presents with patient and gives some of her history. She states she has history of hyponatremia and anemia and changes in mental status that is being worked up as outpatient; possible causes are long- term use of Tegretol and meningioma. PFSH Past Medical History Hx Anticoagulant Therapy: Yes (LOVENOX) Anemia: Yes Arthritis: Yes (OA, RA, SA, FIBRO) Asthma: Yes Autoimmune Disease: No Blood Disorders: Yes (pt is on lovenox ) Anxiety: Yes Depression: Yes Heart Rhythm Problems: Yes (MURMUR) Cancer: No Cardiac Catheterization: No Cardiovascular Problems: Yes High Cholesterol: Yes Chemotherapy: No Chest Pain: No Congestive Heart Failure: No COPD: No Cerebrovascular Accident: Yes (CVA) Diabetes: Yes Patient Takes Glucophage: No Diminished Hearing: No Deep Vein Thrombosis: Yes Endocrine: Yes Fibromyalgia: Yes Gastrointestinal Disorders: Yes ("excessive gas") GERD: No Genitourinary: No Hepatitis: No Hiatal Hernia: Yes Hypertension: Yes Immune Disorder: No Implanted Vascular Access Dvce: Yes Kidney Stones: No Medical other: Yes (PT HAS HX OF BLOOD CLOTS, SEES DR LIN, HEMATOLOTIST, HAS IVC FILTER) Musculoskeletal: Yes Neurologic: Yes (cva-residual none) Psychiatric: No Reproductive: Yes Respiratory: Yes (ASTHMA) Immunizations Current: Yes Migraines: No Pneumonia: Yes Radiation Therapy: No Renal Failure: No Seizures: Yes (AUGUST 2011) Sickle Cell Disease: No Sleep Apnea: No Thyroid Disease: Yes (HYPO) Ulcer: No Menopausal: Yes : 1 Para: 1 Dilation and Curettage (D&C): Yes (x4) Past Surgical History Abdominal Aneurysm Repair: No Abdominal Surgery: Yes ( ABDOMINAL TUMORS REMOVED) AICD: No Appendectomy: No Arteriovenous Shunt: No Body Medical Devices: INFERIOR VENA CAVA FILTER 12/2011 Cardiac Surgery: Yes (pacer) Cholecystectomy: Yes (1981) Coronary Artery Bypass Graft: No Coronary Stent: No Ear Surgery: No Endocrine Surgery: No Eye Surgery: No Genitourinary Surgery: Yes (R URETERAL STENT) Gynecologic Surgery: Yes (D&C X4, TOTAL HYSTERECTOMY, BILATERAL OOPHORECTOMY ) Hysterectomy: Yes (1971) Insulin Pump: No Joint Replacement: No Mastectomy: No Neurologic Surgery: Yes (BRAIN -- MENINGIOMA REMOVED 1999, RT TEMPORAL CRAINOTOMY) Oral Surgery: Yes (TA) Pacemaker: Yes ([employer]) Prostatectomy: No Tonsillectomy: No Tympanostomy Tube: No Valve Replacement: No Other Surgery: Yes (filter placed for blood clots) Social History Alcohol Use: Yes (occasionally wine) Tobacco Use: No Substance Use: Yes (smoked pot when younger) Allergies-Medications (Allergen,Severity, Reaction): Coded Allergies: acetaminophen (Unverified Allergy, Severe, Hallucinations, 11/27/16) adhesive (Unverified Allergy, Severe, skin pealing, 11/27/16) aspirin (Unverified Allergy, Severe, HIVES, 11/27/16) cephalexin (Unverified Allergy, Severe, Nausea/Vomiting, 11/27/16) clonidine (Unverified Allergy, Severe, Psychosis. Leg edema, , 11/27/16) "MAKES ME FEEL LOOPY" diclofenac (Unverified Allergy, Severe, 11/27/16) doxycycline (Unverified Allergy, Severe, UNKNOWN REACTION PER PT, 11/27/16) erythromycin base (Unverified Allergy, Severe, 11/27/16) etodolac (Unverified Allergy, Severe, 11/27/16) flurbiprofen (Unverified Allergy, Severe, 11/27/16) ibuprofen (Unverified Allergy, Severe, 11/27/16) indomethacin (Unverified Allergy, Severe, 11/27/16) ketoprofen (Unverified Allergy, Severe, 11/27/16) ketorolac (Unverified Allergy, Severe, 11/27/16) meloxicam (Unverified Allergy, Severe, 11/27/16) PT STATES SHE CAN'T TAKE NSAIDS minocycline (Unverified Allergy, Severe, UNKNOWN REACTION PER PT, 11/27/16) morphine (Unverified Allergy, Severe, Hallucinations, 11/27/16) naproxen (Unverified Allergy, Severe, 11/27/16) oxaprozin (Unverified Allergy, Severe, 11/27/16) oxycodone (Unverified Allergy, Severe, Hallucinations, 11/27/16) prochlorperazine (Unverified Allergy, Severe, b/p drop, 11/27/16) theophylline (Unverified Allergy, Severe, Nausea/Vomiting, 11/27/16) tigecycline (Unverified Allergy, Severe, UNKNOWN REACTION PER PT, 11/27/16) warfarin (Unverified Allergy, Severe, PT DOES NOT KNOW REACTION, 11/27/16) amoxicillin (Unverified Allergy, Intermediate, ITCHING, 11/27/16) formaldehyde (Unverified Allergy, Unknown, not specifically related., 11/27) atorvastatin (Unverified Adverse Reaction, Severe, numbness of both legs. , 11/27/16) ciprofloxacin (Unverified Adverse Reaction, Severe, Nausea/Vomiting, ) meclizine (Unverified Adverse Reaction, Severe, Nausea/Vomiting,dizzy, ) metformin (Unverified Adverse Reaction, Severe, Got hypoglycemic and passed out x 2. Dr MAULIK Ridley , 11/27/16) advised her never to take again. promethazine (Unverified Adverse Reaction, Severe, low blood pressure, ) by history according to patient. venlafaxine (Unverified Adverse Reaction, Severe, All the SE, 11/27/16) Uncoded Allergies: NICKEL (Allergy, Severe, RASH, 08/31/13) swelling Ice (Adverse Reaction, Severe, Severe muscle spasms and cramps, 08/31/13) Reported Meds & Prescriptions Reported Meds & Active Scripts Active Soma (Carisoprodol) 350 Mg Tab 350 Mg PO TID PRN Lortab (Hydrocodone-Acetaminophen) 10-325 Mg Tab 1 Tab PO Q4H PRN 1-2 three times a day for pain Nitrofurantoin Macrocrystal 100 Mg Cap 100 Mg PO TID Restoril (Temazepam) 15 Mg Cap 15 Mg PO HS Trazodone (Trazodone HCl) 150 Mg Tablet 150 Mg PO HS Proair Hfa 8.5 GM Inh (Albuterol Sulfate) 90 Mcg/Act Aer 2 Puff INH Q6H PRN 108 mcg/actuation Lantus Solostar Pen Inj (Insulin Glargine) 300 Unit/3 Ml Pen 20 Units SQ DAILY Novolog Inj (Insulin Aspart) 1,000 Unit/10 Ml Vial 2-12 Units SQ ACHS As directed by sliding scale. Gabapentin 400 Mg Cap 800 Cap PO TID 2 tabs (800ng) three times daily Ventolin Hfa 18 GM Inh (Albuterol Sulfate) 90 Mcg/Act Aer 2 Puff INH Q6H PRN Linzess (Linaclotide) 145 Mcg Cap 145 Mcg PO DAILY Levothyroxine (Levothyroxine Sodium) 50 Mcg Tab 50 Mcg PO DAILY Crestor (Rosuvastatin Calcium) 40 Mg Tab 40 Mg PO HS Glimepiride 1 Mg Tab 2 Tab PO BID Take with breakfast or first main meal Reported Pioglitazone (Pioglitazone HCl) 30 Mg Tab 30 Mg PO DAILY Liothyronine (Liothyronine Sodium) 5 Mcg Tab 5 Mcg PO HS Diclofenac Sodium DR (Diclofenac Sodium) 75 Mg Tabdr 75 Mg PO BID Lisinopril 20 Mg Tab 20 Mg PO DAILY Omeprazole 40 Mg Cap 40 Mg PO DAILY Creon (Amylase/Lipase/Protease) 24,000-76,000-120,000 Units Cap 1 Cap PO TID Review of Systems Except as stated in HPI: all other systems reviewed are Neg Physical Exam Narrative GENERAL: Well-nourished, well-developed female in no acute distress. Afebrile. Ambulatory. SKIN: Focused skin assessment warm/dry. No diaphoresis. HEAD: Normocephalic. EYES: No scleral icterus. No injection or drainage. NECK: Supple, trachea midline. No JVD or lymphadenopathy. CARDIOVASCULAR: Regular rate and rhythm without murmurs, gallops, or rubs. RESPIRATORY: Breath sounds equal bilaterally. No accessory muscle use. NEUROLOGICAL: Awake and alert. No obvious cranial nerve deficits. Motor grossly within normal limits. Normal speech. PSYCHIATRIC: Appropriate mood and affect; insight and judgment normal. Data Data Last Documented VS Vital Signs Date Time Temp Pulse Resp B/P (MAP) Pulse Ox O2 Delivery O2 Flow Rate FiO2 11/27/16 22:50 11/27/16 16:44 97.9 62 20 94 Orders Orders Complete Blood Count With Diff (11/27/16 19:09) Basic Metabolic Panel (Bmp) (11/27/16 19:09) Sodium Chlor 0.9% 1000 Ml Inj (Ns 1000 M (11/27/16 21:15) Labs Laboratory Tests Test 11/27/16 19:35 White Blood Count 4.0 TH/MM3 Red Blood Count 3.60 MIL/MM3 Hemoglobin 11.3 GM/DL Hematocrit 33.5 % Mean Corpuscular Volume 93.0 FL Mean Corpuscular Hemoglobin 31.4 PG Mean Corpuscular Hemoglobin Concent 33.7 % Red Cell Distribution Width 13.9 % Platelet Count 160 TH/MM3 Mean Platelet Volume 6.8 FL Neutrophils (%) (Auto) 34.5 % Lymphocytes (%) (Auto) 48.5 % Monocytes (%) (Auto) 9.1 % Eosinophils (%) (Auto) 6.7 % Basophils (%) (Auto) 1.2 % Neutrophils # (Auto) 1.4 TH/MM3 Lymphocytes # (Auto) 1.9 TH/MM3 Monocytes # (Auto) 0.4 TH/MM3 Eosinophils # (Auto) 0.3 TH/MM3 Basophils # (Auto) 0.0 TH/MM3 CBC Comment DIFF FINAL Differential Comment Blood Urea Nitrogen 25 MG/DL Creatinine 1.19 MG/DL Random Glucose 97 MG/DL Calcium Level 9.1 MG/DL Sodium Level 129 MEQ/L Potassium Level 3.9 MEQ/L Chloride Level 94 MEQ/L Carbon Dioxide Level 27.3 MEQ/L Anion Gap 8 MEQ/L Estimat Glomerular Filtration Rate 45 ML/MIN MDM Medical Decision Making Medical Screen Exam Complete: Yes Emergency Medical Condition: Yes Medical Record Reviewed: Yes Differential Diagnosis Hyponatremia, altered mental status, heat exhaustion Narrative Course 66-year-old female presents to the emergency room via ambulance for evaluation of heat exhaustion. Patient states she was in her house last night and it got up to 94. She reports feeling flushed. She called her primary care physician who recommended she come to the emergency room because she sounded strange on the phone. Patient is communicating without difficulty, making fluid sentences in the emergency room. No focal neurological deficits. She denies any medical complaints. States she feels cold after waiting in the waiting room for 3 hours. Patient's medical power of employment law attorney showed up during examination and stated that she has history of hyponatremia and is requesting to have her basic labs obtained given concern for alleged altered mental status. Vital signs stable. CBC is unremarkable, stable from previous. BMP shows mild hyponatremia ; patient has history of chronic hyponatremia for which she is being worked up as an outpatient and this appears stable from previous. Her creatinine and BUN are elevated indicating mild dehydration. She was given 1 L of fluids. There are no medical indication for admission at this time. Patient is stable for discharge. She was given a list of shelters resources to call while she does not have power. She understands and agrees to plan. Diagnosis Primary Impression: Mild dehydration Referrals: Primary Care Physician Additional Instructions: Rest and drink plenty of fluids. Take a cold shower to cool off if needed. Follow-up with a primary care physician. Return to the emergency room for worsening symptoms. Disposition: 01 DISCHARGE HOME Condition: Stable Rhianna Wright Nov 27, 2016 19:17
[2016-11-27 20:53] LABS: AUTOMATED NEUTROPHIL # 1.4 TH/MM3 (1.8-7.7); BASOPHIL % 1.2 % (0.0-2.0); EOSINOPHIL # 0.3 TH/MM3 (0-0.4); EOSINOPHIL % 6.7 % (0.0-4.0); HEMATOCRIT 33.5 % (35.0-46.0); HEMO FLAGS DIFF FINAL; LYMPH % 48.5 % (9.0-44.0); LYMPHOCYTE # 1.9 TH/MM3 (1.0-4.8); MEAN CORPUSCULAR HEMOGLOBIN 31.4 PG (27.0-34.0); MEAN CORPUSCULAR HGB CONC 33.7 % (32.0-36.0); MONO % 9.1 % (0.0-8.0); NEUT % 34.5 % (16.0-70.0); PLATELET COUNT 160 TH/MM3 (150-450); RED CELL DISTRIBUTION WIDTH 13.9 % (11.6-17.2)
[2016-11-27 21:10] LABS: BICARBONATE 27.3 MEQ/L (21.0-32.0); POTASSIUM 3.9 MEQ/L (3.5-5.1)
[2016-11-27] MEDS ORDERED: SODIUM CHLOR 0.9% 1000 ML INJ 1,000 ML IV ONE (21:15)
[2016-12-04] MEDS ORDERED: REST15CA PO (12:32)
[2016-12-04] MEDS ORDERED: LEVO50TA4 PO (14:50)
[2016-12-04] MEDS ORDERED: LIOT5TAB3 PO (15:27)
[2016-12-08] MEDS ORDERED: SOMA350T PO (15:09)
[2016-12-08] MEDS ORDERED: HYDR-3535 PO (15:09)
[2016-12-15] MEDS ORDERED: TRAZ100T6 PO (09:28)
[2016-12-15] MEDS ORDERED: FLUC150T PO (12:35)
[2016-12-15] MEDS ORDERED: HYDR-3535 PO (12:38)
[2016-12-15] MEDS ORDERED: PNEU13P IM (12:40)
== END 2016-11-27 23:09 | disposition home or self-care (01) ==
LOC: NEPD 16:38
DX: E86.0 Dehydration (principal); I10 Essential (primary) hypertension; E11.9 Type 2 diabetes mellitus without complications; M79.7 Fibromyalgia; Z79.4 Long term (current) use of insulin
CPT/HCPCS: 80048; 85025; 96360; 99284; J7030

== ENCOUNTER 2016-12-29 09:33 | Day surgery (SDC) | payer MEDICARE, OTHER ==
[~2016-12-29] VITALS: Ht 166.4 cm; Wt 118.2 kg
[~2016-12-29 09:33] MED LIST changes: +FLUC150T PO; +TRAZ100T6 PO; -TRAZ1TAB45 PO
[2016-12-29 09:50] VITALS: BP 87/51; PULSE 54; RESP 20; TEMP 97.4; O2SAT 97
[2016-12-29] MEDS ORDERED: HYDR12.56 PO (09:50)
[2016-12-29] MEDS ORDERED: SODIUM CHLOR 0.9% 1000 ML IV SCH (10:00)
[2016-12-29 10:28] LABS: AUTOMATED NEUTROPHIL # 2.6 TH/MM3 (1.8-7.7); BASOPHIL % 0.9 % (0.0-2.0); EOSINOPHIL # 0.2 TH/MM3 (0-0.4); EOSINOPHIL % 4.3 % (0.0-4.0); HEMATOCRIT 33.2 % (35.0-46.0); HEMO FLAGS DIFF FINAL; LYMPHOCYTE # 1.3 TH/MM3 (1.0-4.8); MEAN CELL VOLUME 92.3 FL (80.0-100.0); MEAN CORPUSCULAR HEMOGLOBIN 31.7 PG (27.0-34.0); MEAN CORPUSCULAR HGB CONC 34.3 % (32.0-36.0); MONO % 7.8 % (0.0-8.0); PLATELET COUNT 123 TH/MM3 (150-450); RED CELL DISTRIBUTION WIDTH 13.5 % (11.6-17.2); WHITE BLOOD COUNT 4.5 TH/MM3 (4.0-11.0)
[2016-12-29 10:33] LABS: APTT (PATIENT) 26.6 SEC (24.3-30.1); PROTHROMBIN TIME - PATIENT 11.2 SEC (9.8-11.6)
[2016-12-29] MEDS ORDERED: LIDOCAINE HCL 1% 20 ML VIAL ONE (13:07)
[2016-12-29] MEDS ORDERED: MIDAZOLAM HCL 5 MG/5 ML VIAL ONE (13:16)
--- NOTE | 2016-12-29 14:22 | PD.RAD ---
Post CT Procedure Prog Note Pre Procedure Diagnosis: (1) Clotting disorder Post Procedure Diagnosis: (1) Clotting disorder Procedure Date: Dec 29, 2016 Supervising Radiologist: Rex Khan Anesthesia: Local, Conscious Sedation Plan of Activity Patient to Unit: ROPU Patient Condition: Good See PACS Report for procedural detail/treatment Biopsy Imaging Guidance: CT Biopsy Procedure: Bone Marrow Specimen: Core Biopsy Rex Khan MD Dec 29, 2016 14:22
[2016-12-29 14:35] VITALS: BP 128/48; PULSE 60; RESP 17; TEMP 97.5; O2SAT 94
[2016-12-29 14:50] LABS: BONE MARROW PROCESSING COMPLETE; IRON STAIN DONE; JENNER GIEMSA STAIN DONE
--- NOTE | 2016-12-29 14:56 | RADRPT ---
EXAM DATE/TIME: 12/29/2016 13:45 [facility] COMPARISON: No previous studies available for comparison. INDICATIONS : Pancytopenia. SEDATION TIME: 20 minutes BIOPSY SITE: Right Iliac MEDICATION(S): 1.) 5 mg midazolam (Versed) IV 2.) 200 mcg fentanyl (Sublimaze) DEVICE(S): 1.) 11 gauge Bone marrow biopsy needle MEDICAL HISTORY : Pancytopenia. SURGICAL HISTORY : Pacemaker. ENCOUNTER: Initial ACUITY: 1 day PAIN SCORE: 0/10 LOCATION: Right pelvis A total of one core specimen(s) were obtained and sent to the laboratory for pathologic evaluation. PROCEDURE: 1. CT guided pelvic biopsy. Prior to the procedure informed consent was obtained. Any appropriate prior imaging studies were rev iewed. Using automated exposure control and adjustment of the mA and/or kV according to patient size , radiation dose was kept as low as reasonably achievable to obtain optimal diagnostic quality images . DICOM format image data is available electronically for review and comparison. The site was prepped in a sterile fashion. Full sterile technique was used, including cap, mask, haley rile gloves and gown and a large sterile sheet. Hand hygiene and 2% chlorhexidine and/or betadine/al cohol prep was utilized per protocol for cutaneous antisepsis. The skin and subcutaneous tissues wer e infiltrated with local anesthetic solution. With CT guidance the previously identified target was localized. Biopsy was performed using the presc ribed needle as above. Following biopsy marrow aspiration was performed with repeat puncture. Adequa te hemostasis was obtained with compression at the puncture site. Follow-up CT scan reveals no hemorrhage. Conscious sedation was performed with the prescribed dosages and duration as above in the presence of an independent trained radiology nurse to assist in the monitoring of the patient. EKG and oximetry remained stable throughout the procedure. The patient tolerated the procedure well and there were no complications. The patient was sent to Radiology Outpatient Unit in stable condition. CONCLUSION: 1. Uncomplicated CT guided bone marrow aspirate. 2. Uncomplicated CT guided bone marrow biopsy. Rex Khan MD on December 29, 2016 at 14:54 Board Certified Radiologist. This report was verified electronically.
[2016-12-29 15:05] VITALS: BP 138/83; PULSE 54; RESP 17; O2SAT 94
[2016-12-29] MEDS ORDERED: ACETAMINOPHEN/HYDROcodone 325 MG/10 MG TAB PO ONE (15:30)
[2016-12-29 15:35] VITALS: BP 120/63; PULSE 54; RESP 17; O2SAT 94
[2016-12-29 16:05] VITALS: BP 125/63; PULSE 54; RESP 17; O2SAT 94
== END 2016-12-29 16:47 | disposition home or self-care (01) ==
LOC: HRAD 09:33 → HRIP 09:34 → HRAD 16:47
PROVIDERS: ATTEND Internal Medicine Hematology & Oncology
DX: D61.818 Other pancytopenia (principal); D68.9 Coagulation defect, unspecified
CPT/HCPCS: 38221; 77012; 85025; 85097; 85610; 85730; 88184; 88185; 88237; 88264; 88280; 88305; 88311; 88313; 99152; 99153; C1830; G0364; J2250; J3010

== ENCOUNTER → 2017-08-11 | Outpatient (CLI) | payer MEDICARE, OTHER ==
[~2017-08-11] MED LIST changes: +BD P31MI2 SQ; +CHOL1CAP34 PO; +DICL1GEL7 TOPICAL; -FLUC150T PO; +HUMA75IN SQ; -HYDR-3535 PO; +HYDR-3583 PO; +HYDR25TA5 PO; -NITR1CAP36 PO; +TRAZ100T10 PO; -TRAZ100T6 PO; +TRAZ1TAB14 PO; -VENTAER INH; +[UNRECOGNIZED DRUG - SUPPLY]
--- NOTE | 2017-08-11 14:09 | RADRPT ---
EXAM DATE: 08/11/2017 12:12 PM EDT AGE/SEX: 67 years / Female INDICATIONS: Edema. Pt c/o lateral mid foot pain x 2 1/2 weeks. CLINICAL DATA: This is the patient's initial encounter. Patient reports that signs and symptoms have been present for 2 weeks and indicates a pain score of 5/10. MEDICAL/SURGICAL HISTORY: Hypertension. Seizures Hysterectomy. Tonsillectomy. Cholecystectom y. Bilat Knees, Crainiotomy, Pacemaker, Polio, Oopherectomy COMPARISON: No prior exams available for comparison. TECHNIQUE: Multiplanar, multisequence MRI examination was performed without contrast. FINDINGS: Bones: There is low-grade edema in the base of the fifth metatarsal bone.. Low plain film would be he lpful to evaluate the cortex at the peroneal brevis insertion to rule out a fracture. Joint Spaces: There is arthritic change between the navicular bone and the cuneiform bone medially. T here is arthritis of the talonavicular joint. Tendons: The flexor tendons are intact. Soft Tissues: Marked soft tissue swelling across the dorsum of the foot. Other: Mild thickening involving the origin of plantar aponeurosis suggesting some chronic plantar fa sciitis. There is low-grade edema in the plantar musculature.. CONCLUSION: 1. Questionable fracture involving the base of the fifth metatarsal bone. Plain films recommended. 2. There is soft tissue swelling across the foot. 3. Mild thickening involving the origin of plantar aponeurosis suggesting chronic plantar fasciitis. 4. Mild arthritis in the hindfoot Electronically signed by: Sunday Florez MD 08/11/2017 2:08 PM EDT
== END ==
LOC: HRAD 09:16
PROVIDERS: ATTEND Family Medicine
DX: M79.672 Pain in left foot (principal)
CPT/HCPCS: 73718

== ENCOUNTER 2017-09-10 18:14 | Observation (INO) | END 2017-09-11 11:10 | disposition home or self-care (01) | LOC: NEPFCDU 18:14 | PROVIDERS: ADMIT Internal Medicine Cardiovascular Disease; ATTEND Internal Medicine Cardiovascular Disease ==